=== PATIENT | male | born 1945 | race Caucasian/White ===

== ENCOUNTER → 2016-09-23 | Outpatient (CLI) | payer MEDICARE, OTHER ==
--- NOTE | 2016-09-23 14:29 | CT ---
EXAMINATION TYPE: CT brain w con DATE OF EXAM: 09/23/2016 COMPARISON: NONE HISTORY: continuous NAVARRO CT DLP: 1115 mGycm Automated exposure control for dose reduction was used. CONTRAST: CT scan of the head is performed with IV Contrast, patient injected with 100 mL of Omnipaque 300. FINDINGS: There is no abnormal enhancing mass or midline shift identified. The ventricles and sulci are within normal limits in size. The globes are intact and the visualized sinuses are clear. IMPRESSION: Negative contrast enhanced head CT exam.
== END | disposition home or self-care (01) ==
LOC: RADCTMAIN 13:46
PROVIDERS: ATTEND Family Medicine
DX: R51 Headache (principal)
CPT/HCPCS: 70460; Q9967

== ENCOUNTER → 2017-06-04 | Outpatient (CLI) | payer MEDICARE, OTHER ==
--- NOTE | 2017-06-04 14:20 | CT ---
EXAMINATION TYPE: CT cervical spine wo con DATE OF EXAM: 06/04/2017 COMPARISON: NONE HISTORY: Patient complains of chronic posterior neck pain. CT DLP: 552.5 mGycm Automated exposure control for dose reduction was used. TECHNIQUE: CT scan of the cervical spine is obtained without contrast, axial images are obtained, sa gittal and coronal reformatted images are also reviewed. FINDINGS: Assessment spinal canal and in particular spinal cord limited by noncontrast technique, res olution and artifact . There is loss of the normal cervical lordosis. Slight kyphosis noted with severe degenerative disc di sease at levels C3-T1 and facet arthropathy to millimeter anterolisthesis of C3 on C4 likely degenera tive. C2-C3 there is facet arthropathy greater on the left and uncovertebral joint projecting. Moderate cassy ateral foraminal encroachment seen. No obvious disc herniation. At C3-C4 there is severe degenerative disc disease with marked facet arthropathy and vertebral joint projecting. Severe bilateral foraminal encroachment. No obvious disc herniation. At C4-C5 there is moderate degenerative disc disease. There is facet arthropathy and uncovertebral sami int hypertrophy. Posterior cervical spondylosis noted with mild effacement of thecal sac. No definite disc herniation. Mild left foraminal encroachment. At C5-C6 there is severe degenerative disc disease with posterior cervical spondylosis. Facet arthrop athy and uncovertebral joint hypertrophy contribute to severe foraminal encroachment. Suspect canal s tenosis more adequately assessed with MRI. At C6-C7 severe degenerative disc disease with posterior spondylosis, uncovertebral joint hypertrophy and facet arthropathy. Moderate bilateral foraminal encroachment. Suspect canal stenosis. Due to red uced resolution artifact MRI recommended. C7-T1 there is no obvious disc herniation or canal stenosis. Neural foramina appear patent. There is degenerative disc disease. Visualized prevertebral soft tissues within normal limits. There is an area of right-sided lymphadeno shelley within the right carotid space measuring 1.4 cm in short axis compatible with pathologic adenop athy Skull base is clear. Nasopharynx and oropharynx symmetric. Parotid glands have a normal appearance. L iveth apices clear. IMPRESSION: 1. Severe multilevel degenerative disc disease and facet arthropathy. Canal stenosis at C5-6 and C6-C 7 is noted. 2. Multilevel significant neural foraminal encroachment. 3. There is pathologic adenopathy within the soft tissues of the right neck measuring 1.4 cm in short axis. Recommend CT soft tissue neck for further evaluation.
== END | disposition home or self-care (01) ==
LOC: RADCTMAIN 13:05
PROVIDERS: ATTEND Family Medicine
DX: M48.02 Spinal stenosis, cervical region (principal); M50.31 Other cervical disc degeneration, high cervical region; M46.92 Unspecified inflammatory spondylopathy, cervical region; R59.0 Localized enlarged lymph nodes; Z88.2 Allergy status to sulfonamides
CPT/HCPCS: 72125

== ENCOUNTER 2017-07-02 11:43 | Day surgery (SDC) | payer MEDICARE, OTHER ==
[2017-07-02 12:37] VITALS: RESP 16; TEMP 97.7
--- NOTE | 2017-07-02 15:01 | US ---
EXAMINATION TYPE: US biopsy lymph node DATE OF EXAM: 07/02/2017 HISTORY: Submandibular mass. FINDINGS: Maximal barrier technique was utilized. The skin overlying a suitable path to the patient' s mass was localized with ultrasound and the overlying skin prepped and draped. Ultrasound was utili zed with sterile technique. Lidocaine was used for local anesthesia. A single pass with a 25-gauge n eedle was made under ultrasound guidance into the lesion and aspirated specimen submitted to cytology . A skin flavia was made with a scalpel. An 18-gauge needle was advanced under direct ultrasound guid ance and core specimen obtained of the mass. Specimen submitted in formalin to Pathology. Following the procedure, hemostasis achieved and the patient is discharged in stable condition without complic ation. IMPRESSION:STATUS POST ULTRASOUND GUIDED CORE BIOPSY OF submandibular MASS and fine-needle aspiration , PATHOLOGY IS PENDING. THIS PROCEDURE IS PERFORMED BY THE UNDERSIGNED.
[2017-07-02 15:59] VITALS: BP 136/83; PULSE 57
== END 2017-07-02 13:50 | disposition home or self-care (01) ==
LOC: RADPROMAIN 11:43
PROVIDERS: ATTEND Surgery
DX: C77.0 Secondary and unspecified malignant neoplasm of lymph nodes of head, face and neck (principal); Z88.0 Allergy status to penicillin
CPT/HCPCS: 38505; 76942; 88173; 88305; 88341; 88342

== ENCOUNTER → 2017-07-18 | Outpatient (CLI) | payer MEDICARE, OTHER ==
--- NOTE | 2017-07-20 13:26 | PE ---
Nuclear medicine PET/CT HISTORY: Head and neck cancer, initial Patient received 13.8 mCi F-18 FDG intravenously in delayed scanning was performed from the skull bas e to the mid thighs. There were small [id number] images obtained of the head and neck. Localizatio n and attenuation correction CT scan was also performed. Correlation to CT cervical spine 06/04/2017 FINDINGS: Head and neck: The right-sided adenopathy in the submandibular location is again noted, there is asso ciated hypermetabolic uptake, SUV is 5-6. No additional associated adenopathy or hypermetabolic upta ke. CHEST: There is no mediastinal adenopathy. No evident lung mass. There is wedge-shaped increased atte nuation at the left lung base most typical of subsegmental atelectasis, no significant hypermetabolic uptake. There is no pleural or pericardial effusion. Ascending aorta is aneurysmal measuring approxi mately 4.8 cm in greatest dimension, descending aorta also ectatic and 3.4 cm. Small amount of jackson ry artery calcification. There is hiatal hernia with partial intrathoracic stomach present. Abdomen pelvis: The kidneys are largely replaced by cysts on the right greater than left. No evident adrenal mass or liver mass. No retroperitoneal adenopathy. No suspicious hypermetabolic uptake. Surgi wilma clips noted in the left inguinal region, small left inguinal hernia may be present. Prostate is e nlarged. Osseous structures show no suspicious hypermetabolic uptake. Degenerative disc change present at the lumbosacral junction. IMPRESSION: Suspicious hypermetabolic uptake is localized to the submandibular node on the right. Aor tic aneurysm. Additional findings above.
== END | disposition home or self-care (01) ==
LOC: RADPETMAIN 08:36
PROVIDERS: ATTEND Radiology Diagnostic Radiology
DX: C09.9 Malignant neoplasm of tonsil, unspecified (principal); R59.0 Localized enlarged lymph nodes; J98.11 Atelectasis; I71.2 Thoracic aortic aneurysm, without rupture; I25.10 Atherosclerotic heart disease of native coronary artery without angina pectoris; N28.1 Cyst of kidney, acquired; N40.0 Benign prostatic hyperplasia without lower urinary tract symptoms; Z98.890 Other specified postprocedural states
CPT/HCPCS: 78815; A9552

== ENCOUNTER → 2017-07-31 | Outpatient (CLI) | payer MEDICARE, OTHER ==
[2017-07-31 11:22] LABS: Basophils % (A) 1 %; Eosinophils # (A) 0.2 k/uL (0-0.7); Eosinophils % (A) 3 %; HGB 17.1 gm/dL (13.0-17.5); Lymphocytes # (A) 1.8 k/uL (1.0-4.8); Lymphocytes % (A) 28 %; MCH 29.8 pg (25.0-35.0); MCHC 33.5 g/dL (31.0-37.0); MCV 88.8 fL (80.0-100.0); Mean Platelet Volume 6.9; Monocytes # (A) 0.4 k/uL (0-1.0); Monocytes % (A) 7 %; Neutrophils # (A) 3.7 k/uL (1.3-7.7); Neutrophils % (A) 59 %; Platelet Count 214 k/uL (150-450); RBC 5.75 m/uL (4.30-5.90); RDW 14.1 % (11.5-15.5); WBC 6.3 k/uL (3.8-10.6)
[2017-07-31 11:51] LABS: Albumin 4.5 g/dL (3.5-5.0); Calcium 10.1 mg/dL (8.4-10.2); Potassium 4.6 mmol/L (3.5-5.1); Total Bilirubin 0.9 mg/dL (0.2-1.3); Total Protein 7.4 g/dL (6.3-8.2)
== END | disposition home or self-care (01) ==
LOC: LABPAT 10:47
PROVIDERS: ATTEND Anesthesiology
DX: Z01.812 Encounter for preprocedural laboratory examination (principal); C09.9 Malignant neoplasm of tonsil, unspecified; Z79.899 Other long term (current) drug therapy
CPT/HCPCS: 80053; 85025

== ENCOUNTER 2017-08-06 09:08 | Day surgery (SDC) | payer MEDICARE, OTHER ==
[2017-07-30 16:06] VITALS: BMI 36.6
[~2017-08-06 09:08] MED LIST: DEXAMETHASONE SOD PHOSPHATE 10 MG/ML 1 ML VIAL IV ONE; DEXAMETHASONE SOD PHOSPHATE 4 MG/ML 1 ML VIAL IV ONE; FAMOTIDINE 20 MG/2 ML VIAL IV ONE; LACTATED RINGERS 1,000 ML IV SCH; LIDOCAINE 1% 20 ML VIAL (10MG/ML) FOR IV START INTRADERMA PRN; MIDAZOLAM 2 MG/2 ML VIAL IV PRN; ONDANSETRON 4 MG/2 ML VIAL IVP ONE; SCOPOLAMINE 1.5MG/72HR PATCH TRANSDERM ONE; fentaNYL (PF) 50 MCG/ML 2 ML AMP IV PRN
[2017-08-06] MEDS ORDERED: SUCCINYLCHOLINE CHLORIDE VIAL 200 MG/10 ML VIAL IV ONE (10:49)
[2017-08-06] MEDS ORDERED: MIDAZOLAM 2 MG/2 ML VIAL ONE (10:49)
[2017-08-06] MEDS ORDERED: fentaNYL (PF) 50 MCG/ML 2 ML AMP ONE (10:49)
[2017-08-06] MEDS ORDERED: LIDOCAINE 1% INJ 10MG/ML (20 ML MDV) ONE (10:49)
[2017-08-06] MEDS ORDERED: ROCURONIUM BROMIDE 10 MG/ML 10 ML VIAL IV ONE (10:49)
[2017-08-06] MEDS ORDERED: DEXAMETHASONE SOD PHOS (MDV) 100 MG/10 ML VIAL ONE (10:49)
[2017-08-06] MEDS ORDERED: GLYCOPYRROLATE 0.2 MG/ML 2 ML VIAL ONE (10:49)
[2017-08-06] MEDS ORDERED: PROPOFOL 10 MG/ML 20 ML VIAL IV ONE (10:49)
[2017-08-06] MEDS ORDERED: NEOSTIGMINE 1 MG/ML 10 ML VIAL ONE (10:49)
[2017-08-06] MEDS ORDERED: LIDOCAINE 1%-EPI 1:100,000 20 ML VIAL SQ ONE (11:08)
[2017-08-06] MEDS ORDERED: BUPIVACAINE (PF) 0.5% 30 ML VIAL SQ ONE (11:09)
[2017-08-06 11:50] VITALS: TEMP 96.9
--- NOTE | 2017-08-06 12:08 | P.OP ---
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 The primary was unable to be identified and a triple endoscopy and survey biopsies including nasopharyngeal biopsies were a tonsillectomy etc. were recommended. All risks, benefits, and alternative therapies were discussed. Consent was obtained and all questions were answered. Operative Findings: Patient had an enlarged tonsil on the right with irregularity to the nasopharynx and right base of tongue which were biopsied. No other pathology was noted. Description of Procedure: This patient was taken to the operative room and placed in the supine position. A general inhalation anesthetic was administered to the patient by mask and subsequently intubated with a cuffed endotracheal tube utilizing a #5 CRITICAL CARE PARAMEDIC tube. A Jako laryngoscope was placed into the patient's mouth with care to avoid any trauma to the lips teeth gums and tongue. The entire oropharynx, hypopharynx was evaluated with use of an endoscope and microscopic Zeiss microscope evaluation utilizing a Jako laryngoscope. There was an area on the right base of tongue that was biopsied the rest of the oropharynx and hypopharynx was unremarkable. The Jako laryngoscope that we utilized for this examination was removed. An esophagoscope was inserted utilizing a rigid esophagoscope and the entire length of the esophagus was evaluated. There is no signs of any esophageal abnormalities. We went from the upper to the lower esophageal sphincter and followed the entire length of the esophagus and there is no evidence of reflux Mitchell's esophagus or any other abnormality. A bronchoscope was inserted and all 12 segments of the lungs were evaluated to the extent of visualization. There is no signs of any mucosal abnormality no signs of any other pulmonary issues. A 0 endoscope was inserted into the nose and the nasopharynx was visualized and was biopsied and a survey fashion. Patient tolerated this well. The patient was taken to postanesthesia recovery in excellent condition and follow-up will be in the office next week. Patient is scheduled for chemotherapy and a dental evaluation.
--- NOTE | 2017-08-06 12:20 | P.OP ---
Date of Procedure: 08/06/17 Preoperative Diagnosis: Right neck cancer Postoperative Diagnosis: Same Procedure(s) Performed: Right-sided tonsillectomy Anesthesia: DEONTE Surgeon: Glenn Spencer Estimated Blood Loss (ml): 5 Pathology: other (right tonsil) Condition: stable Disposition: PACU Indications for Procedure: Patient has right neck cancer tonsil as an etiology needs to be ruled out Operative Findings: Slightly enlarged right tonsil Description of Procedure: Patient was taken to the operative room placed in the supine position. A general inhalation anesthetic was administered to the mouth was opened with McIvor mouth gag. The tonsil was grasped with an Allis forceps and brought medially on the right was removed with use of Coblation and hemostasis was spontaneous. The area was injected with Marcaine and no bleeding was encountered. Complete tonsillectomy on the right side was accomplished.
[2017-08-06] MEDS ORDERED: HYDROcodone/APAP 5-325MG 1 EACH TAB PO ONE (13:22)
[2017-08-06 13:25] VITALS: BP 129/90; PULSE 77; RESP 18
== END 2017-08-06 14:02 | disposition home or self-care (01) ==
LOC: OR 09:08
PROVIDERS: ATTEND Otolaryngology
DX: J35.1 Hypertrophy of tonsils (principal); C77.0 Secondary and unspecified malignant neoplasm of lymph nodes of head, face and neck; R05 Cough; R47.02 Dysphasia; M19.90 Unspecified osteoarthritis, unspecified site; I10 Essential (primary) hypertension; K21.9 Gastro-esophageal reflux disease without esophagitis; Z86.718 Personal history of other venous thrombosis and embolism; Z87.891 Personal history of nicotine dependence; Z88.0 Allergy status to penicillin; Z79.1 Long term (current) use of non-steroidal anti-inflammatories (NSAID); Z79.82 Long term (current) use of aspirin; Z79.51 Long term (current) use of inhaled steroids; Z79.899 Other long term (current) drug therapy
CPT/HCPCS: 42826; 31536; 43191; 31622; 42999; 88304; 88305; J2250; J0330; J1100 ×2; J2710; J2001; J3010; J2704

== ENCOUNTER 2017-09-15 11:12 | Day surgery (SDC) | payer MEDICARE, OTHER ==
[2017-09-10 15:52] VITALS: BMI 35.2
[~2017-09-15 11:12] MED LIST changes: -DEXAMETHASONE SOD PHOSPHATE 10 MG/ML 1 ML VIAL IV ONE; -DEXAMETHASONE SOD PHOSPHATE 4 MG/ML 1 ML VIAL IV ONE; -FAMOTIDINE 20 MG/2 ML VIAL IV ONE; -ONDANSETRON 4 MG/2 ML VIAL IVP ONE; -SCOPOLAMINE 1.5MG/72HR PATCH TRANSDERM ONE; -fentaNYL (PF) 50 MCG/ML 2 ML AMP IV PRN
[2017-09-15 11:31] VITALS: RESP 16; TEMP 97
[2017-09-15] MEDS ORDERED: LIDOCAINE 1% INJ 10MG/ML (20 ML MDV) ONE (12:26)
[2017-09-15] MEDS ORDERED: PROPOFOL 10 MG/ML 20 ML VIAL IV ONE (12:26)
--- NOTE | 2017-09-15 12:54 | P.PCN ---
Date of Procedure: 09/15/17 Procedure(s) Performed: Procedure: Total colonoscopy. Preoperative diagnosis: Screening for neoplasia. Postoperative diagnosis: Diverticulosis with no evidence of acute diverticulitis , strictures, polyps or cancer. Preparation: HalfLytely prep. Sedation: Was provided by anesthesia. Brief clinical history: The patient is a 72-year-old male who is scheduled for this evaluation for screening for neoplasia because of history of polyps. His last exam was more than 5 years ago. The patient has no abdominal complaints, bleeding or anemia. He is having some issues with constipation related to treatment he is receiving for lymph node cancer. Procedure: With the patient on his left lateral decubitus position and after informed consent and adequate sedation, the perianal area was inspected and it did not show any fissures or fistulas. There were no masses felt on digital rectal examination. The Olympus CFQ 160L video colonoscope was then inserted in the rectum in the usual fashion and advanced to the cecum. There were multiple diverticular orifices seen scattered mostly on the left side with occasional diverticular orifices seen around the hepatic flexure and on the right side with no evidence of acute diverticulitis or strictures. No polyps or tumors were seen. I retroflexed the endoscope in the rectum before the endoscope was withdrawn. The patient tolerated the procedure well. Plan: The patient was reassured. Discussed dietary measures. He will follow up with you as planned and I recommended repeat colonoscopy in 5 years.
[2017-09-15 13:11] VITALS: BP 106/66; PULSE 63
== END 2017-09-15 13:37 | disposition home or self-care (01) ==
LOC: ORWHC2ENDO 11:12
DX: Z12.11 Encounter for screening for malignant neoplasm of colon (principal); K57.30 Diverticulosis of large intestine without perforation or abscess without bleeding; Z86.010 Personal history of colon polyps; I25.10 Atherosclerotic heart disease of native coronary artery without angina pectoris; K21.9 Gastro-esophageal reflux disease without esophagitis; M19.90 Unspecified osteoarthritis, unspecified site; Z86.718 Personal history of other venous thrombosis and embolism; Z88.0 Allergy status to penicillin
CPT/HCPCS: J2001; J2704; G0105; 45378

== ENCOUNTER → 2017-09-24 | Outpatient (CLI) | payer MEDICARE, OTHER ==
[2017-09-24 15:09] LABS: Albumin 4.4 g/dL (3.5-5.0); Magnesium 1.9 mg/dL (1.6-2.3); Total Bilirubin 1.4 mg/dL (0.2-1.3); Total Protein 7.8 g/dL (6.3-8.2)
[2017-09-24 15:26] LABS: Potassium 4.6 mmol/L (3.5-5.1)
--- NOTE | 2017-09-24 18:03 | NM ---
EXAMINATION TYPE: NM pul vent and perfuse DATE OF EXAM: 09/24/2017 COMPARISON: NONE HISTORY: Dyspnea TECHNIQUE: Utilizing inhalation of 39.5 mCi Tc 99m DTPA aerosol and intravenous injection of 5 mCi o f Tc 99m MAA, ventilation and perfusion images are acquired post injection in multiple projections. FINDINGS: The radiotracer distribution, on both the perfusion and ventilation scintigraphic images, i s moderately heterogeneous in both the right and left lung. These are predominantly matched bilateral scintigraphic defects, with the lung ventilation defects be ing slightly greater than the lung perfusion defects. IMPRESSION: Moderately heterogeneous distribution of the radiopharmaceutical activity. Overall impression is low probability for the diagnosis of pulmonary embolism.
== END ==
LOC: RADCTMAIN 14:17
PROVIDERS: ATTEND Internal Medicine Hematology & Oncology
DX: R06.02 Shortness of breath (principal); Z88.0 Allergy status to penicillin
CPT/HCPCS: 80053; 83735; 78582; A9540; A9567

== ENCOUNTER → 2017-12-05 | Outpatient (CLI) | payer MEDICARE, OTHER | LOC: RADPETMAIN 11:39 | PROVIDERS: ATTEND Internal Medicine Hematology & Oncology | DX: Z53.9 Procedure and treatment not carried out, unspecified reason (principal) ==

== ENCOUNTER → 2017-12-12 | Outpatient (CLI) | payer MEDICARE, OTHER ==
--- NOTE | 2017-12-12 20:24 | PE ---
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 TECHNIQUE: Following the intravenous administration of 10.12 mCi of F-18 FDG, whole body images are performed from the skull base to the midthigh. Images are reviewed on the computer in the coronal, a xial, and sagittal planes. Reconstructed rotating images are created on independent workstation and reviewed on the computer. A noncontrast CT is performed in conjunction with the PET scan. SCAN: Subsequent Scan FINDINGS: SKULL BASE AND NECK: Previously enlarged right submandibular lymph node is diminished in size on cur rent study with more central hypodensity or necrosis, and measures 1.4 x 1.1 cm axial image 48 and is currently ametabolic. No new areas of abnormal hypermetabolic uptake are seen. CHEST, MEDIASTINUM, AND HILAR REGION: Background chronic emphysematous changes redemonstrated. There is persistent wedge-shaped area of consolidation left lung base above diaphragm without abnormal hype rmetabolic uptake suggesting atelectasis and/or scarring. ABDOMEN AND PELVIS: No new areas of abnormal hypermetabolic uptake are identified. OSSEOUS STRUCTURES: No new areas of abnormal hypermetabolic uptake are seen. OTHER CT: Cardiomegaly is redemonstrated. Ascending aorta measures up to 4.8 cm in diameter on axial image 96 not significantly changed from prior. Coronary artery calcification is again seen which is n oted marker for coronary artery disease. Moderate to large size hiatal hernia is redemonstrated. There are innumerable cysts bilaterally throughout both kidneys, underlying polycystic kidney disease is suspected. Correlate clinically. No significant change from prior. Diverticula scattered throughout the colon most prominent in the sigmoid colon is redemonstrated. Prostate gland is stable and suspected mildly enlarged. Surgical clips left groin region are redemonstrated. There is persistent moderate sized fat-containin g left inguinal hernia felt stable. There is mild to moderate vascular calcification of aorta extending into branch vessels. IMPRESSION: Positive treatment response in right-sided neck adenopathy. No new or metastatic disease is identified.
== END | disposition home or self-care (01) ==
LOC: RADPETMAIN 14:46
PROVIDERS: ATTEND Internal Medicine Hematology & Oncology
DX: C09.0 Malignant neoplasm of tonsillar fossa (principal); R59.0 Localized enlarged lymph nodes
CPT/HCPCS: 78815; A9552

== ENCOUNTER 2017-12-22 09:08 | Day surgery (SDC) | payer MEDICARE, OTHER ==
[2017-12-22 10:12] VITALS: RESP 16; TEMP 97.1
[2017-12-22 10:39] VITALS: BP 135/82; PULSE 60
--- NOTE | 2017-12-22 13:13 | US ---
EXAMINATION TYPE: US fine needle aspiration DATE OF EXAM: 12/22/2017 COMPARISON: PET/CT 07/18/2017 HISTORY: Right neck mass. Maximal barrier technique was utilized. After informed consent, skin overlying the lesion in the rig ht neck was localized with ultrasound and the overlying skin prepped and draped. Ultrasound was utili zed using sterile technique. Lidocaine was used for local anesthesia. Four passes with a 25-gauge ne edle were made into the nodule and aspirated specimen was submitted to cytology. Following the proce dure hemostasis achieved. No immediate complication. The patient discharged in stable condition. IMPRESSION: STATUS POST ULTRASOUND GUIDED FINE NEEDLE ASPIRATION OF RIGHT NECK MASS, PATHOLOGY IS ELISA GAN. THIS PROCEDURE WAS PERFORMED BY THE UNDERSIGNED.
== END 2017-12-22 10:30 | disposition home or self-care (01) ==
LOC: RADPROMAIN 09:08
PROVIDERS: ATTEND Otolaryngology
DX: R59.0 Localized enlarged lymph nodes (principal); M19.90 Unspecified osteoarthritis, unspecified site; K11.7 Disturbances of salivary secretion; T66.XXXA Radiation sickness, unspecified, initial encounter; I10 Essential (primary) hypertension; Z85.810 Personal history of malignant neoplasm of tongue; Z79.01 Long term (current) use of anticoagulants; Z79.82 Long term (current) use of aspirin; Z79.899 Other long term (current) drug therapy; Z79.51 Long term (current) use of inhaled steroids; Z87.891 Personal history of nicotine dependence; Z79.1 Long term (current) use of non-steroidal anti-inflammatories (NSAID); Z79.2 Long term (current) use of antibiotics; Z92.3 Personal history of irradiation; Z92.21 Personal history of antineoplastic chemotherapy
CPT/HCPCS: 10022; 76942; 88173; 88305

== ENCOUNTER → 2018-01-11 | Outpatient (CLI) | payer MEDICARE, OTHER ==
--- NOTE | 2018-01-11 13:56 | US ---
EXAMINATION TYPE: US thyroid st tissue head/neck DATE OF EXAM: 01/11/2018 COMPARISON: Previous exam dated 12/22/2017 CLINICAL HISTORY: R22.1 SWELLING MASS. 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 IMPRESSION: The abnormal node in the right neck shows a similar appearance to prior exam.
== END | disposition home or self-care (01) ==
LOC: RADUSWWP 13:08
PROVIDERS: ATTEND Otolaryngology
DX: R22.1 Localized swelling, mass and lump, neck (principal)
CPT/HCPCS: 76536

== ENCOUNTER 2018-01-19 09:18 | Day surgery (SDC) | payer MEDICARE, OTHER ==
[2018-01-19 09:39] VITALS: RESP 14; TEMP 98.2
[2018-01-19 10:28] VITALS: BP 130/83; PULSE 71
--- NOTE | 2018-01-19 14:45 | US ---
EXAMINATION TYPE: US fine needle aspiration DATE OF EXAM: 01/19/2018 COMPARISON: Previous exam 12/22/2017 HISTORY: Right neck mass Maximal barrier technique was utilized. After informed consent, skin overlying the lesion in the rig ht neck was localized with ultrasound and the overlying skin prepped and draped. Ultrasound was utili zed using sterile technique. Lidocaine was used for local anesthesia. Four passes with a 25-gauge ne edle were made into the nodule and aspirated specimen was submitted to cytology. Following the proce dure hemostasis achieved. No immediate complication. The patient discharged in stable condition. IMPRESSION: STATUS POST ULTRASOUND GUIDED FINE NEEDLE ASPIRATION OF RIGHT NECK NODULE, PATHOLOGY IS P ENDING. THIS PROCEDURE WAS PERFORMED BY THE UNDERSIGNED.
== END 2018-01-19 10:40 | disposition home or self-care (01) ==
LOC: RADPROMAIN 09:18
PROVIDERS: ATTEND Otolaryngology
DX: R22.1 Localized swelling, mass and lump, neck (principal)
CPT/HCPCS: 10022; 76942; 88173; 88305

== ENCOUNTER 2018-01-19 16:25 | Emergency (ER) | payer MEDICARE, OTHER ==
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
[2018-01-19 18:05] LABS: Basophils % (A) 0 %; Eosinophils # (A) 0.2 k/uL (0-0.7); Eosinophils % (A) 4 %; HCT 42.6 % (39.0-53.0); HGB 14.4 gm/dL (13.0-17.5); Lymphocytes # (A) 0.9 k/uL (1.0-4.8); Lymphocytes % (A) 19 %; MCH 31.8 pg (25.0-35.0); MCHC 33.7 g/dL (31.0-37.0); Mean Platelet Volume 8.2; Monocytes # (A) 0.4 k/uL (0-1.0); Monocytes % (A) 8 %; Neutrophils % (A) 67 %; Platelet Count 165 k/uL (150-450); RBC 4.51 m/uL (4.30-5.90); RDW 12.7 % (11.5-15.5); WBC 4.5 k/uL (3.8-10.6)
[2018-01-19 18:10] LABS: MCV 94.5 fL (80.0-100.0)
[2018-01-19 18:12] LABS: D-Dimer 0.26 mg/L FEU (<0.60); INR 1.1 (<1.2); Partial Thromboplastin Time 24.2 sec (22.0-30.0); Prothrombin Time 10.4 sec (9.0-12.0)
[2018-01-19 18:13] LABS: Albumin 4.3 g/dL (3.5-5.0); Calcium 9.9 mg/dL (8.4-10.2); Magnesium 1.7 mg/dL (1.6-2.3); Total Bilirubin 0.6 mg/dL (0.2-1.3); Total Protein 7.4 g/dL (6.3-8.2)
[2018-01-19 18:20] LABS: Creatine Kinase 54 U/L (55-170)
[2018-01-19 18:33] LABS: Creatine Kinase MB 0.9 ng/mL (0.0-2.4); Troponin I <0.012 ng/mL (0.000-0.034)
[2018-01-19 19:21] LABS: Appearance,Urine Clear (Clear); Bilirubin,Urine Negative (Negative); Blood,Urine Negative (Negative); Color,Urine Yellow; Glucose,Urine (UA) Negative (Negative); Ketones,Urine Negative (Negative); Leukocyte Esterase,Urine Negative (Negative); Nitrite,Urine Negative (Negative); Protein,Urine Trace (Negative); Specific Gravity,Urine 1.019 (1.001-1.035); Urobilinogen,Urine <2.0 mg/dL (<2.0)
--- NOTE | 2018-01-19 19:21 | XR ---
EXAMINATION: XR chest 2V DATE AND TIME: 01/19/2018 6:11 PM CLINICAL INDICATION: difficulty breathing TECHNIQUE: PA and lateral COMPARISON: 03/14/2009 FINDINGS: There is silhouetting of the entire left hemidiaphragm consistent with left lower lobe airl essness, associated with moderate elevation of the hemidiaphragm. No definite pleural effusion. The f indings are consistent with a clinical diagnosis of left lower lobe bronchopneumonia. Remainder of the lungs are clear bilaterally. Remainder of the pleural space examination is negative. Mildly enlarged cardiac silhouette, unchanged. Aortic ectasia also similar when compared to the prior study. IMPRESSION: LEFT LOWER LOBE AIRLESSNESS. Six-week follow-up PA and lateral chest radiographs recommended to prove resolution of the findings.
[2018-01-19 19:56] VITALS: BP 127/90; RESP 16
[2018-01-19 19:57] VITALS: PULSE 68; TEMP 97.8
== END 2018-01-19 20:13 | disposition home or self-care (01) ==
LOC: EC 16:25
DX: J18.1 Lobar pneumonia, unspecified organism (principal); N28.9 Disorder of kidney and ureter, unspecified; C96.9 Malignant neoplasm of lymphoid, hematopoietic and related tissue, unspecified; Z79.82 Long term (current) use of aspirin; Z79.1 Long term (current) use of non-steroidal anti-inflammatories (NSAID); Z79.51 Long term (current) use of inhaled steroids; Z79.01 Long term (current) use of anticoagulants; Z79.899 Other long term (current) drug therapy; Z88.0 Allergy status to penicillin; Z87.891 Personal history of nicotine dependence; Z86.718 Personal history of other venous thrombosis and embolism
CPT/HCPCS: 96365 ×2; 99285 ×2; 36415; 93005; 85379; 88305; 88173; 83880; 80053; 82550; 82553; 83690; 83735; 84484; 85025; 85610; 85730; 81003; 71046; 76942; 10022; J0696

== ENCOUNTER → 2018-03-08 | Outpatient (CLI) | payer MEDICARE, OTHER ==
--- NOTE | 2018-03-08 10:41 | CT ---
EXAMINATION TYPE: CT neck chest w con DATE OF EXAM: 03/08/2018 10:09 AM COMPARISON: HISTORY: Carcinoma of tonsillar fossa CT DLP: 1930 mGycm Automated exposure control for dose reduction was used. CONTRAST: CT scan of the neck is performed following with IV Contrast, patient injected with 80 mL of Isovue 30 0. Axial images are obtained, coronal and sagittal reformatted images are reviewed. FINDINGS: Airway: There is soft tissue density within the supraglottic airway near the aryepiglottic folds with obscuration of the piriform sinuses and narrowing of the supraglottic airway. The false focal cords are opposed limiting evaluation. True vocal cords are grossly unremarkable. There appears to be secre tions within the dependent upper trachea. Parotid/submandibular glands: Submandibular glands bilaterally appear atrophic as do the parotid gla nds. This may be an age-related finding or posttreatment change. Carotid/Vascular Structures: The amount of contrast given due to the patient's suboptimal laboratory values somewhat limits evaluation of the carotids however no gross evidence of occlusion is seen. Osseous Structures: Moderate multilevel degenerative change of the cervical spine is seen. Postsurgic al changes are noted of the maxillary sinuses. Scant mucosal thickening is present within the ethmoid sinus. Remaining paranasal sinuses and mastoid air cells are well aerated. Other: There is diminished size of the abnormal appearing right submandibular lymph node in compariso n to the prior CT neck L4 518 where this measured 1.5 cm in short axis and currently measures 0.8 cm in short axis, within normal limits of size. However this is abnormal in appearance with a slightly n ecrotic central component. Findings favor treated disease. There is prominence of the bilateral parapharyngeal tonsils without discrete mass. There is generalized haziness of the neck anteriorly such as on image 58 within the subcutaneous fat, possibly posttreatment change. CHEST: Scattered subsegmental atelectasis is seen within the lungs. No discrete pulmonary nodule or m ass is identified. There is left hemidiaphragm elevation and a moderate hiatal hernia the folds upon itself without distention of the upper esophagus. There is slight rightward mediastinal shift seconda ry to the left diaphragmatic elevation. There are mild coronary artery calcifications. Ascending thoracic aorta is upper limits of normal siz e measuring 4.0 cm. Heart is mildly enlarged. No mediastinal adenopathy is seen. There are numerous bilateral large renal cysts that are seen on the prior PET/CT of 12/12/2017, limit ing evaluation for hydronephrosis. Kidneys measure up to 9.6 cm on the right and 8.7 cm on the left. Percutaneous enteric gastric tube is present. Mild multilevel degenerative changes of the thoracic sp ine are seen. IMPRESSION: 1. Continued decrease in size of the known pathologic right submandibular solitary lymph node favorin g response to treatment. 2. There remains enlargement of the bilateral pharyngeal tonsils without discrete mass. There is narr owing of the oropharynx by possible supraglottic secretions although laryngoscopy could further asses s this finding. 3. Chronic left hemidiaphragm elevation, moderate hiatal hernia. Upon itself, numerous bilateral samy l cysts suggesting polycystic kidney disease, and left basilar atelectasis. No new findings in the ch est to suggest metastasis.
== END | disposition home or self-care (01) ==
LOC: RADCTMAIN 08:53
PROVIDERS: ATTEND Internal Medicine Hematology & Oncology
DX: C09.0 Malignant neoplasm of tonsillar fossa (principal); J98.6 Disorders of diaphragm; Z88.0 Allergy status to penicillin
CPT/HCPCS: 82565; 84520; 70491; 71260; 36415; Q9967

== ENCOUNTER → 2018-06-16 | Outpatient (CLI) | payer MEDICARE, OTHER ==
--- NOTE | 2018-06-16 11:59 | CT ---
EXAMINATION TYPE: CT neck chest w con DATE OF EXAM: 06/16/2018 COMPARISON: CT neck and chest March 08, 2018 and PET/CT December 12, 2017 HISTORY: rt tonsillar fossa cancer CT DLP: 1272.0 mGycm. Automated Exposure Control for Dose Reduction was Utilized. TECHNIQUE: CT scan of the neck and thorax are performed following with IV Contrast, patient injected with 80 mL of Isovue 300. FINDINGS: NECK: Airway appears grossly patent. The epiglottis and vallecula appears within normal limits. There is slight asymmetry level piriform s inus without obvious mass not significantly changed from most recent CT. Some increasing generalized atrophy of the submandibular glands is noted. Parotid glands are felt sta ble from prior. No significant plaque or stenosis at carotid arteries bilaterally. There is moderate to severe disc space narrowing C3-C4, C5-C6, C6-C7 levels redemonstrated in [facility] cervical spine. No definitive new or greater than 1 cm neck lymph nodes are identified bilaterally. Right submandibul ar lymph node anterior to internal jugular vein measures 9 x 7 mm current study image 66 not signific antly changed from most recent CT. CHEST: LUNGS: There is persistent left lower lobe linear scarring and/or atelectasis. Some consolidation jus t above diaphragm anteriorly is improved. Elevated left hemidiaphragm is redemonstrated. MEDIASTINUM: There are no greater than 1 cm hilar or mediastinal lymph nodes. Small pericardial effus ion is increased measuring up to 14 mm in thickness anteriorly axial image 45. There is persistent mo derate large size fixed hiatal hernia. No cardiomegaly. Coronary artery dilatation redemonstrated. As cending aorta measures up to 4.2 cm diameter on axial image 27. OTHER: There is partial visualization of enlarged kidneys with innumerable thin-walled cysts of varyi ng size and shape consistent with adult type polycystic kidney disease. PEG tube is redemonstrated. IMPRESSION: Stable right submandibular lymph node. No obvious new mass or adenopathy.
== END | disposition home or self-care (01) ==
LOC: RADCTMAIN 09:56
PROVIDERS: ATTEND Internal Medicine Hematology & Oncology
DX: C09.0 Malignant neoplasm of tonsillar fossa (principal)
CPT/HCPCS: 82565; 84520; 70491; 71260; 36415; Q9967

== ENCOUNTER 2018-07-27 10:31 | Day surgery (SDC) | payer MEDICARE, OTHER ==
[2018-07-22 13:58] VITALS: BMI 26.8
[~2018-07-27 10:31] MED LIST changes: -LIDOCAINE 1% 20 ML VIAL (10MG/ML) FOR IV START INTRADERMA PRN; -MIDAZOLAM 2 MG/2 ML VIAL IV PRN
[2018-07-27 11:12] VITALS: RESP 16; TEMP 97.4
[2018-07-27] MEDS ORDERED: LIDOCAINE 1% 20 ML VIAL (10MG/ML) FOR IV START INTRADERMA ONE (11:21)
[2018-07-27] MEDS ORDERED: LIDOCAINE 1% INJ 10MG/ML (20 ML MDV) ONE (12:21)
[2018-07-27] MEDS ORDERED: PROPOFOL 10 MG/ML 20 ML VIAL IV ONE (12:21)
--- NOTE | 2018-07-27 12:51 | P.PCN ---
Date of Procedure: 07/27/18 Procedure(s) Performed: Procedure: Esophagogastroduodenoscopy and biopsy. Preoperative diagnosis: Dysphagia. Postoperative diagnosis: Mild gastritis but no obvious esophagitis or complicated reflux disease. Preparation and sedation: Was provided by anesthesia. Brief clinical history: The patient is a 73-year-old male who was evaluated in the office earlier this month regarding difficulty swallowing. The patient was diagnosed with cancer in the summer of 2017 and has received radiation to his neck. Since that time, he has been having issues with swallowing and dry mouth. There is significant weight loss. The patient receives tube feeding. This evaluation is to assess for esophagitis, complicated reflux disease or other pathology. Procedure: With the patient on his left lateral decubitus position and after informed consent and adequate sedation, I passed a Olympus-GIF H190 video upper endoscope through the cricopharyngeus down the esophagus. GE junction was around 36 cm from the incisors. There was no obvious esophagitis or complicated reflux disease or any obvious hiatal hernia. The endoscope was then passed into the stomach which was insufflated with air and inspected in detail including the retroflex view in the cardia. The gastrostomy feeding tube was noted to be in place. There was some mottling and erythema in the antrum but no ulcers or erosions. Pyloric channel, duodenal bulb, post bulbar area and descending duodenum appeared within normal limits. I obtained biopsies from the antrum and esophagus then the endoscope was withdrawn. The patient tolerated the procedure well. Plan: The patient was reassured. In light of his weight loss, he will benefit from ongoing enteral nutritional support until such time he can meet his nutritional needs consistently orally. He will follow up with you as planned and I will be happy to see in the office based on his course.
[2018-07-27 12:59] VITALS: BP 109/71; PULSE 63
== END 2018-07-27 15:38 | disposition home or self-care (01) ==
LOC: ORWHC2ENDO 10:31
DX: R13.10 Dysphagia, unspecified (principal); K29.50 Unspecified chronic gastritis without bleeding; R63.4 Abnormal weight loss; G47.33 Obstructive sleep apnea (adult) (pediatric); K21.9 Gastro-esophageal reflux disease without esophagitis; Z92.3 Personal history of irradiation; Z85.89 Personal history of malignant neoplasm of other organs and systems; Z98.42 Cataract extraction status, left eye; Z98.41 Cataract extraction status, right eye; Z86.718 Personal history of other venous thrombosis and embolism; Z88.0 Allergy status to penicillin; Z86.711 Personal history of pulmonary embolism; Z87.891 Personal history of nicotine dependence; Z79.82 Long term (current) use of aspirin; Z79.899 Other long term (current) drug therapy; Z79.02 Long term (current) use of antithrombotics/antiplatelets
CPT/HCPCS: 88305; 43239; J2001; J2704

== ENCOUNTER → 2018-08-18 | Outpatient (CLI) | payer MEDICARE, OTHER ==
[2018-08-18 16:18] LABS: HCT 41.2 % (39.0-53.0); HGB 13.1 gm/dL (13.0-17.5); MCH 28.4 pg (25.0-35.0); MCHC 31.7 g/dL (31.0-37.0); MCV 89.5 fL (80.0-100.0); Platelet Count 237 k/uL (150-450); RBC 4.61 m/uL (4.30-5.90); RDW 15.1 % (11.5-15.5); WBC 5.5 k/uL (3.8-10.6)
[2018-08-18 16:27] LABS: Albumin 3.9 g/dL (3.5-5.0); Calcium 9.2 mg/dL (8.4-10.2); Total Bilirubin 0.5 mg/dL (0.2-1.3)
[2018-08-18 16:46] LABS: INR 0.9 (<1.2); Partial Thromboplastin Time 28.1 sec (22.0-30.0); Prothrombin Time 9.8 sec (9.0-12.0)
[2018-08-18 17:21] LABS: Amorphous Sediment,Urine Rare /hpf; Appearance,Urine Clear (Clear); Bilirubin,Urine Negative (Negative); Blood,Urine Negative (Negative); Color,Urine Yellow; Glucose,Urine (UA) Negative (Negative); Hyaline Casts,Urine 1 /lpf (0-2); Ketones,Urine Negative (Negative); Leukocyte Esterase,Urine Negative (Negative); Mucus,Urine Rare /hpf; Nitrite,Urine Negative (Negative); PH, Urine 5.5 (5.0-8.0); Protein,Urine 1+ (Negative); RBC,Urine 1 /hpf (0-5); Specific Gravity,Urine 1.021 (1.001-1.035); WBC,Urine 1 /hpf (0-5)
== END | disposition home or self-care (01) ==
LOC: LABPAT 14:54
PROVIDERS: ATTEND Orthopaedic Surgery
DX: Z01.812 Encounter for preprocedural laboratory examination (principal); Z01.818 Encounter for other preprocedural examination; Z79.01 Long term (current) use of anticoagulants
CPT/HCPCS: 36415; 80053; 81001; 85027; 85610; 85730; 87070

== ENCOUNTER 2018-08-24 15:01 | Inpatient (IN) | payer MEDICARE, OTHER ==
[~2018-08-24 15:01] MED LIST changes: +BISACODYL 10 MG SUPP RECTAL PRN; +DEXAMETHASONE SOD PHOSPHATE 10 MG/ML 1 ML VIAL IV ONE; +DIAZEPAM 5 MG TAB PO PRN; +HYDROcodone/APAP 5-325MG 1 EACH TAB PO PRN; +HYDROmorphone 0.5 MG/0.5 ML SYRINGE IVP PRN; -LACTATED RINGERS 1,000 ML IV SCH; +LIDOCAINE 1% 20 ML VIAL (10MG/ML) FOR IV START INTRADERMA PRN; +MAGNESIUM HYDROXIDE 2,400 MG/10 ML CUP PO PRN; +MIDAZOLAM 2 MG/2 ML VIAL IV PRN; +NA PHOS,M-B/NA PHOS,DI-BA 133 ML ENEMA RECTAL PRN; +NALOXONE 0.4 MG/ML 1 ML VIAL IV PRN; +ONDANSETRON 4 MG/2 ML VIAL IVP ONE; +ONDANSETRON 4 MG/2 ML VIAL IVP PRN; +SCOPOLAMINE 1.5MG/72HR PATCH TRANSDERM ONE; +ceFAZolin IN SWFI 2 GM/20 ML SYRINGE IVP ONE
[2018-08-24] MEDS: LACTATED RINGERS 1,000 ML IV SCH (15:36)
[2018-08-24] MEDS ORDERED: MELOXICAM 7.5 MG TAB PO ONE (15:42)
[2018-08-24] MEDS ORDERED: fentaNYL (PF) 50 MCG/ML 2 ML AMP IV ONE (15:56)
[2018-08-24] MEDS ORDERED: MIDAZOLAM 2 MG/2 ML VIAL ONE (16:14)
[2018-08-24] MEDS ORDERED: PHENYLEPHRINE-0.9% NACL SYG 1 MG/10 ML SYRINGE ONE (16:14)
[2018-08-24] MEDS ORDERED: ceFAZolin 3,000 MG in SODIUM CHLORIDE 0.9% IRRIGATIO 3,000 ML IRRIGATION ONE (16:16)
[2018-08-24] MEDS ORDERED: ROPIVACAINE 1,100 MG, SODIUM CHLORIDE 0.9% 500 ML 330 ML MISCELLANE PRN ×2 (16:34)
--- NOTE | 2018-08-24 16:34 | P.ANPRN ---
Procedure Note - Anesthesia - Nerve Block Performed Left Adductor Canal Infusion Time Out Performed: Yes Date of Procedure: 08/24/18 Procedure Start Time: 15:55 Procedure Stop Time: 16:10 Location of Patient Procedure: PreOp Indication: Requested by physician Specifically requested for management of pain by DrMohinder: Naman Barahona Sedation Type: Sedate with meaningful contact maintained Preparation: Sterile Prep, Sterile Dressing Position: Supine Catheter: Indwelling Needle Types: Other (see comment) (PUJUNK) Needle Gauge: 20 Technique: Ultrasound Injectate: 0.5% Ropivacaine (see comment for volume) (20 ml) Blood Aspirated: No Pain Paresthesia on Injection Noted: No Resistance on Injection: Normal Events: Uneventful and Well Tolerated
[2018-08-24] MEDS ORDERED: LACTATED RINGERS 1,000 ML IV ONE (17:31)
--- NOTE | 2018-08-24 17:39 | P.OP ---
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 Postoperative Diagnosis: Infected left total knee arthroplasty Procedure(s) Performed: Stage I revision left total knee arthroplasty with placement of antibiotic spacer Implants: Remedy tibial component size large Remedy femoral component size large Sidman Simplex P antibiotic bone cement with tobramycin Anesthesia: spinal Surgeon: Naman Barahona Retread Operator #1: Nilda Carroll Estimated Blood Loss (ml): 200 Pathology: other (Cultures 2) Condition: stable Disposition: PACU Indications for Procedure: This is a 73-year-old gentleman that has had a left total knee arthroplasty placed by my associate Dr. Gatica in the past. A number of months ago he developed an acute infection which was treated with an urgent incision and drainage. He also received 2 venous antibiotics for proximal 6-8 weeks. After the treatment he was doing well, but then the infection returned. After discussing the surgical nonsurgical treatment options with her at length, I recommended a stage I revision right total knee with placement of antibiotic spacer. Informed consent was obtained. Operative Findings: The operative findings are consistent with an infection of the left total knee arthroplasty. Description of Procedure: Patient was seen in the preoperative area consent was reviewed and operative site was marked with a skin marker. An adductor canal pain catheter was placed by anesthesia in the preoperative area. Patient was then brought to the operating room and given preoperative antibiotics intravenously. A spinal anesthetic was administered by the anesthesia department. A tourniquet was placed on the upper thigh and the lower extremity was prepped and draped in usual sterile fashion. A universal timeout was then performed which confirmed the patient's name, surgical site, ALLERGIES, and consent. The tourniquet was inflated to 250 mmHg. A standard and anterior midline approach to the knee was performed. The skin and subcutaneous tissue was dissected down to the patellar tendon. The scar was excised. A medial parapatellar arthrotomy was then performed. A large amount of purulent material was expressed from the knee. This was cultured 2. The knee was then extended, the patellar was everted. Using a saw and osteotome the patellar component was then easily removed. Care was taken to ensure that any remaining cement was removed from the patellar component. Attention was then directed to the femoral component. The femoral component was grossly loose and easily removed with an osteotome and a mallet. The bone underneath the femoral component was intact but was freshened with a saw blade. Any suspicious tissue was debrided about the femoral area. Attention was then directed to the tibia. The tibial component was also grossly loose and easily removed with a Barak. Any remaining cement from the tibia was removed as well. The proximal tibia was then freshened with a saw blade. The cut surfaces of bone were then irrigated with pulsatile lavage. Trials were then used to determine the size of the antibiotic spacer. It was determined it was a large on both the femoral tibial sides. Components were then opened and the cement was mixed. Irricept solution was then used to irrigate the knee as well. The antibiotic spacer was then lightly cemented in place and the tourniquet was released. Hemostasis was obtained. The fascia was then closed with #2 strata fix suture. The subcutaneous tissue was closed with 3-0 Vicryl and 3-0 strata fix. Dermabond glue was used for the skin and placed with the knee in flexion. The patient was placed in a sterile silver dressing. Patient was then transferred to recovery room in stable condition. The assistant director LESA Christy was required due the complexity surgery and the need for a skilled surgical instrument mechanic. She assisted in positioning, draping, retraction, and closure of the wound.
--- NOTE | 2018-08-24 18:58 | XR ---
PROCEDURE: XR knee limited LT -2 views DATE AND TIME: 08/24/2018 6:34 PM CLINICAL INDICATION: Evaluation for Postop abnormality and alignment TECHNIQUE: Department protocol COMPARISON: 07/29/2013 FINDINGS: Portable AP and crosstable lateral views were obtained showing the knee prosthesis anatomic positioning and alignment. Postoperative change noted, no unexpected findings. IMPRESSION: POSTOPERATIVE 2 VIEWS.
[2018-08-24] MEDS: SODIUM CHLORIDE 0.9% 1,000 ML IV SCH (19:36)
[2018-08-24] MEDS: ALBUTEROL NEBULIZED 2.5 MG/3 ML INHALATION SCH (20:19)
[2018-08-24] MEDS: SENNOSIDES-DOCUSATE SODIUM 1 EACH TAB PO SCH (21:56)
[2018-08-24] MEDS: GABAPENTIN 100 MG CAP PO SCH (21:56)
[2018-08-25] MEDS ORDERED: ceFAZolin IN SWFI 2 GM/20 ML SYRINGE IVP ONE (00:33)
[2018-08-25] MEDS ORDERED: HYDROcodone/APAP 5-325MG 1 EACH TAB ONE (00:33)
--- NOTE | 2018-08-25 03:46 | CONS ---
CONSULTATION REASON FOR CONSULTATION: Advice regarding DVT and other multiple medical issues, requested by Dr. Barahona. HISTORY OF PRESENT ILLNESS: This 73-year-old gentleman with a past medical history of DVT, GERD, hypertension, history of pulmonary embolus, sleep apnea, being followed by Dr. Israel in the outpatient setting, underwent stage I revision of left total knee arthroplasty with placement of antibiotic spacer for infected left total knee arthroplasty by Dr. Barahona. There is no history of any chest pain, no history of palpitation, no history of headache, loss of consciousness, nausea, vomiting, diarrhea, fever, rigor or chills. Patient had cancer, also PEG tube placement. The patient receive feeding tubes at 12-hour continuous infusion. PAST MEDICAL HISTORY: 1. History of DVT. 2. GERD. 3. Hypertension. 4. Pulmonary embolism. 5. History of hypothyroidism. HOME MEDICATIONS: 1. Prilosec 20 mg p.o. b.i.d. 2. Toprol-XL 25 mg p.o. daily. 3. Skelaxin 800 mg p.o. t.i.d. 4. Mobic 15 mg p.o. daily. 5. Loratadine 10 mg p.o. daily. 6. Synthroid 25 mcg p.o. daily. 7. [place] 7.5 p.o. q.4 to 6 p.r.n. 8. Neurontin 100 mg p.o. b.i.d. 9. Flonase 2 sprays daily. 10.Iron sulfate 325 mg p.o. daily. 11.Lovenox 120 mg at bedtime. 12.Aspirin 81 mg p.o. daily. 13.Zyloprim 100 mg p.o. daily. 14.Ventolin 2.5 p.o. b.i.d. ALLERGIES: PENICILLIN. FAMILY HISTORY: History of breast cancer in the family. SOCIAL HISTORY: Previous history of smoking. No current smoking or alcohol intake. REVIEW OF SYSTEMS: ENT: Diminished hearing. Diminished vision. CARDIOVASCULAR SYSTEM: No angina, palpitations. RESPIRATORY SYSTEM: As mentioned earlier. GI: As mentioned earlier. : No dysuria or retention. NERVOUS SYSTEM: No numbness, weakness. ALLERGY/IMMUNOLOGY: No asthma, hayfever. MUSCULOSKELETAL: As mentioned earlier. HEMATOLOGY/ONCOLOGY: No history of anemia. ENDOCRINE: Hypothyroidism. CONSTITUTIONAL: As mentioned earlier. DERMATOLOGY: Negative. RHEUMATOLOGY: Negative. PSYCHIATRY: As mentioned earlier. PHYSICAL EXAMINATION: Patient alert and oriented x3. Pulse is 68, blood pressure 95/62, respiration 18, temperature 97.4, pulse ox 94% on room air. HEENT: Conjunctivae normal. Oral mucosa moist. NECK: No jugular venous distention. No carotid bruit. No lymph node enlargement. CARDIOVASCULAR SYSTEM: S1, S2 muffled. No S3. No S4. RESPIRATORY SYSTEM: Breath sounds diminished at the bases. A few scattered rhonchi. ABDOMEN: Soft. PEG tube in situ. No mass palpable. LEGS: Status post surgery. NERVOUS SYSTEM: Higher functions as mentioned earlier. Moves all 4 limbs. No focal motor or sensory deficit. LYMPHATICS: No lymph node palpable in neck, axillae or groin. SKIN: No ulcer, rash, bleeding. JOINTS: No active deforming arthropathy. LABS: The preoperative labs from 08/18 showed CBC within normal limits. Coags within normal limits. Chemistry shows sodium 136, creatinine 1.54 and glucose 110. LFTs are basically normal. The urine at that time was unremarkable. ASSESSMENT: 1. 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 2. History of deep vein thrombosis. 3. Gastroesophageal reflux disease. 4. Hypertension. 5. History of pulmonary embolism. 6. History of sleep apnea. 7. History of anemia. 8. History of throat cancer, status post chemo radiation. 9. Status post PEG tube feeds. 10.History of degenerative joint disease. 11.Remote history of nicotine dependence. RECOMMENDATIONS AND DISCUSSION: In this 73-year-old gentleman who presented with multiple complex medical issues, at this time I recommend to continue current management, continue symptomatic treatment. Otherwise I recommend resuming the home medications. DVT prophylaxis. Incentive spirometry. Proton pump inhibitors. We will follow the patient closely with you. The patient may be asked to follow up with Dr. Larson closely after discharge. Thank you, Dr. Barahona, for letting us participate in the care of this patient. MMODL / IJN: [id number] / MTDD
[2018-08-25] MEDS: ceFAZolin IN SWFI 2 GM/20 ML SYRINGE IVP SCH ×2 (05:05→09:36)
[2018-08-25] MEDS: LACTATED RINGERS 1,000 ML IV SCH (07:53)
[2018-08-25] MEDS: METOPROLOL SUCCINATE (ER) 25 MG TAB.ER.24H PO SCH (08:03)
[2018-08-25] MEDS: PANTOPRAZOLE 40 MG TABLET PO SCH (08:03)
[2018-08-25] MEDS: GABAPENTIN 100 MG CAP PO SCH ×2 (08:03→22:36)
[2018-08-25] MEDS: SODIUM CHLORIDE 0.9% 1,000 ML IV SCH ×2 (08:04→22:36)
[2018-08-25] MEDS: LORATADINE 10 MG TAB PO SCH (08:04)
[2018-08-25] MEDS: ALLOPURINOL 100 MG TAB PO SCH (08:04)
[2018-08-25] MEDS: LEVOTHYROXINE 25 MCG TAB PO SCH (08:04)
[2018-08-25] MEDS: HYDROcodone/APAP 5-325MG 1 EACH TAB PO PRN ×3 (08:06→22:35)
[2018-08-25] MEDS: hydrOXYzine PAMOATE 25 MG CAP PO PRN ×2 (08:09→13:12)
[2018-08-25] MEDS: ALBUTEROL NEBULIZED 2.5 MG/3 ML INHALATION SCH ×2 (09:22→19:05)
[2018-08-25 09:32] LABS: Calcium 9.6 mg/dL (8.4-10.2); Potassium 5.6 mmol/L (3.5-5.1)
[2018-08-25 09:34] LABS: Basophils % (A) 0 %; Eosinophils % (A) 0 %; HCT 40.1 % (39.0-53.0); HGB 12.7 gm/dL (13.0-17.5); Hypochromasia Slight; Lymphocytes # (A) 0.6 k/uL (1.0-4.8); Lymphocytes % (A) 8 %; MCH 28.1 pg (25.0-35.0); MCHC 31.6 g/dL (31.0-37.0); MCV 88.8 fL (80.0-100.0); Mean Platelet Volume 7.9; Monocytes # (A) 0.3 k/uL (0-1.0); Monocytes % (A) 4 %; Neutrophils # (A) 7.2 k/uL (1.3-7.7); Neutrophils % (A) 87 %; Platelet Count 437 k/uL (150-450); RBC 4.51 m/uL (4.30-5.90); RDW 14.2 % (11.5-15.5); WBC 8.3 k/uL (3.8-10.6)
[2018-08-25] MEDS: FLUTICASONE 50MCG/SPRAY NASAL 16GM EA NOSTRIL SCH (09:36)
--- NOTE | 2018-08-25 10:08 | P.PN ---
Subjective Progress Note Date: 08/25/18 This is a 73-year-old male who is status post stage I revision left total knee arthroplasty with placement of an antibiotic spacer. This is postoperative day #1 and patient is seen and evaluated at bedside with Dr. Naman Barahona. Patient states that his pain is well controlled and the pain is slightly less than before surgery. Patient denies any fever/chills, numbness, weakness, ting ling, abdominal pain, shortness of breath or chest pain. Objective - Vital Signs Vital signs: Vital Signs Temp 97.7 F 08/25/18 07:00 Pulse 60 08/25/18 09:35 Resp 16 08/25/18 07:00 BP 122/85 08/25/18 07:00 Pulse Ox 100 08/25/18 07:00 Intake & Output 08/24/18 08/25/18 08/25/18 18:59 06:59 18:59 Intake Total 1501 Output Total 200 575 300 Balance 1301 -575 -300 Intake: IV 1501 Output: Urine 575 300 Estimated Blood Loss 200 - Exam Vital signs are stable. Patient is in no acute distress and is alert and oriented 3. Calf is soft and nontender to palpation. Dressing is clean, dry, and intact. Patient has full foot and ankle motion without pain or difficulty. Neurovascular status and circulatory status are intact. - Labs CBC & Chem 7: 08/25/18 08:31 08/25/18 08:31 Labs: Abnormal Lab Results - Last 24 Hours (Table) 08/25/18 08/25/18 Range/Units 08:31 08:31 Hgb 12.7 L (13.0-17.5) gm/dL Lymphocytes # 0.6 L (1.0-4.8) k/uL Sodium 136 L (137-145) mmol/L Potassium 5.6 H (3.5-5.1) mmol/L BUN 50 H (9-20) mg/dL Creatinine 1.75 H (0.66-1.25) mg/dL Glucose 130 H (74-99) mg/dL Microbiology - Last 24 Hours (Table) 08/24/18 17:23 Gram Stain - Preliminary Knee - Left Wound Culture - Preliminary 08/24/18 17:23 Gram Stain - Preliminary Knee - Left Wound Culture - Preliminary 08/24/18 17:23 Anaerobic Culture - Preliminary Knee - Left 08/24/18 17:23 Anaerobic Culture - Preliminary Knee - Left Assessment and Plan Assessment: Status post stage I revision left total knee arthroplasty with placement of antibiotic spacer. (1) History of total knee arthroplasty Current Visit: No Status: Acute Code(s): Z96.659 - PRESENCE OF UNSPECIFIED ARTIFICIAL KNEE JOINT SNOMED Code(s): 8502093217460 (2) Infection of total left knee replacement Current Visit: Yes Status: Acute Code(s): T84.54XA - INFECT/INFLM REACTION DUE TO INTERNAL LEFT KNEE PROSTH, INIT SNOMED Code(s): 364891470 Plan: #1 Continue with routine postoperative care and pain control, leave dressing in place for ten days. #2 Anticoagulation with Lovenox. Dosing per internal medicine. #3 Physical therapy today. #4 Appreciate input from internal medicine and infectious disease. #5 Cultures are pending. Previous cultures are positive for group B strep. #6 Continue antibiotics. #7 Anticipate discharge within the next 48-72 hours.
--- NOTE | 2018-08-25 12:15 | P.PN ---
Progress Note - Text Progress Note Date: 08/25/18 Postoperative day # 1 status post a wound revision of left knee arthroplasty, under spinal anesthesia, and adductor canal catheter placed for postoperative analgesia, currently at ropivacaine 0.2% 8 mL per hour and continuous infusion, patient using oral pain medication for breakthrough pain. Assessment and plan= Acute postoperative pain, adductor canal catheter for pain control, pain is well controlled we'll continue the same management.
[2018-08-25 16:08] VITALS: BMI 26.7
--- NOTE | 2018-08-25 17:56 | PN ---
PROGRESS NOTE DATE OF SERVICE: 08/25/2018 This 73-year-old gentleman with a past medical history of multiple medical problems who had left total knee arthroplasty is being closely monitored. Patient had antibiotic spacer placement and revision, stage I revision. The patient also had was on tube feeds. Patient also was on Lovenox at home. No chest pain. No palpitations. No fever. The patient also had mild hyponatremia and hypokalemia. EXAM: Alert and oriented x3. The pulse is 59, blood pressure 99/61, respiration 14, temperature 97.7, pulse ox 98% on room air. HEENT: Conjunctivae normal. NECK: No jugular venous distention. CARDIOVASCULAR: S1, S2 muffled. RESPIRATION: Breath sounds diminished in the bases. No rhonchi. No crackles. Abdomen is soft, nontender. No mass palpable. LEGS: Status post left knee arthroplasty. NERVOUS SYSTEM: No focal deficits. LABS: WBC 8.2, hemoglobin 12.7, sodium 130, potassium 5.6, creatinine is 1.75. PAST MEDICAL HISTORY: Reviewed. REVIEW OF SYSTEMS: CARDIOVASCULAR: No angina. No palpitations. RESPIRATIONS: No cough. GI as mentioned earlier. : No dysuria. CENTRAL NERVOUS SYSTEM: No numbness, weakness. CURRENT MEDICATIONS ARE: 1. [place] 5 mg q.6h p.r.n. 2. Ventolin. 3. Zyloprim 100 mg daily. 4. Dulcolax. 5. Valium 2.5 q8h p.r.n. 6. Lovenox 120 mg subcu q.h.s. 7. Flonase. 8. Neurontin 100 mg p.o. b.i.d. 9. Dilaudid p.r.n. 10.Restoril. 11.Lactated Ringer's. 12.Synthroid. 13.Claritin. 14.Milk of magnesia. 15.Toprol-XL. 16.Zofran. 17.Protonix. 18.Fleets. ASSESSMENT: 1. Status post left total knee arthroplasty stage I revision with placement antibiotic spacer for infected left total knee arthroplasty. 2. History of deep vein thrombosis. 3. Increased creatinine with possibly chronic kidney stage III. 4. Hyponatremia. 5. Mild hyperkalemia. 6. Increased random blood sugar. 7. History of deep vein thrombosis. 8. Gastroesophageal reflux disease. 9. On Lovenox. 10.Hypertension. 11.History of pulmonary embolism. 12.History of sleep apnea. 13.History of anemia. 14.History of throat cancer, status post chemoradiation. 15.Status post PEG tube feeds. 16.History of degenerative joint disease. 17.Remote history of nicotine dependence. RECOMMENDATIONS AND DISCUSSION: Recommend to continue current medications, management and symptomatic treatment. Otherwise, at this time, I recommend, monitor the creatinine closely. Otherwise, low- potassium diet. Repeat labs tomorrow morning and I would also recommend to continue the Lovenox. Watch for any bleeding and IV fluids to be continued at least tomorrow morning. Further recommendations to follow. We will follow the patient closely with you. Thank you Dr. Barhaona. OLIVE / MEREDITH: [id number] /
[2018-08-25] MEDS: SENNOSIDES-DOCUSATE SODIUM 1 EACH TAB PO SCH (22:36)
[2018-08-25] MEDS: ENOXAPARIN 120 MG/0.8 ML SYRINGE SQ SCH (22:36)
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
[2018-08-26] MEDS: LACTATED RINGERS 1,000 ML IV SCH (05:40)
[2018-08-26] MEDS: LEVOTHYROXINE 25 MCG TAB PO SCH (06:05)
[2018-08-26] MEDS: PANTOPRAZOLE 40 MG TABLET PO SCH (07:06)
[2018-08-26] MEDS: HYDROcodone/APAP 5-325MG 1 EACH TAB PO PRN ×3 (07:06→20:15)
[2018-08-26] MEDS: ALBUTEROL NEBULIZED 2.5 MG/3 ML INHALATION SCH ×2 (07:09→19:57)
[2018-08-26 08:21] LABS: Basophils % (A) 1 %; Eosinophils # (A) 0.2 k/uL (0-0.7); Eosinophils % (A) 4 %; HCT 37.9 % (39.0-53.0); Lymphocytes # (A) 1.4 k/uL (1.0-4.8); Lymphocytes % (A) 22 %; MCH 28.2 pg (25.0-35.0); MCHC 31.8 g/dL (31.0-37.0); MCV 88.7 fL (80.0-100.0); Mean Platelet Volume 7.4; Monocytes # (A) 0.3 k/uL (0-1.0); Monocytes % (A) 6 %; Neutrophils # (A) 4.1 k/uL (1.3-7.7); Neutrophils % (A) 67 %; Platelet Count 512 k/uL (150-450); RBC 4.28 m/uL (4.30-5.90); RDW 14.4 % (11.5-15.5); WBC 6.1 k/uL (3.8-10.6)
--- NOTE | 2018-08-26 08:47 | P.PN ---
Subjective Progress Note Date: 08/26/18 This is a 73-year-old male who is status post stage I revision left total knee arthroplasty with placement of an antibiotic spacer. This is postoperative day #2 and patient is seen and evaluated at bedside. Patient does report soreness in the left knee today, but states that he has been up and walking with physical therapy. Patient denies any fever/chills, numbness, weakness, tingling, abdominal pain, shortness of breath or chest pain. Objective - Vital Signs Vital signs: Vital Signs Temp 98.0 F 08/26/18 07:00 Pulse 76 08/26/18 07:23 Resp 14 08/26/18 07:00 BP 99/62 08/26/18 07:00 Pulse Ox 97 08/26/18 07:00 Intake & Output 08/25/18 08/26/18 08/26/18 18:59 06:59 18:59 Intake Total 1300 855 Output Total 850 1425 Balance 450 -570 Weight 89.358 kg Intake: Oral 1300 Tube Feeding 855 Output: Urine 850 1425 Other: Voiding Method Urinal # Voids 2 - Exam Vital signs are stable. Patient is in no acute distress and is alert and oriented 3. Calf is soft and nontender to palpation. Dressing is clean, dry, and intact. Patient has full foot and ankle motion without pain or difficulty. Neurovascular status and circulatory status are intact. - Labs CBC & Chem 7: 08/26/18 07:28 08/26/18 07:28 Labs: Abnormal Lab Results - Last 24 Hours (Table) 08/25/18 08/25/18 08/26/18 Range/Units 08:31 08:31 07:28 RBC 4.28 L (4.30-5.90) m/uL Hgb 12.7 L 12.0 L (13.0-17.5) gm/dL Hct 37.9 L (39.0-53.0) % Plt Count 512 H (150-450) k/uL Lymphocytes # 0.6 L (1.0-4.8) k/uL Sodium 136 L (137-145) mmol/L Potassium 5.6 H (3.5-5.1) mmol/L BUN 50 H (9-20) mg/dL Creatinine 1.75 H (0.66-1.25) mg/dL Glucose 130 H (74-99) mg/dL 08/26/18 Range/Units 07:28 RBC (4.30-5.90) m/uL Hgb (13.0-17.5) gm/dL Hct (39.0-53.0) % Plt Count (150-450) k/uL Lymphocytes # (1.0-4.8) k/uL Sodium (137-145) mmol/L Potassium (3.5-5.1) mmol/L BUN 45 H (9-20) mg/dL Creatinine 1.54 H (0.66-1.25) mg/dL Glucose 110 H (74-99) mg/dL Microbiology - Last 24 Hours (Table) 08/24/18 17:23 Gram Stain - Preliminary Knee - Left Wound Culture - Preliminary Strep agalactiae - (group b) 08/24/18 17:23 Gram Stain - Preliminary Knee - Left Wound Culture - Preliminary Strep agalactiae - (group b) Assessment and Plan Assessment: Status post stage I revision left total knee arthroplasty with placement of antibiotic spacer. (1) History of total knee arthroplasty Current Visit: No Status: Acute Code(s): Z96.659 - PRESENCE OF UNSPECIFIED ARTIFICIAL KNEE JOINT SNOMED Code(s): 6159112532465 (2) Infection of total left knee replacement Current Visit: Yes Status: Acute Code(s): T84.54XA - INFECT/INFLM REACTION DUE TO INTERNAL LEFT KNEE PROSTH, INIT SNOMED Code(s): 558647415 Plan: #1 Continue with routine postoperative care and pain control, leave dressing in place for ten days. #2 Anticoagulation with Lovenox. Dosing per internal medicine. #3 Physical therapy today. #4 Appreciate input from internal medicine and infectious disease. #5 Preliminary cultures are positive for group B strep. #6 Continue antibiotics per infectious disease. Patient is awaiting PICC line placement. #7 Anticipate discharge within the next 48-72 hours.
[2018-08-26] MEDS: FLUTICASONE 50MCG/SPRAY NASAL 16GM EA NOSTRIL SCH (08:51)
[2018-08-26] MEDS: LORATADINE 10 MG TAB PO SCH (08:51)
[2018-08-26] MEDS: ALLOPURINOL 100 MG TAB PO SCH (08:52)
[2018-08-26] MEDS: GABAPENTIN 100 MG CAP PO SCH ×2 (08:52→20:15)
--- NOTE | 2018-08-26 10:53 | P.PN ---
Progress Note - Text Progress Note Date: 08/26/18 Pt w/ mild to moderate pain. Pain improved with breakthrough medications. Catheter site clean and dry. Adductor canal catheter @ 8 ml/hr POD# 2 s/p Left adductor canal catheter for TKA. - doing well
[2018-08-26] MEDS: METOPROLOL SUCCINATE (ER) 25 MG TAB.ER.24H PO SCH (13:41)
[2018-08-26] MEDS: SODIUM CHLORIDE 0.9% 1,000 ML IV SCH (14:00)
[2018-08-26] MEDS: ENOXAPARIN 120 MG/0.8 ML SYRINGE SQ SCH (15:47)
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
[2018-08-26 18:43] LABS: Appearance,Urine Clear (Clear); Bilirubin,Urine Negative (Negative); Blood,Urine Negative (Negative); Color,Urine Light Yellow; Glucose,Urine (UA) Negative (Negative); Ketones,Urine Negative (Negative); Leukocyte Esterase,Urine Negative (Negative); Nitrite,Urine Negative (Negative); Protein,Urine Negative (Negative); Specific Gravity,Urine 1.007 (1.001-1.035); Urobilinogen,Urine <2.0 mg/dL (<2.0)
--- NOTE | 2018-08-26 19:20 | PN ---
PROGRESS NOTE DATE OF SERVICE: 08/26/2018 This 73-year-old gentleman who was admitted after left total knee arthroplasty underwent staged joint revision with antibiotic spacer. Infectious Disease is planning outpatient antibiotics and PICC line also. No chest pain. No palpitations. No fever. On exam, alert and oriented x3. Pulse is 70, blood pressure 128/80, respirations 16, temperature 98.6, pulse ox 97% on room air. HEENT: Conjunctivae normal. NECK: No jugular venous distention. CARDIOVASCULAR SYSTEM: S1, S2 muffled. RESPIRATORY SYSTEM: Breath sounds diminished at the bases. No rhonchi. No crackles. ABDOMEN: Soft, non-tender. LEGS: Status post surgery. NERVOUS SYSTEM: No focal deficit. LABS: WBC 6.1, hemoglobin 12. Creatinine is 1.54. ASSESSMENT: 1. Status post left total knee joint arthroplasty, stage I revision, with placement of antibiotic spacer for infected left total knee arthroplasty. 2. History of deep vein thrombosis. 3. Increased creatinine with possibly chronic kidney disease, stage III. 4. Hyponatremia. 5. Mild hyperkalemia. 6. Increased random blood sugar. 7. History of deep vein thrombosis. 8. Gastroesophageal reflux disease. 9. On Lovenox at home. 10.Hypertension. 11.History of pulmonary embolus. 12.History of sleep apnea. 13.History of anemia. 14.History of throat cancer, status post chemoradiation. 15.Status post PEG tube feeds. 16.History of degenerative joint disease. 17.Remote history of nicotine dependence. RECOMMENDATIONS AND DISCUSSION: I recommend to continue current medications, continue with the monitoring, symptomatic treatment. Continue with antibiotics per Infectious Disease. The creatinine is stable at 1.54 at this time. I would recommend continued monitoring in the outpatient setting. Otherwise, PEG feeds as before. Aspiration precautions. The rest of the medications and recommendations per Orthopedic Surgery. Further recommendations to follow. MMODL / IJN: [id number] /
[2018-08-26] MEDS: SENNOSIDES-DOCUSATE SODIUM 1 EACH TAB PO SCH (20:15)
--- NOTE | 2018-08-26 20:32 | US ---
EXAMINATION TYPE: US kidneys/renal and bladder DATE OF EXAM: 08/26/2018 COMPARISON: NONE CLINICAL HISTORY: scar. EXAM MEASUREMENTS: Right Kidney: 13.9 x 8.0 x 7.4 cm Left Kidney: 16.0 x 7.3 x 5.5 cm Right Kidney: Multiple cysts seen largest measures 11.4 x 10.4 x 10.6cm. Very little renal cortex vis ualized. Left Kidney: Multiple cysts seen largest 11.6 x 8.3 x 9.0cm. Bladder: Anechoic Bilateral Jets seen: Yes IMPRESSION: There is numerous bilateral renal cortical cysts consistent with adult polycystic kidney disease. No evidence of solid renal mass. Bilateral ureteral jets are seen in the urinary bladder and consistent with no obstruction.
--- NOTE | 2018-08-26 23:51 | P.PN ---
Subjective Progress Note Date: 08/26/18 72 -year-old male presents to Hospital for evaluation of the sudden onset of pain to his left knee. This pleasant gentleman relates that he underwent a total knee arthroplasty approximately [address] Gatica. 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 The patient was treated with a course of radiation therapy and chemotherapy at an outside institution. Apparently patient developed significant side effects of radiation in that he could not swallow and constantly PEG tube was placed for him to receive his nutrition. The PEG tube remains in place and he continues to use tube feeds at this time, and does relate that he does also eat. He denies any difficulty with pain and swelling at this point in time. The patient relates surely before the knee became painful he was doing some work in the yard. He does not recall kneeling and had no acute injury to the knee. He's had no difficulty with sores or ulcerations to the left foot or leg. He complains of no discomforts to the leg except at the knee where there was a sudden onset of pain before his presentation. He does relate when the pain started he was seen by his orthopedic surgeons and aspiration was performed. Group B strep was isolated and the patient has been treated with a protracted course of intravenous antibiotic therapy. There was significant improvement of the patient's pain in the inflammatory parameters. He was consequently sent back to orthopedics for further evaluation. Aspiration of the joint occurred in there was evidence of recurrence of the group B strep a nd constantly he's been broadened to Hospital and the joint has been removed and antibiotic spacer was placed is a step 1 exchange. Repeat surgical cultures are in process but a recent outpatient culture did have a group B strep. Patient has some postoperative pain but is not as severe as last time. 08/26/2018 the patient is feeling slowly better today. Pain is better controlled. He has tolerated the stage I revision well for the infection of the left total knee arthroplasty. Group B strep was isolated.he is tolerating his tube feeds well. Objective - Vital Signs Vital signs: Vital Signs Temp 98.0 F 08/26/18 19:25 Pulse 74 08/26/18 20:06 Resp 16 08/26/18 19:25 BP 120/78 08/26/18 19:25 Pulse Ox 96 08/26/18 19:57 Intake & Output 08/26/18 08/26/18 08/27/18 06:59 18:59 06:59 Intake Total 855 1390 120 Output Total 1425 400 900 Balance -570 990 -780 Weight 89.358 kg Intake: Oral 940 120 Tube Feeding 855 450 Output: Urine 1425 400 900 Other: Voiding Method Urinal - Exam Pleasant 73-year-old male, has some complaints of pain to the left knee area HEENT: Anicteric conjunctiva are pink and moist nasal mucosa grossly intact without significant lesions, there is no thrush. no visualized mass in the oral cavity no thrush Neck: The neck is supple without significant lymphadenopathy or thyromegaly. no palpable mass Lungs: medical bilateral air entry with few expiratory wheezes without yuriy bronchial sounds with dullness or egophony Heart: Regular rate and rhythm with an audible S1-S2, no S3 no S4. There is no significant murmur click or rub, PMI was nondisplaced. Abdomen: Positive bowel sounds soft and nontender without palpable masses or organomegaly. There was no guarding or rebound.PEG tube site is intact Extremities: The upper extremities have excellent pulses they are symmetric, no significant petechiae or telangiectasia. No splinter hemorrhages were noted. the right lower extremities without acute abnormalities. Silver foam dressing is in place over the incision is intact. The foot is evaluated is evidence of adequate warmth, adequate capillary refill, no open ulcerations or lesions. The foot is not cool and no necrotic ulcers are seen Neuro: Awake alert oriented to person place and time. There are no acute new gross focal sensory motor deficits. - Labs CBC & Chem 7: 08/26/18 07:28 08/26/18 07:28 Labs: Abnormal Lab Results - Last 24 Hours (Table) 08/26/18 08/26/18 Range/Units 07:28 07:28 RBC 4.28 L (4.30-5.90) m/uL Hgb 12.0 L (13.0-17.5) gm/dL Hct 37.9 L (39.0-53.0) % Plt Count 512 H (150-450) k/uL BUN 45 H (9-20) mg/dL Creatinine 1.54 H (0.66-1.25) mg/dL Glucose 110 H (74-99) mg/dL Microbiology - Last 24 Hours (Table) 08/24/18 17:23 Gram Stain - Final Knee - Left Wound Culture - Final Strep agalactiae - (group b) 08/24/18 17:23 Gram Stain - Final Knee - Left Wound Culture - Final Strep agalactiae - (group b) Laboratory Results WBC 6.1 k/uL (3.8-10.6) 08/26/18 07:28 RBC 4.28 m/uL (4.30-5.90) L 08/26/18 07:28 Hgb 12.0 gm/dL (13.0-17.5) L 08/26/18 07:28 Hct 37.9 % (39.0-53.0) L 08/26/18 07:28 MCV 88.7 fL (80.0-100.0) 08/26/18 07:28 MCH 28.2 pg (25.0-35.0) 08/26/18 07:28 MCHC 31.8 g/dL (31.0-37.0) 08/26/18 07:28 RDW 14.4 % (11.5-15.5) 08/26/18 07:28 Plt Count 512 k/uL (150-450) H 08/26/18 07:28 Neutrophils % 67 % 08/26/18 07:28 Lymphocytes % 22 % 08/26/18 07:28 Monocytes % 6 % 08/26/18 07:28 Eosinophils % 4 % 08/26/18 07:28 Basophils % 1 % 08/26/18 07:28 Neutrophils # 4.1 k/uL (1.3-7.7) 08/26/18 07:28 Lymphocytes # 1.4 k/uL (1.0-4.8) 08/26/18 07:28 Monocytes # 0.3 k/uL (0-1.0) 08/26/18 07:28 Eosinophils # 0.2 k/uL (0-0.7) 08/26/18 07:28 Basophils # 0.0 k/uL (0-0.2) 08/26/18 07:28 Hypochromasia Slight 08/25/18 08:31 Sodium 138 mmol/L (137-145) 08/26/18 07:28 Potassium 5.0 mmol/L (3.5-5.1) 08/26/18 07:28 Chloride 104 mmol/L (98-107) 08/26/18 07:28 Carbon Dioxide 25 mmol/L (22-30) 08/26/18 07:28 Anion Gap 9 mmol/L 08/26/18 07:28 BUN 45 mg/dL (9-20) H 08/26/18 07:28 Creatinine 1.54 mg/dL (0.66-1.25) H 08/26/18 07:28 Est GFR (CKD-EPI)AfAm 51 (>60 ml/min/1.73 sqM) 08/26/18 07:28 Est GFR (CKD-EPI)NonAf 44 (>60 ml/min/1.73 sqM) 08/26/18 07:28 Glucose 110 mg/dL (74-99) H 08/26/18 07:28 Calcium 9.0 mg/dL (8.4-10.2) 08/26/18 07:28 Urine Color Light Yellow 08/26/18 18:32 Urine Appearance Clear (Clear) 08/26/18 18:32 Urine pH 6.0 (5.0-8.0) 08/26/18 18:32 Ur Specific [place] 1.007 (1.001-1.035) 08/26/18 18:32 Urine Protein Negative (Negative) 08/26/18 18:32 Urine Glucose (UA) Negative (Negative) 08/26/18 18:32 Urine Ketones Negative (Negative) 08/26/18 18:32 Urine Blood Negative (Negative) 08/26/18 18:32 Urine Nitrite Negative (Negative) 08/26/18 18:32 Urine Bilirubin Negative (Negative) 08/26/18 18:32 Urine Urobilinogen <2.0 mg/dL (<2.0) 08/26/18 18:32 Ur Leukocyte Esterase Negative (Negative) 08/26/18 18:32 Microbiology 08/24/18 17:23 Knee - Left Gram Stain - Final 08/24/18 17:23 Knee - Left Wound Culture - Final Strep agalactiae - (group b) 08/24/18 17:23 Knee - Left Gram Stain - Final 08/24/18 17:23 Knee - Left Wound Culture - Final Strep agalactiae - (group b) 08/24/18 17:23 Knee - Left Anaerobic Culture - Preliminary 08/24/18 17:23 Knee - Left Anaerobic Culture - Preliminary Assessment and Plan (1) Infection of total left knee replacement Narrative/Plan: 73-year-old male who has a history of tonsillar cancer in does receive the majority of his calories via tube feed has had difficulties with his left total knee arthroplasty. He underwent debridement earlier this year and a protracted course of antibiotic therapy. Despite this he has had ongoing difficulties with knee and has now been taken the operating room for further debridement. The patient has had removal of the implantation and antibiotic spacer has been placed. Outpatient culture with group B streptococcus. Rocephin 2 g a day is being initiated. Will require outpatient injuries antibiotic therapy which I believe will be done in the home setting. Hopefully with removal of the pr osthesis debridement and antibiotic spacer placement will have resolution of this resistant infection. He'll also need to ensure adequate protein intake via his tube feeds. 08/26/2018 patient started to recover from his surgery and that this pain is improved. He is tolerating his tube feeds without difficulty. IV access is requested with the PICC line but requires nephrology evaluation. Planning at least for 2 days of Rocephin in the outpatient setting for the group B streptococcal infection of the total knee arthroplasty. Current Visit: Yes Status: Acute Code(s): T84.54XA - INFECT/INFLM REACTION DUE TO INTERNAL LEFT KNEE PROSTH, INIT SNOMED Code(s): 240269696 (2) Group B streptococcal infection Current Visit: Yes Status: Acute Code(s): A49.1 - STREPTOCOCCAL INFECTION, UNSPECIFIED SITE SNOMED Code(s): 090745055
[2018-08-27] MEDS: SODIUM CHLORIDE 0.9% 1,000 ML IV SCH (03:49)
[2018-08-27 04:03] VITALS: RESP 16
[2018-08-27] MEDS: LACTATED RINGERS 1,000 ML IV SCH (04:37)
[2018-08-27] MEDS: HYDROcodone/APAP 5-325MG 1 EACH TAB PO PRN ×2 (05:19→11:17)
[2018-08-27] MEDS: LEVOTHYROXINE 25 MCG TAB PO SCH (05:24)
[2018-08-27 08:20] LABS: Basophils % (A) 0 %; Eosinophils # (A) 0.4 k/uL (0-0.7); Eosinophils % (A) 6 %; HCT 36.2 % (39.0-53.0); HGB 11.5 gm/dL (13.0-17.5); Hypochromasia Slight; Lymphocytes # (A) 0.4 k/uL (1.0-4.8); Lymphocytes % (A) 6 %; MCH 28.1 pg (25.0-35.0); MCHC 31.7 g/dL (31.0-37.0); MCV 88.6 fL (80.0-100.0); Mean Platelet Volume 7.6; Monocytes # (A) 0.4 k/uL (0-1.0); Monocytes % (A) 6 %; Neutrophils # (A) 5.3 k/uL (1.3-7.7); Neutrophils % (A) 80 %; Platelet Count 545 k/uL (150-450); RBC 4.09 m/uL (4.30-5.90); RDW 14.7 % (11.5-15.5); WBC 6.6 k/uL (3.8-10.6)
[2018-08-27 08:30] LABS: Calcium 8.8 mg/dL (8.4-10.2); Magnesium 1.9 mg/dL (1.6-2.3); Potassium 5.4 mmol/L (3.5-5.1)
[2018-08-27] MEDS: ALBUTEROL NEBULIZED 2.5 MG/3 ML INHALATION SCH (08:33)
--- NOTE | 2018-08-27 08:33 | P.PN ---
Subjective Patient is seen in follow-up for acute kidney injury on chronic kidney disease. Patient is chronic kidney disease stage III with baseline creatinine in the range of 1.3-1.5. Creatinine was down to 1.54 as of yesterday. Patient underwent revision of left total knee arthroplasty with antibiotic spacer placement on August 24. Patient receives tube feeding at night. He is also maintained on normal saline at 65 mL an hour. Denies chest pain or shortness of breath. No vomiting or diarrhea. Urine output is good. Vital signs are stable. General: The patient appeared well nourished and normally developed. HEENT: Head exam is unremarkable. Neck is without jugular venous distension. LUNGS: Lungs are clear to auscultation and percussion. Breath sounds decreased. HEART: Rate and Rhythm are regular. First and second heart sounds normal. No mu rmurs, rubs or gallops. ABDOMEN: Abdominal exam reveals normal bowel sounds. Non-tender and non-dis tended. No evidence of peritonitis. EXTREMITITES: No clubbing, cyanosis, or edema. Objective - Vital Signs Vital signs: Vital Signs Temp 97.9 F 08/27/18 07:00 Pulse 77 08/27/18 07:00 Resp 16 08/27/18 07:00 BP 117/77 08/27/18 07:00 Pulse Ox 96 08/27/18 07:00 Intake & Output 08/26/18 08/27/18 08/27/18 18:59 06:59 18:59 Intake Total 1390 1270 Output Total 400 3650 Balance 990 -2380 Weight 89.358 kg 87.5 kg Intake: Intake, IV Titration 390 Amount Sodium Chloride 0.9% 1, 390 000 ml @ 65 mls/hr IV . [id number] [facility] Rx#:[id number] Oral 940 140 Tube Feeding 450 740 Output: Urine 400 3650 - Labs CBC & Chem 7: 08/27/18 07:25 08/27/18 07:25 Labs: Abnormal Lab Results - Last 24 Hours (Table) 08/26/18 08/27/18 08/27/18 Range/Units 07: 07:25 07:25 RBC 4.09 L (4.30-5.90) m/uL Hgb 11.5 L (13.0-17.5) gm/dL Hct 36.2 L (39.0-53.0) % Plt Count 545 H (150-450) k/uL Lymphocytes # 0.4 L (1.0-4.8) k/uL Potassium 5.4 H (3.5-5.1) mmol/L BUN 45 H 35 H (9-20) mg/dL Creatinine 1.54 H 1.38 H (0.66-1.25) mg/dL Glucose 110 H (74-99) mg/dL Microbiology - Last 24 Hours (Table) 08/24/18 17:23 Anaerobic Culture - Preliminary Knee - Left 08/24/18 17:23 Anaerobic Culture - Preliminary Knee - Left 08/24/18 17:23 Gram Stain - Final Knee - Left Wound Culture - Final Strep agalactiae - (group b) 08/24/18 17:23 Gram Stain - Final Knee - Left Wound Culture - Final Strep agalactiae - (group b) Assessment and Plan Plan: Assessment: 1. Acute kidney injury mostly prerenal improved with IV hydration. Creatinine was 1.75 on admission and down to 1.54 as of yesterday. 2. Chronic kidney disease stage III secondary to nephrosclerosis as well as polycystic kidney disease with baseline creatinine in the range of 1.3-1.5. Renal ultrasound revealed bilateral large sized kidneys with numerous cysts. UA is benign. 3. History of throat cancer status post chemotherapy and radiation. 4. Status post PEG tube placement. Patient receives PEG tube feedings every night. 5. Hyperkalemia secondary to acute kidney injury. Better. No evidence of hyperglycemia or metabolic acidosis. 6. Status post revision of left total knee arthroplasty with antibiotic spacer placement on August 24. Plan: Hep-Lock IV fluids. Continue with PEG tube feedings. Avoid nephrotoxins. Continue to monitor renal function and urine output. Avoid Fleet enemas due to his for acute phosphate nephropathy. Stable to be discharged home from nephrology standpoint. Follow up outpatient in the next 2 weeks.
[2018-08-27] MEDS: GABAPENTIN 100 MG CAP PO SCH (08:50)
[2018-08-27] MEDS: METOPROLOL SUCCINATE (ER) 25 MG TAB.ER.24H PO SCH (08:50)
[2018-08-27] MEDS: LORATADINE 10 MG TAB PO SCH (08:50)
[2018-08-27] MEDS: PANTOPRAZOLE 40 MG TABLET PO SCH (08:51)
[2018-08-27] MEDS: ALLOPURINOL 100 MG TAB PO SCH (08:51)
--- NOTE | 2018-08-27 08:55 | P.DS ---
Providers Date of admission: 08/24/18 15:01 Expected date of discharge: 08/27/18 Attending physician: Naman Barahona Consults: 08/24/18 14:16 Consult Physician Routine Consulting Provider: Priti Marx Consult Reason/Comments: medical management and anticoagulation Do you want consulting provider notified?: Yes 08/25/18 08:38 Consult Physician Routine Consulting Provider: Royce Ramey Consult Reason/Comments: Infected left total knee. Do you want consulting provider notified?: Yes 08/26/18 11:39 Consult Physician Routine Consulting Provider: Ceasar Sifuentes Consult Reason/Comments: reccommendations for picc line placement r/t GFR Do you want consulting provider notified?: Yes Primary care physician: Stated None - Discharge Diagnosis(es) (1) Group B streptococcal infection Current Visit: Yes Status: Acute (2) Infection of total left knee replacement Current Visit: Yes Status: Acute (3) History of total knee arthroplasty Current Visit: No Status: Acute (4) Squamous cell carcinoma of tonsil Current Visit: No Status: Acute Hospital Course: This is a pleasant 73-year-old male last seen in our office with complaints and ongoing infection to his left knee. He is status post left total knee arthroplasty by Dr. Gatica 5 years ago. After discussion and consideration, the patient elected to proceed with a stage I revision left total knee arthroplasty with placement of antibiotic spacer. Patient was seen preoperatively, and medically cleared for surgery by his primary care physician. Patient was admitted to [facility] underwent a stage I revision left total knee arthroplasty with placement of antibiotic spacer on 08/24/[address] Naman Barahona. The procedure was performed without complications or sequelae. The patient is seen and evaluated at bedside today. Pain is well- controlled. Patient has no new complaints today and denies any fevers, chills, nausea, vomiting, or shortness of breath. Vital signs are stable. Dressing is clean dry and intact. Incision looks fine with no erythema or active drainage. Calf is soft and nontender. Patient has full foot and ankle motion without difficulty. Patient's left lower extremity is neurovascularly intact. The patient will have a PICC line placed today and will be followed closely with infectious disease for antibiotic management. The patient is orthopedically stable for discharge today. Pertinent Studies: Laboratory Tests 08/27/18 08/27/18 07:25 07:25 WBC 6.6 RBC 4.09 L Hgb 11.5 L Hct 36.2 L Plt Count 545 H Potassium 5.4 H BUN 35 H Creatinine 1.38 H Patient Condition at Discharge: Stable Plan - Discharge Summary Discharge Rx Participant: No New Discharge Prescriptions: New HYDROcodone/APAP 5-325MG [[place] 5-325] 1 - 2 tab PO Q6HR PRN #56 tab PRN Reason: Pain Sennosides [Senokot] 1 tab PO BID #60 tablet cefTRIAXone [Rocephin] 2,000 mg IVPB Q24HR #42 vial No Action Omeprazole [PriLOSEC] 20 mg PO BID Allopurinol [Zyloprim] 100 mg PO DAILY Metaxalone [Skelaxin] 800 mg PO TID Aspirin [Adult Low Dose Aspirin EC] 81 mg PO HS Fluticasone Nasal [place] [Flonase Nasal [place]] 2 spr EA NOSTRIL DAILY Gabapentin [Neurontin] 100 mg PO BID Enoxaparin [Lovenox] 120 mg SQ HS Albuterol Nebulized [Ventolin Nebulized] 2.5 mg INHALATION BID Meloxicam [Mobic] 15 mg PO DAILY Ferrous Sulfate [Feosol] 325 mg PO DAILY Hydrocodone/Acetaminophen [[place] 7.5-325] 1 tab PO Q4-6H PRN PRN Reason: Pain Levothyroxine Sodium [Synthroid] 25 mcg PO DAILY Loratadine 10 mg PO DAILY Metoprolol Succinate (ER) [Toprol Xl] 25 mg PO DAILY Discharge Medication List Allopurinol [Zyloprim] 100 mg PO DAILY 07/27/13 [History] Metaxalone [Skelaxin] 800 mg PO TID 07/27/13 [History] Omeprazole [PriLOSEC] 20 mg PO BID 07/27/13 [History] Aspirin [Adult Low Dose Aspirin EC] 81 mg PO HS 06/26/17 [History] Fluticasone Nasal [place] [Flonase Nasal [place]] 2 spr EA NOSTRIL DAILY 07/30/17 [History] Gabapentin [Neurontin] 100 mg PO BID 12/17/17 [History] Enoxaparin [Lovenox] 120 mg SQ HS 01/19/18 [History] Albuterol Nebulized [Ventolin Nebulized] 2.5 mg INHALATION BID 05/24/18 [History] Meloxicam [Mobic] 15 mg PO DAILY 05/24/18 [History] Ferrous Sulfate [Feosol] 325 mg PO DAILY 08/19/18 [History] Hydrocodone/Acetaminophen [[place] 7.5-325] 1 tab PO Q4-6H PRN 08/19/18 [History] Levothyroxine Sodium [Synthroid] 25 mcg PO DAILY 08/19/18 [History] Loratadine 10 mg PO DAILY 08/19/18 [History] Metoprolol Succinate (ER) [Toprol Xl] 25 mg PO DAILY 08/19/18 [History] HYDROcodone/APAP 5-325MG [[place] 5-325] 1 - 2 tab PO Q6HR PRN #56 tab 08/25/18 [Rx] Sennosides [Senokot] 1 tab PO BID #60 tablet 08/25/18 [Rx] cefTRIAXone [Rocephin] 2,000 mg IVPB Q24HR #42 vial 08/26/18 [Rx] Follow up Appointment(s)/Referral(s): [facility], [NON-STAFF] - As Needed [facility], [REFERRING] - As Needed Naman Barahona DO [Doctor of Osteopathic Medicine] - 2 Weeks Ambulatory/Diagnostic Orders: Basic Metabolic Panel [LAB.AMB] Location: None Selected Complete Blood Count w/diff [LAB.AMB] Location: None Selected Miscellaneous Lab Order [LAB.AMB] Location: None Selected Activity/Diet/Wound Care/Special Instructions: Weightbearing as tolerated with a walker. Leave dressing intact. May be removed by home care nurse or by patient in 10 days. May shower with dressing on. Please follow up with [facility] and call with any questions or concerns, . Discharge Disposition: HOME WITH HOME HEALTH SERVICES
[2018-08-27] MEDS ORDERED: LIDOCAINE 1% INJ 10MG/ML (20 ML MDV) ONE (10:04)
[2018-08-27] MEDS: FLUTICASONE 50MCG/SPRAY NASAL 16GM EA NOSTRIL SCH (10:20)
[2018-08-27 15:14] VITALS: BP 116/77; PULSE 72; TEMP 98.1
--- NOTE | 2018-08-27 16:15 | IR ---
EXAMINATION TYPE: IR cvc insert >=5 years DATE OF EXAM: 08/27/2018 COMPARISON: NONE CLINICAL HISTORY: Infection Needs long-term intravenous access for antibiotics. PROCEDURE: After informed consent, the skin overlying the right basilic vein was localized with ultrasound and n oted to be compressible and patent. An ultrasound image was obtained and submitted on the patient's chart. The overlying skin was prepped and draped and Lidocaine was used for local anesthesia. A ski n flavia was made with a scalpel. Access was gained to the vein under ultrasound guidance with a 21 ga uge needle and a 0.018 inch wire was advanced. Access site was dilated with Peel-Away sheath and cat heter tailored to the appropriate length and advanced such that the distal tip is at the cavoatrial j unction. Spot image was obtained verifying placement. Catheter was fixed to the skin and a sterile dressing was placed following hemostasis. Catheter was aspirated and flushed with saline. Patient w as discharged in stable condition without complication. Maximal barrier technique is utilized. Ultra sound image is documented on the chart. Ultrasound used with sterile technique. Fluoro time and fluoroscopic images submitted to document procedure: 0.5 minutes fluoroscopy, 133 int raoperative images document the procedure IMPRESSION: STATUS POST ULTRASOUND AND FLUOROSCOPIC GUIDED PICC LINE PLACEMENT, READY FOR USE. THIS PROCEDURE WAS PERFORMED BY THE UNDERSIGNED.
== END 2018-08-27 17:09 | disposition home health service (06) | DRG 467 ==
LOC: 2ORMAIN 15:01 → 4SSUR 18:10
PROVIDERS: ADMIT Orthopaedic Surgery; ATTEND Orthopaedic Surgery
PROC: 0SRD0J9 Replacement of Left Knee Joint with Synthetic Substitute, Cemented, Open Approach (ICD-10-PCS; 2018-08-24)
PROC: 0SPD0JZ Removal of Synthetic Substitute from Left Knee Joint, Open Approach (ICD-10-PCS; principal; 2018-08-24 16:15)
PROC: 02HV33Z Insertion of Infusion Device into Superior Vena Cava, Percutaneous Approach (ICD-10-PCS; 2018-08-27)
DX: T84.54XA Infection and inflammatory reaction due to internal left knee prosthesis, initial encounter (principal); N17.9 Acute kidney failure, unspecified; Q61.3 Polycystic kidney, unspecified; E87.1 Hypo-osmolality and hyponatremia; E87.5 Hyperkalemia; N18.3 Chronic kidney disease, stage 3 (moderate); J43.9 Emphysema, unspecified; K21.9 Gastro-esophageal reflux disease without esophagitis; I12.9 Hypertensive chronic kidney disease with stage 1 through stage 4 chronic kidney disease, or unspecified chronic kidney disease; E03.9 Hypothyroidism, unspecified; E87.6 Hypokalemia; G47.30 Sleep apnea, unspecified; G89.18 Other acute postprocedural pain; M10.9 Gout, unspecified; K44.9 Diaphragmatic hernia without obstruction or gangrene; B95.1 Streptococcus, group B, as the cause of diseases classified elsewhere; K40.90 Unilateral inguinal hernia, without obstruction or gangrene, not specified as recurrent; H91.90 Unspecified hearing loss, unspecified ear; H54.7 Unspecified visual loss; Z93.1 Gastrostomy status; Z92.3 Personal history of irradiation; Z92.21 Personal history of antineoplastic chemotherapy; Z79.890 Hormone replacement therapy; Z79.01 Long term (current) use of anticoagulants; Z79.82 Long term (current) use of aspirin; Z87.891 Personal history of nicotine dependence; Z86.711 Personal history of pulmonary embolism; Z86.718 Personal history of other venous thrombosis and embolism; Z85.818 Personal history of malignant neoplasm of other sites of lip, oral cavity, and pharynx; Z79.899 Other long term (current) drug therapy; Z79.1 Long term (current) use of non-steroidal anti-inflammatories (NSAID); Z98.42 Cataract extraction status, left eye; Z98.41 Cataract extraction status, right eye; Z96.1 Presence of intraocular lens; Z88.0 Allergy status to penicillin; Y83.1 Surgical operation with implant of artificial internal device as the cause of abnormal reaction of the patient, or of later complication, without mention of misadventure at the time of the procedure
CPT/HCPCS: 36573; 76770; 80048; 81003; 83735; 85025; 87070; 87075; 87205; 94640

== ENCOUNTER → 2018-10-22 | Outpatient (CLI) | payer MEDICARE, OTHER | END | disposition home or self-care (01) | LOC: RADCTMAIN 14:10 | PROVIDERS: ATTEND Internal Medicine Hematology & Oncology | DX: R59.0 Localized enlarged lymph nodes (principal); C09.0 Malignant neoplasm of tonsillar fossa; Z88.0 Allergy status to penicillin | CPT/HCPCS: 82565; 84520 ==

== ENCOUNTER → 2018-10-25 | Outpatient (CLI) | payer MEDICARE, OTHER ==
--- NOTE | 2018-10-25 16:10 | CT ---
EXAMINATION TYPE: CT neck chest without con DATE OF EXAM: 10/25/2018 COMPARISON: 06/16/2018 HISTORY: Tonsil cancer; Observe for mets CT DLP: 887.90 mGycm, Automated exposure control for dose reduction was used. CONTRAST: Performed injected with 0 mL of Isovue 300. TECHNIQUE: Axial images were obtained at 5 mm thick sections. Reconstructed images are reviewed on Smart [employer] computer in the coronal plane. FINDINGS: Portion of the thyroid visualized is normal. No suspicious lung nodules or focal infiltrates are present. No enlarged mediastinal or hilar adenopathy is evident. The ascending aorta diameter at the level o f the main pulmonary artery is 4.4 cm. The main pulmonary artery diameter at the bifurcation is 3.1 cm. There is a small pericardial effusion with a maximum depth along the anterior margin of 1.4 cm. M oderate size hiatal hernia is present. Limited CT sections are obtained through the upper abdomen. There is calcification within the large c yst at superior pole right kidney. Large cyst at superior pole left kidney. IMPRESSIONS: 1. No acute changes CT chest. 2. Large superior pole renal cyst. The right superior pole renal cyst contained calcifications and wa rrants additional workup. This was present previously. 3. 1.4 cm deep pericardial effusion. This was present previously 4. Moderate size hiatal hernia. EXAMINATION TYPE: CT neck chest without con DATE OF EXAM: 10/25/2018 COMPARISON: 06/16/2018 HISTORY: Tonsil cancer; Observe for mets CT DLP: 887.90 mGycm CONTRAST: Patient injected with 0 mL of Isovue 300. TECHNIQUE: Axial images at 3 mm thick sections. Reconstructed images in the coronal plane and sagitt al plane are reviewed. FINDINGS: Limited CT sections are obtained the lung apices. The lung apices appear clear. CT neck: The torus tubarius and fossa of Rosenmuller are normal. Erp Analyst spaces are normal. Para nasal sinuses and mastoid air cells are clear. Parotid glands appear normal and symmetrical. Submandibular glands, are normal. Parapharyngeal spac es are normal. No suspicious adenopathy is evident. The hypopharynx appears within normal limits. Tonsillar pillars appear within normal limits. Vocal cord level appear symmetrical. There is some asymmetry within the piriform sinuses with fullnes s on the right. Consider direct visualization. Thyroid as visualized is normal. No suspicious enlarged lymphadenopathy. Some shotty lymphadenopathy is present. Osseous structures are normal. IMPRESSIONS: 1. Fullness within the right hypopharynx. Recommend direct visualization. 2. The tonsillar pillars are without obvious masses.
== END | disposition home or self-care (01) ==
LOC: RADCTMAIN 08:07
PROVIDERS: ATTEND Internal Medicine Hematology & Oncology
DX: C09.0 Malignant neoplasm of tonsillar fossa (principal); Z88.0 Allergy status to penicillin
CPT/HCPCS: 36415; 70490; 71250; 82565; 84520

== ENCOUNTER → 2018-11-10 | Outpatient (CLI) | payer MEDICARE, OTHER ==
[2018-11-10 19:14] LABS: Iron Saturation 18.48 (15.00-50.00)
[2018-11-10 19:22] LABS: Vitamin D 25 Hydroxy 29.6 ng/mL (30.0-100.0)
[2018-11-10 21:12] LABS: Magnesium 1.6 mg/dL (1.5-2.4); Phosphorus 3.4 mg/dL (2.4-5.1); Uric Acid 4.7 mg/dL (3.7-8.7)
== END | disposition home or self-care (01) ==
LOC: LABWHC1 14:27
PROVIDERS: ATTEND Internal Medicine
DX: M10.9 Gout, unspecified (principal); E55.9 Vitamin D deficiency, unspecified; N25.81 Secondary hyperparathyroidism of renal origin; N39.0 Urinary tract infection, site not specified; D63.1 Anemia in chronic kidney disease; N18.3 Chronic kidney disease, stage 3 (moderate)
CPT/HCPCS: 36415; 82306; 82728; 83540; 83550; 83735; 83970; 84100; 84550

== ENCOUNTER → 2018-11-10 | Outpatient (CLI) | payer MEDICARE, OTHER ==
[2018-11-10 14:57] LABS: HCT 41.7 % (39.0-53.0); HGB 13.7 gm/dL (13.0-17.5); MCH 29.2 pg (25.0-35.0); MCHC 32.9 g/dL (31.0-37.0); Mean Platelet Volume 7.3; Platelet Count 237 k/uL (150-450); RBC 4.69 m/uL (4.30-5.90); RDW 15.8 % (11.5-15.5); WBC 5.3 k/uL (3.8-10.6)
[2018-11-10 15:00] LABS: Appearance,Urine Clear (Clear); Bilirubin,Urine Negative (Negative); Blood,Urine Negative (Negative); Color,Urine Yellow; Glucose,Urine (UA) Negative (Negative); Ketones,Urine Negative (Negative); Leukocyte Esterase,Urine Negative (Negative); Nitrite,Urine Negative (Negative); Protein,Urine Negative (Negative); Specific Gravity,Urine 1.009 (1.001-1.035); Urobilinogen,Urine <2.0 mg/dL (<2.0)
[2018-11-10 15:10] LABS: Calcium 9.5 mg/dL (8.4-10.2); INR 0.9 (<1.2); Partial Thromboplastin Time 29.2 sec (22.0-30.0); Potassium 4.4 mmol/L (3.5-5.1); Prothrombin Time 10.1 sec (9.0-12.0); Total Bilirubin 0.3 mg/dL (0.2-1.3); Total Protein 7.2 g/dL (6.3-8.2)
== END | disposition home or self-care (01) ==
LOC: LABPAT 14:24
PROVIDERS: ATTEND Orthopaedic Surgery
DX: Z01.812 Encounter for preprocedural laboratory examination (principal); M17.12 Unilateral primary osteoarthritis, left knee; M00.9 Pyogenic arthritis, unspecified; Z79.01 Long term (current) use of anticoagulants
CPT/HCPCS: 80053; 81003; 85027; 85610; 85730; 87070

== ENCOUNTER 2018-11-16 11:06 | Inpatient (IN) | payer MEDICARE, OTHER ==
[2018-11-10 08:55] VITALS: BMI 25.2
[~2018-11-16 11:06] MED LIST changes: +ACETAMINOPHEN TAB 500 MG TAB PO ONE; -BISACODYL 10 MG SUPP RECTAL PRN; -DEXAMETHASONE SOD PHOSPHATE 10 MG/ML 1 ML VIAL IV ONE; -DIAZEPAM 5 MG TAB PO PRN; +GABAPENTIN 300 MG CAP PO ONE; -HYDROcodone/APAP 5-325MG 1 EACH TAB PO PRN; -MAGNESIUM HYDROXIDE 2,400 MG/10 ML CUP PO PRN; +MELOXICAM 7.5 MG TAB PO ONE; -MIDAZOLAM 2 MG/2 ML VIAL IV PRN; -NA PHOS,M-B/NA PHOS,DI-BA 133 ML ENEMA RECTAL PRN; -NALOXONE 0.4 MG/ML 1 ML VIAL IV PRN; +ROPIVACAINE 246.25 MG, EPINEPHrine 0.5 MG, KETOROLAC 30 MG, cloNIDine HCL/PF 80 MCG, WA... MISCELLANE ONE; -SCOPOLAMINE 1.5MG/72HR PATCH TRANSDERM ONE; +TRANEXAMIC ACID 1,000 MG in SODIUM CHLORIDE 0.9% 100 ML IVPB ONE; -ceFAZolin IN SWFI 2 GM/20 ML SYRINGE IVP ONE
[2018-11-16] MEDS: LACTATED RINGERS 1,000 ML IV SCH ×3 (14:26→20:46)
[2018-11-16] MEDS ORDERED: DEXAMETHASONE SOD PHOSPHATE 10 MG/ML 1 ML VIAL IV ONE (14:29)
[2018-11-16] MEDS ORDERED: MIDAZOLAM PF (FBP) 2 MG/2 ML VIAL IVP ONE (14:31)
[2018-11-16] MEDS ORDERED: fentaNYL (PF) 50 MCG/ML 2 ML AMP IVP ONE ×2 (14:31)
[2018-11-16] MEDS ORDERED: ROPIVACAINE 0.2%-NS ON-Q PUMP 1,090 MG, EMPTY PAIN BALL 1 EACH MISCELLANE PRN (15:06)
--- NOTE | 2018-11-16 15:06 | P.ANPRN ---
Procedure Note - Anesthesia - Nerve Block Performed Left Adductor Canal Infusion Date of Procedure: 11/16/18 Procedure Start Time: 14:30 Procedure Stop Time: 14:45 Location of Patient Procedure: PreOp Indication: Acute Post-Operative Pain, Analgesia, Requested by Surgeon Specifically requested for management of pain by : Naman Barahona Sedation Type: Sedate with meaningful contact maintained Preparation: Sterile Prep, Sterile Dressing Position: Supine Catheter: Indwelling Needle Types: Pajunk Needle Gauge: 21 Ultrasound used to visualize needle placement: Yes Ultrasound used to observe medication spread: Yes Injectate: 0.5% Ropivacaine (see comment for volume) Blood Aspirated: No Pain Paresthesia on Injection Noted: No Resistance on Injection: Normal Image Stored and Saved: Yes Events: Uneventful and Well Tolerated
[2018-11-16] MEDS ORDERED: PROPOFOL 10 MG/ML 20 ML VIAL IV ONE (15:39)
[2018-11-16] MEDS ORDERED: MIDAZOLAM 2 MG/2 ML VIAL ONE (15:39)
[2018-11-16] MEDS ORDERED: fentaNYL (PF) 50 MCG/ML 2 ML AMP ONE (15:39)
[2018-11-16] MEDS ORDERED: LACTATED RINGERS 1,000 ML IV ONE (16:40)
[2018-11-16] MEDS: ROPIVACAINE 246.25 MG, EPINEPHrine 0.5 MG, KETOROLAC 30 MG, cloNIDine HCL/PF 80 MCG, WA... MISCELLANE ONE ×10 (16:44→17:26)
[2018-11-16] MEDS ORDERED: DIAZEPAM 5 MG TAB PO PRN (17:18)
[2018-11-16] MEDS ORDERED: NALOXONE 0.4 MG/ML 1 ML VIAL IV PRN (17:18)
[2018-11-16] MEDS ORDERED: ONDANSETRON 4 MG/2 ML VIAL IVP PRN (17:18)
[2018-11-16] MEDS ORDERED: HYDROmorphone 0.5 MG/0.5 ML SYRINGE IVP PRN ×3 (17:18)
[2018-11-16] MEDS ORDERED: hydrOXYzine PAMOATE 25 MG CAP PO PRN (17:18)
[2018-11-16] MEDS ORDERED: BISACODYL 10 MG SUPP RECTAL PRN (17:18)
[2018-11-16] MEDS ORDERED: NA PHOS,M-B/NA PHOS,DI-BA 133 ML ENEMA RECTAL PRN (17:18)
[2018-11-16] MEDS ORDERED: MAGNESIUM HYDROXIDE 2,400 MG/10 ML CUP PO PRN (17:18)
[2018-11-16] MEDS ORDERED: HYDROcodone/APAP 7.5-325MG 1 EACH TAB PO PRN (17:21)
--- NOTE | 2018-11-16 18:17 | P.OP ---
Date of Procedure: 11/16/18 Preoperative Diagnosis: Infection left total knee status post stage I revision Postoperative Diagnosis: Infection left total knee status post stage I revision Procedure(s) Performed: Stage II revision left total knee arthroplasty Implants: Silvestre [employer] Nephew Legion Oxinium constrained femoral component size 6, Left Sil[employer]hew Legion press-fit stem, straight 15 mm x 160 mm Sil[employer]re [employer]hew Legion Offset marketing executive 6 mm Silvestre & Nephew legion revision tibial baseplate size 5, left Silvestre [employer]hew Legion press-fit stem, straight 14 mm x 160 mm Silvestre & Nephew Ruth Ann II constrained articular insert size 5-6,18 mm All components were cemented using Simplex P Antibiotic bone cement with Tobra The articulation is Oxinium on polyethylene. Anesthesia: spinal Surgeon: Naman Barahona Fish Worm Grower #1: Nilda Carroll Estimated Blood Loss (ml): 150 Pathology: other (Cultures 2 and frozen section.) Condition: stable Disposition: PACU Indications for Procedure: This is a 73-year-old gentleman that presented to me with an infection of the left total knee arthroplasty. He underwent a stage I revision with placement of antibiotic spacer. He has completed his course of antibiotics and is cleared for surgery from infectious disease. Patient is aware of the possibility of recurrent infection with repeat of the stage I revision and placement of antibiotic spacer if the infection persist. Informed consent was obtained. Operative Findings: The operative findings are consistent with status post stage I revision for infection of the right total knee arthroplasty. Frozen section during surgery revealed no acute inflammation. Description of Procedure: Patient was seen in the preoperative area consent was reviewed and operative site was marked with a skin marker. An adductor canal pain catheter was placed by anesthesia in the preoperative area. Patient was then brought to the operating room and given preoperative antibiotics intravenously. A spinal anes thetic was administered by the anesthesia department. A tourniquet was placed on the upper thigh and the lower extremity was prepped and draped in usual sterile fashion. A gram of transexamic acid was given. A universal timeout was then performed which confirmed the patient's name, surgical site, ALLERGIES, and consent. The lower extremity was then exsanguinated and tourniquet was inflated to 250 mmHg. A standard and anterior midline approach to the knee was performed with the prior scar being used. The skin and subcutaneous tissue was dissected down to the patellar tendon. The prior scar was excised. A medial parapatellar arthrotomy was then performed. The knee was then extended, the patellar was everted, and the knee was again flexed. The knee was then cultured 2. A frozen section was obtained which was found to be negative for acute inflammation. The antibiotic spacer was then removed without difficulty. Next, sequential reaming of the femoral canal was then performed by hand. The femur was then sized and the distal cutting block was then placed in the distal femur was then freshened with a cut. Next the 4-in-1 cutting block was then placed, and set for the appropriate rotation. Anterior posterior chamfer cuts were then performed as well as anterior posterior cuts. The trial femur was then placed with appropriate length stem. Next the box cutting guide was placed in the bone for the box was then reamed and removed. Femoral trial was then removed. Attention was then directed to the tibia. Sequential reaming of the tibial canal was then performed with appropriate size. The intramedullary tibial cutting guide was then placed the tibia was then freshened with a minimal resection. The tibia was then sized and the canal was prepared for the stem. T he tibial trial was then placed and found to have a good fit. The femoral trial was then placed as well. Next, the insert trials were then sequentially used until the appropriate-sized insert was reached. Knee was able to fully extend and flex to 120 and was stable to varus and valgus and anterior posterior stresses throughout all range of motion. The patella was then everted and measured and drilled for the appropriate size patella. Trials were then removed. The cut surfaces of bone were then irrigated with pulsatile lavage. The posterior structures were injected with the ropivacaine solution. The knee was also irrigated with Irrisept solution. The components were then opened, the cement was mixed, and the components were then cemented in place. The cement was allowed to harden with the knee in full extension. While the cement was hardening, the remaining soft tissues were then injected with a ropivacaine solution, which consisted of 246.25 mg of ropivacaine, 0.5 mg of epinephrine, 30 mg of Toradol, 80 g of clonidine, and 48.45 mL of sterile water, for a total of 100 mL of fluid injected. After the cemented hardened. The tourniquet was released, and hemostasis was obtained. A second gram of transexamic acid was given. The knee was again irrigated. The knee was again taken through range of motion and found to be stable throughout all range of motion of 0-130, and the patella tracked normally. The fascia was then closed with #2 strata fix suture. The subcutaneous tissue was closed with 3-0 Vicryl and 3-0 strata fix. Dermabond glue was used for the skin and placed with the knee in flexion. The patient was placed in a sterile silver dressing. Patient was then transferred to recovery room in stable condition. The surgical assistant certified LESA Christy was required due the complexity surgery and the need for a skilled medical or surgical instrument maker. She assisted in positioning, draping, retraction, and closure of the wound.
--- NOTE | 2018-11-16 18:33 | XR ---
EXAMINATION TYPE: XR knee limited LT DATE OF EXAM: 11/16/2018 COMPARISON: 08/24/2018 HISTORY: Knee surgery TECHNIQUE: 2 views FINDINGS: There is left knee prosthesis revision. Components are in anatomic position. IMPRESSION: No complicating process. Components are in anatomic position.
[2018-11-16] MEDS: ALBUTEROL NEBULIZED 2.5 MG/3 ML INHALATION SCH (20:01)
[2018-11-16] MEDS: METOPROLOL SUCCINATE (ER) 25 MG TAB.ER.24H PO SCH (20:57)
[2018-11-16] MEDS: SENNOSIDES-DOCUSATE SODIUM 1 EACH TAB PO SCH (20:57)
[2018-11-16] MEDS: SODIUM CHLORIDE 0.9% 1,000 ML IV SCH (20:57)
[2018-11-16] MEDS: ASPIRIN 81 MG PO SCH (20:57)
[2018-11-16] MEDS: HYDROcodone/APAP 7.5-325MG 1 EACH TAB PO PRN (23:44)
--- NOTE | 2018-11-17 00:33 | CONS ---
CONSULTATION REASON FOR CONSULTATION: Advice regarding PEG tube feedings and other medical issues requested by Dr. Barahona. HISTORY OF PRESENT ILLNESS: This 73-year-old gentleman with a past medical history of multiple medical problems including history of DVT, history of GERD, hypertension, DJD, history of pulmonary embolism, sleep apnea history, history of a throat cancer in 2018 just finished chemoradiation, had PEG tube placement with the patient getting JVD feedings at night for nutrition. The patient does swallow. The patient underwent stage III revision of the left total knee arthroplasty for infection of left total knee arthroplasty by Dr. Barahona. There is no history of fever rigors or chills. No history of headache, loss of consciousness or seizures. PAST MEDICAL HISTORY: Of DVT, PEG, embolism, history of GERD, hypertension, DJD, pulmonary embolism, sleep apnea, history of PEG tube, history of esophageal throat cancer and chemoradiation. MEDICATIONS: Prior to admission include home medications are home medications: 1. Prilosec 20 mg p.o. b.i.d. 2. Toprol-XL 25 mg q.h.s. 3. Celexa 800 mg p.o. b.i.d. 4. Mobic 50 mg daily p.r.n. 5. Loratadine taper 10 mg p.o. daily. 6. Synthroid 25 mcg p.o. daily. 7. Pala 7.5 q.4 p.r.n. 8. Neurontin 100 mg p.o. b.i.d. 9. Flonase 2 sprays daily. 10.Lovenox 120 mg p.o. q.h.s. number, Clarinex 5 mg p.o. daily. 11.Aspirin 81 mg q.h.s. Zyloprim 100 mg p.o. daily. 12.Ventolin 2.5 b.i.d. ALLERGIES: PENICILLIN. FAMILY HISTORY: History of breast cancer in the family. SOCIAL HISTORY: Previous history of smoking. No history of current smoking or alcohol intake. REVIEW OF SYSTEMS: HEENT: As mentioned earlier. CARDIOVASCULAR: S1, S2. GASTROINTESTINAL: As mentioned earlier. : No dysuria. No hematuria. CENTRAL NERVOUS SYSTEM: No numbness or weakness. ALLERGY/IMMUNOLOGY: No asthma. MUSCULOSKELETAL: As mentioned earlier. HEMATOLOGY/ONCOLOGY: No history of anemia. ENDOCRINE: As mentioned earlier. DERMATOLOGY: Negative. RHEUMATOID: Negative. PSYCHIATRIC: As mentioned earlier. PHYSICAL EXAMINATION: GENERAL: Alert and oriented times three. Pulse 63, blood pressure 130/82. Respiratory rate 16. Temperature 97.7. Pulse ox 97% on room air. HEENT: Conjunctivae normal. Oral mucosa moist. NECK: No lymph enlargement. No rhonchi. No crackles. CARDIOVASCULAR: No angina or palpitations. RESPIRATION: Breath sounds diminished in the bases. ABDOMEN: Soft. Peg tube in situ. LEGS: Status post revision. Knee joint revision. CENTRAL NERVOUS SYSTEM: Higher functions as mentioned earlier. Moves all four extremities. No focal deficits. SKIN: No ulcer, rash or bleeding. No active deforming arthropathy. The patient sees Dr. Israel in the outpatient setting. LABS: The preop labs including hematology normal otherwise. Coags are normal. Chemistry also reviewed. Otherwise labs are noted. ASSESSMENT: 1. Status post stage II revision of the left total knee arthroplasty for infection of the left total knee. 2. History of recent laryngeal cancer status post chemo radiation and PEG tube placement and Jevity feeds at night for nutrition. 3. History of deep vein thrombosis. 4. Gastroesophageal reflux disease. 5. Hypertension. 6. History of degenerative joint disease. 7. History of pulmonary embolism. 8. Obstructive sleep apnea. 9. History of hypothyroidism. 10.History of tonsillectomy. 11.Remote history of nicotine dependence. 12.FULL CODE. RECOMMENDATIONS AND DISCUSSION: In this 73-year-old gentleman who presented with multiple complex medical issues, at this time, I recommend to continue current medications, management and symptomatic treatment. I recommend resume the home medications. I would also recommend DVT prophylaxis. Continue to monitor. Proton pump inhibitors. Continue the G-tube feeds at night. Aspiration precautions. Further recommendations to follow. We will follow the patient closely with you. The patient may be asked to follow up with Dr. Israel closely after discharge. Thank you Dr. Israel for letting us participate in the care of this patient. MMODL / IJN: [id number] /
[2018-11-17] MEDS: LACTATED RINGERS 1,000 ML IV SCH ×2 (04:14→15:41)
[2018-11-17] MEDS: HYDROcodone/APAP 7.5-325MG 1 EACH TAB PO PRN ×3 (06:14→20:05)
[2018-11-17] MEDS: LEVOTHYROXINE 25 MCG TAB PO SCH (06:14)
[2018-11-17 07:44] LABS: Anisocytosis Slight; Basophils # (A) 0.1 k/uL (0-0.2); Basophils % (A) 1 %; Eosinophils % (A) 0 %; HCT 38.3 % (39.0-53.0); HGB 12.5 gm/dL (13.0-17.5); Lymphocytes # (A) 0.6 k/uL (1.0-4.8); Lymphocytes % (A) 6 %; MCH 29.4 pg (25.0-35.0); MCHC 32.7 g/dL (31.0-37.0); MCV 89.9 fL (80.0-100.0); Mean Platelet Volume 7.8; Monocytes # (A) 0.4 k/uL (0-1.0); Monocytes % (A) 4 %; Neutrophils # (A) 8.7 k/uL (1.3-7.7); Neutrophils % (A) 89 %; Platelet Count 217 k/uL (150-450); RBC 4.26 m/uL (4.30-5.90); RDW 16.9 % (11.5-15.5); WBC 9.9 k/uL (3.8-10.6)
[2018-11-17] MEDS: ALBUTEROL NEBULIZED 2.5 MG/3 ML INHALATION SCH ×2 (09:02→21:21)
[2018-11-17] MEDS: SODIUM CHLORIDE 0.9% 1,000 ML IV SCH (09:13)
[2018-11-17] MEDS: ALLOPURINOL 100 MG TAB PO SCH (09:14)
[2018-11-17] MEDS: ENOXAPARIN 120 MG/0.8 ML SYRINGE SQ SCH (09:14)
[2018-11-17] MEDS: FLUTICASONE 50MCG/SPRAY NASAL 16GM EA NOSTRIL SCH (09:14)
[2018-11-17] MEDS: PANTOPRAZOLE 40 MG TABLET PO SCH (09:14)
[2018-11-17] MEDS: LORATADINE 10 MG TAB PO SCH (09:14)
[2018-11-17] MEDS: GABAPENTIN 100 MG CAP PO SCH ×2 (09:14→20:05)
--- NOTE | 2018-11-17 09:43 | P.PN ---
Subjective Progress Note Date: 11/17/18 This is a 73-year-old male who is status post stage II revision left total knee arthroplasty. This is postoperative day #1 and patient is seen and evaluated at bedside with Dr. Naman Barahona. Patient states that his pain is well controlled today, but he has not been up and walking with physical therapy yet. Patient is on Lovenox for postoperative DVT prophylaxis per internal medicine for history of pulmonary embolism. Patient denies any fever/chills, numbness, weakness, tingling, abdominal pain, shortness of breath or chest pain. Objective - Vital Signs Vital signs: Vital Signs Temp 97.9 F 11/17/18 07:05 Pulse 72 11/17/18 09:14 Resp 20 11/17/18 07:05 BP 100/61 11/17/18 07:05 Pulse Ox 97 11/17/18 07:05 Intake & Output 11/16/18 11/17/18 11/17/18 18:59 06:59 18:59 Intake Total 1950 1180 400 Output Total 150 350 Balance 1800 830 400 Intake: IV 1950 Intake, IV Titration 830 Amount Sodium Chloride 0.9% 1, 780 000 ml @ 65 mls/hr IV . [id number] RA Rx#:[id number] ceFAZolin 2 gm In Sodium 50 Chloride 0.9% 50 ml @ 100 mls/hr IVPB Q8HR RA Rx# :[id number] Oral 150 400 Tube Feeding 200 Output: Urine 350 Estimated Blood Loss 150 Other: Voiding Method Urinal Urinal # Voids 2 - Exam Vital signs are stable. Patient is in no acute distress and is alert and oriented 3. Calf is soft and nontender to palpation. Dressing is clean, dry, and intact. Patient has full foot and ankle motion without pain or difficulty. Neurovascular status and circulatory status are intact. - Labs CBC & Chem 7: 11/17/18 06:41 Labs: Abnormal Lab Results - Last 24 Hours (Table) 11/17/18 Range/Units 06:41 RBC 4.26 L (4.30-5.90) m/uL Hgb 12.5 L (13.0-17.5) gm/dL Hct 38.3 L (39.0-53.0) % RDW 16.9 H (11.5-15.5) % Neutrophils # 8.7 H (1.3-7.7) k/uL Lymphocytes # 0.6 L (1.0-4.8) k/uL Microbiology - Last 24 Hours (Table) 11/16/18 17:00 Gram Stain - Preliminary Knee - Left Wound Culture - Preliminary 11/16/18 17:00 Gram Stain - Preliminary Knee - Left Wound Culture - Preliminary 11/16/18 17:00 Anaerobic Culture - Preliminary Knee - Left 11/16/18 17:00 Anaerobic Culture - Preliminary Knee - Left Assessment and Plan (1) Status post revision of total replacement of left knee Current Visit: Yes Status: Acute Code(s): Z96.652 - PRESENCE OF LEFT ARTIFICIAL KNEE JOINT SNOMED Code(s): 796285646372956 Plan: #1 Continue with routine postoperative care and pain control, leave dressing in place for ten days. #2 Anticoagulation with Lovenox per internal medicine. #3 Physical therapy and CPM today. #4 Appreciate input from medicine. #5 Cultures are pending. There was no evidence of continued infection during surgery. #6 Anticipate discharge home with home care likely tomorrow.
--- NOTE | 2018-11-17 14:30 | P.PN ---
Progress Note - Text Progress Note Date: 11/17/18 Postoperative day # 1 status post total knee arthroplasty, under spinal anes thesia, and adductor canal catheter placed for postoperative analgesia. Currently on ropivacaine 0.2% 8 mL per hour and continuous infusion, catheter site local. There is no erythema, and there is no tenderness at site of catheter insertion VAS: 7/10 Breakthrough Meds: Complications: None . Assessment and Plan: Acute postoperative pain, adductor canal catheter for pain control, pain is well controlled will continue the same management. Promote early ambulation
--- NOTE | 2018-11-17 18:43 | PN ---
PROGRESS NOTE DATE OF SERVICE: 11/17/2018. This 73-year-old gentleman who was admitted after stage II revision of left total knee arthroplasty is improving significantly. Patient also had PEG tube placement and nighttime feeds. No chest pain. No palpitations. No fever. PHYSICAL EXAMINATION: Alert and oriented x3. Pulse 71, blood pressure 173/85, respirations 16, temperature 98.1, pulse ox 97% on room air. HEENT: Conjunctivae normal. NECK: No jugular venous distention. CARDIOVASCULAR SYSTEM: S1, S2 muffled. RESPIRATORY SYSTEM: Breath sounds diminished at the bases. A few scattered rhonchi and crackles. ABDOMEN: Soft, non-tender. LEGS: No edema. No swelling. NERVOUS SYSTEM: No focal deficit. LABS: WBC 9.3, hemoglobin 12.5. ASSESSMENT: 1. 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 2. History of recent laryngeal cancer, status post chemoradiation and PEG tube placement with Jevity feeds at nighttime for nutrition. 3. History of deep vein thrombosis. 4. Gastroesophageal reflux disease. 5. Hypertension. 6. History of degenerative joint disease. 7. History of pulmonary embolus. 8. Obstructive sleep apnea. 9. History of hypothyroidism. 10.History of tonsillectomy. 11.Remote history of nicotine dependence. 12.FULL CODE. RECOMMENDATIONS AND DISCUSSION: I recommend to continue current medications, continue with the monitoring, symptomatic treatment. DVT prophylaxis. Tube feeds. Closely follow with Orthopedic Surgery. Patient may be asked to follow up with Dr. Israel after discharge closely. MMODL / IJN: [id number] /
[2018-11-17] MEDS: ASPIRIN 81 MG PO SCH (20:05)
[2018-11-17] MEDS: SENNOSIDES-DOCUSATE SODIUM 1 EACH TAB PO SCH (20:05)
[2018-11-17] MEDS: METOPROLOL SUCCINATE (ER) 25 MG TAB.ER.24H PO SCH (20:05)
[2018-11-18] MEDS: SODIUM CHLORIDE 0.9% 1,000 ML IV SCH ×2 (00:36→18:29)
[2018-11-18] MEDS: LACTATED RINGERS 1,000 ML IV SCH ×2 (04:56→18:29)
[2018-11-18] MEDS: LEVOTHYROXINE 25 MCG TAB PO SCH (05:53)
[2018-11-18] MEDS: HYDROcodone/APAP 7.5-325MG 1 EACH TAB PO PRN ×3 (05:53→20:55)
[2018-11-18] MEDS: PANTOPRAZOLE 40 MG TABLET PO SCH (08:23)
[2018-11-18] MEDS: ENOXAPARIN 120 MG/0.8 ML SYRINGE SQ SCH (08:23)
[2018-11-18] MEDS: ALLOPURINOL 100 MG TAB PO SCH (08:23)
[2018-11-18] MEDS: LORATADINE 10 MG TAB PO SCH (08:23)
[2018-11-18] MEDS: GABAPENTIN 100 MG CAP PO SCH ×2 (08:23→20:54)
[2018-11-18] MEDS: ALBUTEROL NEBULIZED 2.5 MG/3 ML INHALATION SCH ×2 (08:24→19:54)
[2018-11-18] MEDS: FLUTICASONE 50MCG/SPRAY NASAL 16GM EA NOSTRIL SCH (08:24)
--- NOTE | 2018-11-18 08:44 | P.DS ---
Providers Date of admission: 11/16/18 11:06 Expected date of discharge: 11/18/18 Attending physician: Naman Barahona Consults: 11/16/18 17:18 Consult Physician Routine Consulting Provider: Priti Marx Consult Reason/Comments: medical management and anticoagulation Do you want consulting provider notified?: Yes Primary care physician: Gil Israel - Discharge Diagnosis(es) (1) Status post revision of total replacement of left knee Current Visit: Yes Status: Acute (2) History of total knee arthroplasty Current Visit: No Status: Acute Hospital Course: This is a 73-year-old male last seen in our office with a previous infection of the left total knee arthroplasty with antibiotic spacer placement in the past. After discussion and consideration, the patient elected to proceed with a Stage II revision left total knee arthroplasty. Patient was seen preoperatively, and medically cleared for surgery by his primary care physician. Patient was admitted to [facility] underwent a Stage II revision left total knee arthroplasty on 11/16/[address] Naman Barahona. The procedure was performed without complications or sequelae. The patient is seen and evaluated at bedside today. Pain is well-controlled. Patient has no new complaints today and denies any fevers, chills, nausea, vomiting, or shortness of breath. Vital signs are stable. Dressing is clean dry and intact. Incision looks fine with no erythema or active drainage. Calf is soft and nontender. Patient has full foot and ankle motion without difficulty. Patient's left lower extremity is neurovascularly intact. The patient is orthopedically stable for discharge today. Pertinent Studies: Laboratory Tests 11/17/18 06:41 WBC 9.9 RBC 4.26 L Hgb 12.5 L Hct 38.3 L RDW 16.9 H Neutrophils # 8.7 H Lymphocytes # 0.6 L Patient Condition at Discharge: Stable Plan - Discharge Summary Discharge Rx Participant: Yes New Discharge Prescriptions: New HYDROcodone/APAP 7.5-325MG [[place] 7.5-325] 1 - 2 tab PO Q6H PRN #56 tab PRN Reason: Pain Sennosides [Senokot] 1 tab PO BID #60 tablet No Action Omeprazole [PriLOSEC] 20 mg PO BID Allopurinol [Zyloprim] 100 mg PO DAILY Metaxalone [Skelaxin] 800 mg PO BID Aspirin [Adult Low Dose Aspirin EC] 81 mg PO HS Fluticasone Nasal [place] [Flonase Nasal [place]] 2 spr EA NOSTRIL DAILY Gabapentin [Neurontin] 100 mg PO BID Enoxaparin [Lovenox] 120 mg SQ HS Albuterol Nebulized [Ventolin Nebulized] 2.5 mg INHALATION RT-BID Meloxicam [Mobic] 15 mg PO DAILY PRN PRN Reason: Pain Hydrocodone/Acetaminophen [[place] 7.5-325] 1 tab PO Q4-6H PRN PRN Reason: Pain Levothyroxine Sodium [Synthroid] 25 mcg PO DAILY Loratadine 10 mg PO DAILY Metoprolol Succinate (ER) [Toprol Xl] 25 mg PO HS Desloratadine [Clarinex] 5 mg PO DAILY Discharge Medication List Allopurinol [Zyloprim] 100 mg PO DAILY 07/27/13 [History] Metaxalone [Skelaxin] 800 mg PO BID 07/27/13 [History] Omeprazole [PriLOSEC] 20 mg PO BID 07/27/13 [History] Aspirin [Adult Low Dose Aspirin EC] 81 mg PO HS 06/26/17 [History] Fluticasone Nasal [place] [Flonase Nasal [place]] 2 spr EA NOSTRIL DAILY 07/30/17 [History] Gabapentin [Neurontin] 100 mg PO BID 12/17/17 [History] Enoxaparin [Lovenox] 120 mg SQ HS 01/19/18 [History] Albuterol Nebulized [Ventolin Nebulized] 2.5 mg INHALATION RT-BID 05/24/18 [History] Meloxicam [Mobic] 15 mg PO DAILY PRN 05/24/18 [History] Hydrocodone/Acetaminophen [[place] 7.5-325] 1 tab PO Q4-6H PRN 08/19/18 [History] Levothyroxine Sodium [Synthroid] 25 mcg PO DAILY 08/19/18 [History] Loratadine 10 mg PO DAILY 08/19/18 [History] Metoprolol Succinate (ER) [Toprol Xl] 25 mg PO HS 08/19/18 [History] Desloratadine [Clarinex] 5 mg PO DAILY 11/10/18 [History] HYDROcodone/APAP 7.5-325MG [[place] 7.5-325] 1 - 2 tab PO Q6H PRN #56 tab 11/17/18 [Rx] Sennosides [Senokot] 1 tab PO BID #60 tablet 11/17/18 [Rx] Follow up Appointment(s)/Referral(s): [facility], [NON-STAFF] - Gil Israel MD [Primary Care Provider] - 1 Week Naman Barahona DO [Doctor of Osteopathic Medicine] - 2 Weeks Ambulatory/Diagnostic Orders: Continuous Passive Motion (CPM) Machine [DME.AMB1] Time Frame: 3 Weeks, Location: None Selected Activity/Diet/Wound Care/Special Instructions: Weightbearing as tolerated with a walker. CPM 5-6h daily. Leave dressing intact. May be removed by home care nurse or by patient in 10 days. May shower with dressing on. Lovenox dosing per internal medicine. Recommend use of compression stockings daily for at least 2 weeks during the day to help prevent swelling and blood clots. May remove at night before sleeping. Please follow [facility] with [facility] and call with any questions or concerns, . Discharge Disposition: HOME WITH HOME HEALTH SERVICES
--- NOTE | 2018-11-18 16:14 | PN ---
PROGRESS NOTE DATE OF SERVICE: 11/18/2018. This 73-year-old gentleman who was admitted with stage II revision of left total knee arthroplasty is improving significantly. No chest pain. No palpitations. No fever. PHYSICAL EXAMINATION: Alert and oriented x3. Pulse 82, blood pressure 115/66, respirations 16, temperature 98.1, pulse ox 98% on 2 L. HEENT: Conjunctivae normal. NECK: No jugular venous distention. CARDIOVASCULAR SYSTEM: S1, S2 muffled. RESPIRATORY SYSTEM: Breath sounds diminished at the bases. No rhonchi. No crackles. ABDOMEN: Soft, non-tender. PEG tube in situ. LEGS: Status post knee revision. LABS: Labs are reviewed. ASSESSMENT: 1. 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 2. History of recent laryngeal cancer, status post chemoradiation and PEG tube placement and Jevity feeds at nighttime for nutrition. 3. History of deep vein thrombosis. 4. Gastroesophageal reflux disease. 5. Hypertension. 6. History of degenerative joint disease. 7. History of pulmonary embolism. 8. History of obstructive sleep apnea. 9. History of hypothyroidism. 10.History of tonsillectomy. 11.Remote history of nicotine dependence. 12.FULL CODE. RECOMMENDATIONS AND DISCUSSION: I recommend to continue current medications, continue with the monitoring, symptomatic treatment. Otherwise, resume the home medications. Closely follow with Dr. Israel in the outpatient setting. Further recommendations to follow. Rest of the recommendations per Orthopedic Surgery. MMODL / IJN: [id number] /
[2018-11-18] MEDS: METOPROLOL SUCCINATE (ER) 25 MG TAB.ER.24H PO SCH (20:54)
[2018-11-18] MEDS: ASPIRIN 81 MG PO SCH (20:54)
[2018-11-18] MEDS: SENNOSIDES-DOCUSATE SODIUM 1 EACH TAB PO SCH (20:54)
[2018-11-19] MEDS: LACTATED RINGERS 1,000 ML IV SCH (05:36)
[2018-11-19] MEDS: HYDROcodone/APAP 7.5-325MG 1 EACH TAB PO PRN ×2 (06:13→12:51)
[2018-11-19] MEDS: LEVOTHYROXINE 25 MCG TAB PO SCH (06:13)
[2018-11-19 07:29] LABS: Anisocytosis Slight; Basophils % (A) 0 %; Eosinophils # (A) 0.7 k/uL (0-0.7); Eosinophils % (A) 12 %; HCT 32.2 % (39.0-53.0); HGB 10.7 gm/dL (13.0-17.5); Lymphocytes # (A) 0.6 k/uL (1.0-4.8); Lymphocytes % (A) 11 %; MCHC 33.3 g/dL (31.0-37.0); Monocytes # (A) 0.4 k/uL (0-1.0); Monocytes % (A) 7 %; Neutrophils # (A) 3.9 k/uL (1.3-7.7); Neutrophils % (A) 68 %; Platelet Count 168 k/uL (150-450); RBC 3.58 m/uL (4.30-5.90); WBC 5.7 k/uL (3.8-10.6)
--- NOTE | 2018-11-19 08:17 | P.PN ---
Progress Note - Text Progress Note Date: 11/19/18 This is a 73-year-old male who is status post stage II revision of his left total knee arthroplasty. His discharge was held yesterday secondary to pain management issues. He is doing better today and will be discharged to home this afternoon. Vital signs and labs are stable. He has no new complaints or concerns today. Incision has no erythema. There is scant amount of drainage on the dressing. He has full foot and ankle motion without difficulty or pain. Neurovascular status to the lower extremity is intact. He may discharged to home today in good condition. Please see discharge summary.
[2018-11-19] MEDS: ALBUTEROL NEBULIZED 2.5 MG/3 ML INHALATION SCH (08:35)
[2018-11-19] MEDS: ALLOPURINOL 100 MG TAB PO SCH (08:49)
[2018-11-19] MEDS: GABAPENTIN 100 MG CAP PO SCH (08:49)
[2018-11-19] MEDS: PANTOPRAZOLE 40 MG TABLET PO SCH (08:49)
[2018-11-19] MEDS: LORATADINE 10 MG TAB PO SCH (08:49)
[2018-11-19] MEDS: ENOXAPARIN 120 MG/0.8 ML SYRINGE SQ SCH (08:50)
[2018-11-19] MEDS: FLUTICASONE 50MCG/SPRAY NASAL 16GM EA NOSTRIL SCH (08:50)
[2018-11-19] MEDS: SODIUM CHLORIDE 0.9% 1,000 ML IV SCH (08:58)
--- NOTE | 2018-11-19 13:29 | CDI ---
Documentation Clarification Form Date: 11/19/2018 1:15:16 PM From: Eryn DanielsCharlesKENN lopez, CCDS Admit Date: 11/16/2018 11:06:00 AM Patient Name: Rich Meza Visit Number: [id number] Discharge Date: ATTENTION: The Clinical Documentation Specialists (CDI) and [facility] Coding Staff appreciate your assistance in clarifying documentation. Please respond to the clarification below the line at the bottom and electronically sign. The CDI & [facility] Coding staff will review the response and follow-up if needed. Please note: Queries are made part of the Legal Health Record. If you have any questions, please contact the author of this message via ITS. Dr. Naman Barahona: Per the 11/19 orthopedic surgeon's progress note: "This is a 73-year-old male who is status post stage II revision of his left total knee arthroplasty. His discharge was held yesterday secondary to pain management issues. He is doing better today and will be discharged to home this afternoon." Per Anesthesiologist's progress note 11/17: "Acute postoperative pain, adductor canal catheter for pain control, pain is well controlled will continue the same management.: Patients Admitting Diagnosis: Infection of left total knee status post stage I revision. Post-Operative Diagnosis: Same. Procedure performed: Stage II revision of left total knee arthroplasty. History/Risk Factors: GERD, Throat CA w/PEG tube, DVT, Hypertension, PE, Sleep apnea, OA left knee. Clinical Indicators: Patient presented for elective revision of left total knee arthroplasty. Postoperatively was treated for hernandez management & discharge was held due to pain per documentation. Treatment: IV Dilaudid, IV Zofran, po Tylenol, IV Cefazolin, po [place], INH Albuterol, IV fluid rate 65. Nerve block performed per anesthesia. In order to accurately reflect this patients severity of illness, please clarify the significance of the patient's postoperative pain? Complication of the procedure: Yes Complication of the procedure: No Was the patient's postoperative pain an expected outcome of the patient's procedure? o Please specify reason or cause in known. Was the patient's postoperative pain an unexpected outcome of the patient's procedure? o Please specify reason or cause if known. Other, please specify Unable to determine (Last Revision: May 2017) MTDD
[2018-11-19 15:26] VITALS: BP 115/77; PULSE 78; RESP 14; TEMP 98
--- NOTE | 2018-11-23 07:45 | CDI ---
Documentation Clarification Form Date: 11/19/2018 1:15:00 PM From: Eryn CharlesKENN, CCDS Admit Date: 11/16/2018 11:06:00 AM Patient Name: Rich Meza Visit Number: [id number] Discharge Date: 11/19/2018 5:07:00 PM ATTENTION: The Clinical Documentation Specialists (CDI) and [facility] Coding Staff appreciate your assistance in clarifying documentation. Please respond to the clarification below the line at the bottom and electronically sign. The CDI & [facility] Coding staff will review the response and follow-up if needed. Please note: Queries are made part of the Legal Health Record. If you have any questions, please contact the author of this message via ITS. Dr. Naman Barahona: Per the 11/19 orthopedic surgeon's progress note: "This is a 73-year-old male who is status post stage II revision of his left total knee arthroplasty. His discharge was held yesterday secondary to pain management issues. He is doing better today and will be discharged to home this afternoon." Per Anesthesiologist's progress note 11/17: "Acute postoperative pain, adductor canal catheter for pain control, pain is well controlled will continue the same management.: Patients Admitting Diagnosis: Infection of left total knee status post stage I revision. Post-Operative Diagnosis: Same. Procedure performed: Stage II revision of left total knee arthroplasty. History/Risk Factors: GERD, Throat CA w/PEG tube, DVT, Hypertension, PE, Sleep apnea, OA left knee. Clinical Indicators: Patient presented for elective revision of left total knee arthroplasty. Postoperatively was treated for hernandez management & discharge was held due to pain per documentation. Treatment: IV Dilaudid, IV Zofran, po Tylenol, IV Cefazolin, po [place], INH Albuterol, IV fluid rate 65. Nerve block performed per anesthesia. In order to accurately reflect this patients severity of illness, please clarify the significance of the patient's postoperative pain? Complication of the procedure: Yes Complication of the procedure: No Was the patient's postoperative pain an expected outcome of the patient's procedure? Please specify reason or cause in known. Was the patient's postoperative pain an unexpected outcome of the patient's procedure? Please specify reason or cause if known. Other, please specify Unable to determine (Last Revision: May 2017) MTDD
--- NOTE | 2018-12-09 08:19 | CDI ---
Documentation Clarification Form Date: 11/19/2018 1:15:00 PM From: Eryn CharlesKENN, CCDS Admit Date: 11/16/2018 11:06:00 AM Patient Name: Rich Meza Visit Number: [id number] Discharge Date: 11/19/2018 5:07:00 PM ATTENTION: The Clinical Documentation Specialists (CDI) and [facility] Coding Staff appreciate your assistance in clarifying documentation. Please respond to the clarification below the line at the bottom and electronically sign. The CDI & [facility] Coding staff will review the response and follow-up if needed. Please note: Queries are made part of the Legal Health Record. If you have any questions, please contact the author of this message via ITS. Dr. Naman Barahona: Per the 11/19 orthopedic surgeon's progress note: "This is a 73-year-old male who is status post stage II revision of his left total knee arthroplasty. His discharge was held yesterday secondary to pain management issues. He is doing better today and will be discharged to home this afternoon." Per Anesthesiologist's progress note 11/17: "Acute postoperative pain, adductor canal catheter for pain control, pain is well controlled will continue the same management.: Patients Admitting Diagnosis: Infection of left total knee status post stage I revision. Post-Operative Diagnosis: Same. Procedure performed: Stage II revision of left total knee arthroplasty. History/Risk Factors: GERD, Throat CA w/PEG tube, DVT, Hypertension, PE, Sleep apnea, OA left knee. Clinical Indicators: Patient presented for elective revision of left total knee arthroplasty. Postoperatively was treated for hernandez management & discharge was held due to pain per documentation. Treatment: IV Dilaudid, IV Zofran, po Tylenol, IV Cefazolin, po [place], INH Albuterol, IV fluid rate 65. Nerve block performed per anesthesia. In order to accurately reflect this patients severity of illness, please clarify the significance of the patient's postoperative pain? Complication of the procedure: Yes Complication of the procedure: No Was the patient's postoperative pain an expected outcome of the patient's procedure? Please specify reason or cause in known. Was the patient's postoperative pain an unexpected outcome of the patient's procedure? Please specify reason or cause if known. Other, please specify Unable to determine (Last Revision: May 2017) MTDD
== END 2018-11-19 17:07 | disposition home health service (06) | DRG 468 ==
LOC: 2ORMAIN 11:06 → EDSTATUS 13:45 → 4SSUR 18:22
PROVIDERS: ADMIT Orthopaedic Surgery; ATTEND Orthopaedic Surgery
PROC: 0SPD0EZ Removal of Articulating Spacer from Left Knee Joint, Open Approach (ICD-10-PCS; principal; 2018-11-16 14:45)
PROC: 0SRD06A Replacement of Left Knee Joint with Oxidized Zirconium on Polyethylene Synthetic Substitute, Uncemented, Open Approach (ICD-10-PCS; principal; 2018-11-16 14:45)
DX: Z47.32 Aftercare following explantation of hip joint prosthesis (principal); E03.9 Hypothyroidism, unspecified; G47.33 Obstructive sleep apnea (adult) (pediatric); I10 Essential (primary) hypertension; K21.9 Gastro-esophageal reflux disease without esophagitis; Z85.21 Personal history of malignant neoplasm of larynx; Z85.819 Personal history of malignant neoplasm of unspecified site of lip, oral cavity, and pharynx; Z86.711 Personal history of pulmonary embolism; Z86.718 Personal history of other venous thrombosis and embolism; Z87.891 Personal history of nicotine dependence; Z92.21 Personal history of antineoplastic chemotherapy; Z92.3 Personal history of irradiation; Z93.1 Gastrostomy status; Z79.899 Other long term (current) drug therapy; Z88.0 Allergy status to penicillin; Z79.82 Long term (current) use of aspirin; Z79.890 Hormone replacement therapy
CPT/HCPCS: 64448; 85025; 86850; 86900; 86901; 87070; 87075; 87205; 88305; 88331; 94640; 94760

== ENCOUNTER → 2019-02-14 | Outpatient (CLI) | payer MEDICARE, OTHER ==
[2019-02-14 15:52] LABS: HCT 44.7 % (39.0-53.0); HGB 14.5 gm/dL (13.0-17.5); MCHC 32.5 g/dL (31.0-37.0); MCV 89.3 fL (80.0-100.0); Mean Platelet Volume 7.9; Platelet Count 308 k/uL (150-450); RDW 14.1 % (11.5-15.5); WBC 9.3 k/uL (3.8-10.6)
[2019-02-14 15:58] LABS: Appearance,Urine Clear (Clear); Bilirubin,Urine Negative (Negative); Blood,Urine Negative (Negative); Calcium Oxalate Crystals,Urine Rare /hpf; Color,Urine Yellow; Glucose,Urine (UA) Negative (Negative); Ketones,Urine Negative (Negative); Leukocyte Esterase,Urine Negative (Negative); Mucus,Urine Rare /hpf; Nitrite,Urine Negative (Negative); Protein,Urine 1+ (Negative); RBC,Urine 3 /hpf (0-5); Specific Gravity,Urine 1.022 (1.001-1.035); WBC,Urine <1 /hpf (0-5)
[2019-02-14 16:02] LABS: Partial Thromboplastin Time 33.1 sec (22.0-30.0); Prothrombin Time 10.7 sec (9.0-12.0)
[2019-02-14 16:03] LABS: Calcium 9.8 mg/dL (8.4-10.2); Potassium 4.5 mmol/L (3.5-5.1); Total Bilirubin 0.8 mg/dL (0.2-1.3); Total Protein 7.6 g/dL (6.3-8.2)
[2019-02-14 16:15] LABS: C Reactive Protein 264.2 mg/L (<10.0)
[2019-02-14 16:59] LABS: Appearance,BF Cloudy; Color,BF Red
[2019-02-14 17:00] LABS: Nucleated Cells, Body Fluid 94400 /uL; RBC, Body Fluid 26600 /uL
[2019-02-14 17:02] LABS: Mononuclear WBC,Body Fluid 4 %; Polynuclear WBC,Body Fluid 96 %
[2019-02-14 18:29] LABS: Erythrocyte Sedimentation Rate 40 mm/hr (0-15)
== END | disposition home or self-care (01) ==
LOC: LABPAT 14:42
PROVIDERS: ATTEND Orthopaedic Surgery Hand Surgery
DX: Z01.818 Encounter for other preprocedural examination (principal); Z01.812 Encounter for preprocedural laboratory examination; M17.12 Unilateral primary osteoarthritis, left knee; M25.562 Pain in left knee; T84.54XD Infection and inflammatory reaction due to internal left knee prosthesis, subsequent encounter; Z48.89 Encounter for other specified surgical aftercare; I10 Essential (primary) hypertension; Z96.652 Presence of left artificial knee joint
CPT/HCPCS: 80053; 81001; 85027; 85610; 85652; 85730; 86140; 87070; 87075; 87077; 87186; 87205; 89050; 89060; 93005

== ENCOUNTER 2019-02-16 15:06 | Inpatient (IN) | payer MEDICARE, OTHER ==
[~2019-02-16 15:06] MED LIST changes: -ACETAMINOPHEN TAB 500 MG TAB PO ONE; +BISACODYL 10 MG SUPP RECTAL PRN; -GABAPENTIN 300 MG CAP PO ONE; -LIDOCAINE 1% 20 ML VIAL (10MG/ML) FOR IV START INTRADERMA PRN; +MAGNESIUM HYDROXIDE 2,400 MG/10 ML CUP PO PRN; -MELOXICAM 7.5 MG TAB PO ONE; +NA PHOS,M-B/NA PHOS,DI-BA 133 ML ENEMA RECTAL PRN; +NALOXONE 0.4 MG/ML 1 ML VIAL IV PRN; -ONDANSETRON 4 MG/2 ML VIAL IVP ONE; -ROPIVACAINE 246.25 MG, EPINEPHrine 0.5 MG, KETOROLAC 30 MG, cloNIDine HCL/PF 80 MCG, WA... MISCELLANE ONE; -TRANEXAMIC ACID 1,000 MG in SODIUM CHLORIDE 0.9% 100 ML IVPB ONE
[2019-02-16] MEDS: SODIUM CHLORIDE 0.9% 1,000 ML IV SCH (15:33)
[2019-02-16] MEDS ORDERED: SENNOSIDES 8.6 MG TAB PO PRN (17:34)
[2019-02-16] MEDS ORDERED: PANTOPRAZOLE 40 MG TABLET PO ONE (17:45)
--- NOTE | 2019-02-16 18:23 | XR ---
EXAMINATION TYPE: XR chest 1V portable DATE OF EXAM: 02/16/2019 COMPARISON: 05/25/2018 HISTORY: Preop. Short of breath. TECHNIQUE: Single view FINDINGS: There is some minimal linear density at the left lung base. Right lung is clear. There is n o heart failure. Heart size is normal. IMPRESSION: Minimal atelectasis left lung base is improved compared to old exam. Normal heart.
[2019-02-16 18:46] LABS: Basophils # (A) 0.1 k/uL (0-0.2); Basophils % (A) 2 %; Eosinophils # (A) 0.1 k/uL (0-0.7); Eosinophils % (A) 1 %; HCT 40.8 % (39.0-53.0); Lymphocytes # (A) 0.4 k/uL (1.0-4.8); Lymphocytes % (A) 6 %; MCH 28.2 pg (25.0-35.0); MCHC 31.9 g/dL (31.0-37.0); MCV 88.5 fL (80.0-100.0); Monocytes # (A) 0.5 k/uL (0-1.0); Monocytes % (A) 8 %; Neutrophils # (A) 5.6 k/uL (1.3-7.7); Neutrophils % (A) 81 %; Platelet Count 255 k/uL (150-450); RBC 4.61 m/uL (4.30-5.90)
[2019-02-16 18:48] LABS: Albumin 3.3 g/dL (3.5-5.0); Calcium 8.8 mg/dL (8.4-10.2); Potassium 4.6 mmol/L (3.5-5.1); Total Bilirubin 0.7 mg/dL (0.2-1.3); Total Protein 6.6 g/dL (6.3-8.2)
[2019-02-16] MEDS: SENNOSIDES-DOCUSATE SODIUM 1 EACH TAB PO SCH ×2 (20:03→20:40)
[2019-02-16] MEDS: GABAPENTIN 100 MG CAP PO SCH (20:03)
[2019-02-16] MEDS: METOPROLOL SUCCINATE (ER) 25 MG TAB.ER.24H PO SCH (20:03)
[2019-02-16] MEDS: HYDROcodone/APAP 5-325MG 1 EACH TAB PO PRN (20:04)
--- NOTE | 2019-02-16 21:11 | XR ---
EXAMINATION TYPE: XR chest 1V portable DATE OF EXAM: 02/16/2019 COMPARISON: NONE HISTORY: Postop knee surgery. Short of breath. TECHNIQUE: Single view FINDINGS: There is elevated left diaphragm. There is a mild atelectasis left lung base. There is no h eart failure. Heart size is normal. Bony thorax is intact. IMPRESSION: Mild atelectasis left lung base unchanged compared to exam 3 hours ago. Normal heart. Hia kendell hernia unchanged.
[2019-02-16] MEDS: CYCLOBENZAPRINE 10 MG TAB PO SCH (22:49)
--- NOTE | 2019-02-16 23:30 | CONS ---
CONSULTATION DATE OF SERVICE: 02/16/2019 REASON FOR CONSULTATION: Advice regarding PEG tube feeds and history of PE and other multiple medical issues, requested by Dr. Barahona. HISTORY OF PRESENT ILLNESS: This 73-year-old gentleman with a past medical history of multiple medical problems including history of throat cancer, history of DVT, pulmonary embolism, GERD, hypertension, DJD, history of sleep apnea, renal disease, history of joint replacement, history of tonsillectomy, being followed by Dr. Israel in the outpatient setting had a throat cancer in 2018. Subsequently, patient had PEG tube feeds. Currently the patient is receiving PEG tube feeds at nighttime. The patient also had significant multiple infection of the left knee and aspiration was done recently and Dr. Barahona is planning revision tomorrow. The prior exercise tolerance appears to be adequate in this patient with limited mobility. There is no history of chest pain, palpitation, no history of headache, loss of consciousness, seizures, nausea, vomiting, diarrhea. No history of recent cardiac events either. The patient had receiving Lovenox 120 mg subcu at night for treatment of DVT, PE. PAST MEDICAL HISTORY: Past medical history of DVT, GERD, hypertension, sleep apnea, DVT, left knee joint replacement, history of multiple infections, revisions and nicotine dependence. MEDICATIONS: Prior to admission home medications are 1. Senna 1 tablets b.i.d. p.r.n. 2. Prilosec 20 mg p.o. b.i.d. 3. Toprol-XL 25 mg q.h.s. 5. Loratadine 10 mg p.o. daily. 6. Synthroid 25 mcg p.o. 7. [place] 7.5 q.4 p.r.n. 8. Neurontin 100 mg p.o. b.i.d. 9. Flonase 2 sprays daily. 10.Lovenox 120 mg subcutaneously at bedtime. 11.Aspirin 81 mg q.h.s. 12.Zyloprim 100 mg p.o. daily. ALLERGIES: PENICILLIN. FAMILY HISTORY: Breast cancer in the family. SOCIAL HISTORY: Previous history of smoking. No history of current smoking or alcohol intake. REVIEW OF SYSTEMS: ENT mentioned earlier. CARDIOVASCULAR: No angina. RESPIRATION: No cough. GI as mentioned earlier. no dysuria. NERVOUS SYSTEM: As mentioned earlier. ALLERGY/IMMUNOLOGY: No asthma or hayfever. MUSCULOSKELETAL as mentioned earlier. HEMATOLOGY/ONCOLOGY: As mentioned earlier. ENDOCRINE: Hypothyroidism. CONSTITUTIONAL: As mentioned earlier. DERMATOLOGY: Negative. RHEUMATOLOGY negative. PSYCHIATRY as mentioned earlier. PHYSICAL EXAM: Patient is alert, oriented x3. Pulse is 80. Blood pressure 120/93, respiration 20, temperature normal. HEENT: Conjunctivae normal. Oral mucosa moist. Neck is no jugular venous distention. No carotid bruit. No lymph node enlargement. Cardiovascular system: S1, S2 muffled. No S3, no S4. Respiratory: Breath sounds diminished in the bases. A few rhonchi. No crackles. ABDOMEN: Soft, nontender. PEG tube in situ. No mass palpable. LEGS: Significant pain and swelling and limited painful movement of the left knee joint present. NERVOUS SYSTEM: Higher functions as mentioned earlier. Moves all 4 limbs. Mild diffuse weakness. LYMPHATICS: No lymph nodes palpable in the neck, axillae or groin. SKIN: As mentioned earlier. JOINTS: No active deforming arthropathy. LABS: Labs pending at this time. ASSESSMENT: 1. Left knee infection, recurrent for revision. 2. History of recent laryngeal cancer, status post chemoradiation and PEG tube placement with Jevity feeds at nighttime for nutrition. 3. History of deep venous thrombosis on Lovenox 120 mg subcu at night. 4. Gastroesophageal reflux disease. 5. Hypertension. 6. History of deep vein thrombosis. 7. History of degenerative joint disease. 8. History of pulmonary embolism. 9. History of obstructive sleep apnea. 10.History of hypothyroidism. 11.History of tonsillectomy. 12.Remote history of nicotine dependence. 13.FULL CODE. RECOMMENDATIONS AND DISCUSSION: In this 73-year-old gentleman who presented with multiple medical issues, at this time I recommend resume the Jevity feeds, aspiration precautions. I would also recommend hold the Lovenox at this time and resume after surgery. The patient could be resumed in 24-48 hours if there is no significant bleeding. Otherwise continue the rest of medications. Proton pump inhibitors. I would also recommend resume the home medications. We will monitor the patient closely with you and antibiotics, cultures, IV fluids, monitor fluid and electrolytes balance closely. Baseline labs and chest x- ray has been ordered also. The patient is clinically stable and patient will be cleared for surgery . surgery at this time. Otherwise, we will continue to monitor and optimize the above-mentioned medical issues. Further recommendations to follow. The patient may be asked to follow up with Dr. Israel after surgery and we will follow the patient closely with you. Thank you Dr. Barahona for letting us participate in the care this patient. OLIVE / DULCE MARIAN: [id number] / [id number]
[2019-02-17] MEDS: SODIUM CHLORIDE 0.9% 1,000 ML IV SCH ×3 (00:39→16:52)
[2019-02-17] MEDS: LEVOTHYROXINE 25 MCG TAB PO SCH (05:07)
[2019-02-17] MEDS: GABAPENTIN 100 MG CAP PO SCH ×2 (07:48→21:13)
[2019-02-17] MEDS: LORATADINE 10 MG TAB PO SCH (07:48)
[2019-02-17] MEDS: CYCLOBENZAPRINE 10 MG TAB PO SCH ×3 (07:48→21:13)
[2019-02-17] MEDS: PANTOPRAZOLE 40 MG TABLET PO SCH (07:48)
[2019-02-17] MEDS: FLUTICASONE 50MCG/SPRAY NASAL 16GM EA NOSTRIL SCH (07:48)
[2019-02-17] MEDS: ALLOPURINOL 100 MG TAB PO SCH (07:48)
[2019-02-17] MEDS: HYDROcodone/APAP 5-325MG 1 EACH TAB PO PRN ×3 (10:29→23:38)
[2019-02-17] MEDS ORDERED: IV FLUID CONTINUATION 1,000 ML IV ONE (12:02)
[2019-02-17] MEDS ORDERED: NALOXONE 0.4 MG/ML 1 ML VIAL IV PRN (13:45)
[2019-02-17] MEDS ORDERED: DIAZEPAM 5 MG TAB PO PRN (13:45)
[2019-02-17] MEDS ORDERED: LIDOCAINE 1% INJ 10MG/ML (20 ML MDV) ONE (13:46)
[2019-02-17] MEDS ORDERED: PROPOFOL 10 MG/ML 20 ML VIAL IV ONE (13:46)
[2019-02-17] MEDS ORDERED: SUCCINYLCHOLINE CHLORIDE 100 MG/5 ML SYR IV ONE (13:46)
[2019-02-17] MEDS ORDERED: fentaNYL (PF) 50 MCG/ML 2 ML AMP ONE (13:46)
[2019-02-17] MEDS ORDERED: ROCURONIUM BROMIDE 10 MG/ML 10 ML VIAL IV ONE (13:46)
[2019-02-17] MEDS ORDERED: HYDROmorphone (PF) 1 MG/ML ONE (13:46)
[2019-02-17] MEDS ORDERED: NEOSTIGMINE 1 MG/ML 10 ML VIAL ONE (13:46)
[2019-02-17] MEDS ORDERED: GLYCOPYRROLATE 0.2 MG/ML 2 ML VIAL ONE (13:46)
[2019-02-17] MEDS ORDERED: MIDAZOLAM 2 MG/2 ML VIAL ONE (13:46)
--- NOTE | 2019-02-17 14:10 | P.PN ---
Subjective Patient is admitted for septic arthritis of the left knee patient has multiple procedures and then the knee on the left side for his sepsis post knee replacement. Patient is presently on Rocephin 9 all the cultures are so far negative patient will undergo surgical intervention for for her septic knee. And possible revision arthroplasty patient is on PEG tube feedings and does eat by mouth as well. Constitutional: Denied any fatigue denied any fever. Cardio vascular: denied any chest pain, palpitations Gastrointestinal denied any nausea vomiting Pulmonary: Denied any shortness of breath cough Neurologic denied any new focal deficits All inpatient medications were reviewed and appropriate changes in these medications as dictated in the interval history and assessment and plan. Objective - Vital Signs Vital signs: Vital Signs Temp 98.3 F 02/17/19 12:10 Pulse 79 02/17/19 12:10 Resp 17 02/17/19 12:10 BP 100/60 02/17/19 12:10 Pulse Ox 97 02/17/19 12:10 Intake & Output 02/16/19 02/17/19 02/17/19 18:59 06:59 18:59 Intake Total 600 350 Output Total 600 Balance 0 350 Weight 90.265 kg Intake: IV 350 Tube Feeding 600 Output: Urine 600 Other: Voiding Method Urinal Urinal - Exam PHYSICAL EXAMINATION: GENERAL: The patient is alert and oriented x3, not in any acute distress. Well developed, well nourished. HEENT: Pupils are round and equally reacting to light. EOMI. No scleral icterus. No conjunctival pallor. Normocephalic, atraumatic. No pharyngeal erythema. No thyromegaly. CARDIOVASCULAR: S1 and S2 present. No murmurs, rubs, or gallops. PULMONARY: Chest is clear to auscultation, no wheezing or crackles. ABDOMEN: Soft, nontender, nondistended, normoactive bowel sounds. No palpable organomegaly. MUSCULOSKELETAL: No joint swelling or deformity. Left knee swollen patient does have muscle atrophy in the left leg. EXTREMITIES: No cyanosis, clubbing, or pedal edema. NEUROLOGICAL: Gross neurological examination did not reveal any focal deficits. SKIN: No rashes. - Labs CBC & Chem 7: 02/16/19 18:17 02/16/19 18:17 Labs: Abnormal Lab Results - Last 24 Hours (Table) 02/16/19 02/16/19 Range/Units 18:17 18:17 Lymphocytes # 0.4 L (1.0-4.8) k/uL Sodium 134 L (137-145) mmol/L BUN 46 H (9-20) mg/dL Creatinine 1.57 H (0.66-1.25) mg/dL Glucose 105 H (74-99) mg/dL Albumin 3.3 L (3.5-5.0) g/dL Assessment and Plan Plan: -Septic arthritis of the left knee antibiotics as per infectious disease patient appears to depending on his previous cultures probably -History of laryngeal cancer patient has a PEG tube feeding does tolerate by mouth feedings as well today -History of DVT for which patient is on Lovenox -Hypertension -History of obstructive sleep apnea uses BiPAP at home which will be continued -Hypothyroidism
[2019-02-17] MEDS ORDERED: LACTATED RINGERS 1,000 ML IV ONE (14:39)
--- NOTE | 2019-02-17 15:26 | P.OP ---
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 With tobramycin. Anesthesia: spinal Surgeon: Naman Barahona Senior Information Security Engineer #1: Nilda Carroll Estimated Blood Loss (ml): 300 Pathology: other (2) Condition: stable Disposition: PACU Indications for Procedure: this is a 73-year-old gentleman who originally had a total knee arthroplasty performed by Dr. Gatica many years ago.he presented to me in the office with pain and swelling in his knee, and aspirate showed an infected total knee. He was treated with a staged revision with removal of components placement of antibiotic spacer and eventual reimplantation of a total knee after antibiotics. Patient had been doing well and was off his antibiotics when he suddenly experienced pain and swelling in his knee. Patient came in the office as knee was aspirated and aspirate was positive for group B strep. This was the same bacteria as his prior infection.after discussing the surgical and nonsurgical treatment options with her at length I have explained to him that he needs to have another stage I revision with removal of components and placement of antibiotic spacer. This will again be followed by IV antibiotics. He understands this as well as his family and informed consent was obtained. Operative Findings: the operative findings are consistent with an infected left total knee arthroplasty. Description of Procedure: Patient was seen in the preoperative area consent was reviewed and operative site was marked with a skin marker. Patient was then brought to the operating room and given preoperative antibiotics intravenously. A spinal anesthetic was administered by the anesthesia department. A tourniquet was placed on the upper thigh and the lower extremity was prepped and draped in usual sterile fashion A universal timeout was then performed which confirmed the patient's name, surgical site, ALLERGIES, and consent. The lower extremity was then elevated but not exsanguinated and tourniquet was inflated to 250 mmHg. A standard and anterior midline approach to the knee was performed. The skin and subcutaneous tissue was dissected down to the patellar tendon, with the prior scar being excised. A medial parapatellar arthrotomy was then performed. A large amount of purulent fluid was encountered, and this was cultured 2. The knee was then extended, the patellar was everted, and the knee was again flexed. The components were then inspected and grossly were found to be well fixed. The tibial poly-was then removed without incident. Attention was directed to the femur. Using a small oscillating saw, the implant cement i nterface was disrupted, and the femoral component was easily removed with an osteotome and a mallet. There was minimal bone loss encountered. Attention was then directed to the tibia. Again using a small oscillating saw, the implant bone interface was disrupted. The tibial component was an easily removed with an osteotome and a mallet. The undersurface of the tibial component showed very little bone loss. There was very little bone loss from the tibia. Next, the saw was then used to remove the patellar bone and as well. the knee was then copiously irrigated with pulsatile lavage. Trials for the antibiotic spacer were then utilized in order to find the correct size. The trials were then removed. The cut surfaces of bone were then irrigated with pulsatile lavage. The posterior structures were injected with the ropivacaine solution. The knee was also irrigated with Irrisept solution. The components were then opened, the cement was mixed, and the components were then cemented in place. After the cemented hardened. The tourniquet was released, and hemostasis was obtained. A second gram of transexamic acid was given. The knee was again irrigated. The knee was again taken through range of motion and found to be stable throughout all range of motion of 0-110. The fascia was then closed with #1 Vicryl followed by #2 strata fix suture. The subcutaneous tissue was closed with 3-0 Vicryl and aurelio for the skin. The patient was placed in a sterile silver dressing. Patient was then transferred to recovery room in stable condition. The periodicals library assistant LESA Christy was required due the complexity surgery and the need for a skilled surgical garment assembler. She assisted in positioning, draping, retraction, and closure of the wound.
--- NOTE | 2019-02-17 16:11 | XR ---
EXAMINATION TYPE: XR knee limited LT DATE OF EXAM: 02/17/2019 CLINICAL HISTORY: Left knee implant revision. TECHNIQUE: Portable AP and crosstable lateral views of the left knee are obtained immediately postop eratively. COMPARISON prior left knee x-ray November 16, 2018 FINDINGS: There is interval metallic hardware with new radiodense cement material. Slight genu varum positioning is present currently. [facility] osseous structures are demineralized. Moderate to severe dif fuse soft tissue swelling with overlying vertical skin aurelio is noted. IMPRESSION: As above.
[2019-02-17] MEDS: HYDROmorphone 1 MG/ML 1 ML SYRINGE IVP ONE ×2 (16:32→16:43)
[2019-02-17] MEDS: SENNOSIDES-DOCUSATE SODIUM 1 EACH TAB PO SCH (21:13)
[2019-02-17] MEDS: METOPROLOL SUCCINATE (ER) 25 MG TAB.ER.24H PO SCH (21:13)
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
[2019-02-18] MEDS: SODIUM CHLORIDE 0.9% 1,000 ML IV SCH ×2 (03:12→17:38)
[2019-02-18] MEDS: LEVOTHYROXINE 25 MCG TAB PO SCH (05:46)
[2019-02-18] MEDS: HYDROcodone/APAP 5-325MG 1 EACH TAB PO PRN ×3 (05:48→18:54)
--- NOTE | 2019-02-18 08:13 | P.PN ---
Subjective Progress Note Date: 02/18/19 This is a 73-year-old male who is status post stage I revision left total knee arthroplasty with removal of components and placement of antibiotic spacer. Patient states that his pain is controlled today and he denies any new complaints. Patient denies any fever/chills, numbness, weakness, tingling, abdominal pain, shortness of breath or chest pain. Objective - Vital Signs Vital signs: Vital Signs Temp 99.0 F 02/18/19 00:40 Pulse 106 H 02/18/19 00:40 Resp 16 02/18/19 00:40 BP 121/73 02/18/19 00:40 Pulse Ox 98 02/18/19 00:40 Intake & Output 02/17/19 02/18/19 02/18/19 18:59 06:59 18:59 Intake Total 1000 Output Total 600 500 Balance 400 -500 Weight 90.265 kg Intake: IV 1000 Output: Urine 300 500 Estimated Blood Loss 300 Other: Voiding Method Urinal Urinal - Exam Vital signs are stable. Patient is in no acute distress and is alert and oriented 3. Calf is soft and nontender to palpation. Dressing is clean, dry, and intact. Patient has full foot and ankle motion without pain or difficulty. Neurovascular status and circulatory status are intact. - Labs CBC & Chem 7: 02/16/19 18:17 02/16/19 18:17 Labs: Abnormal Lab Results - Last 24 Hours (Table) 02/17/19 02/17/19 Range/Units 22:48 22:48 ESR 62 H (0-15) mm/hr C-Reactive Protein 338.6 H (<10.0) mg/L Microbiology - Last 24 Hours (Table) 02/17/19 15:00 Gram Stain - Preliminary Knee - Left Wound Culture - Preliminary 02/17/19 15:00 Wound Culture - Preliminary Knee - Left 02/17/19 15:00 Anaerobic Culture - Preliminary Knee - Left 02/17/19 15:00 Fungal Culture - Preliminary Knee - Left 02/17/19 15:00 Fungal Culture - Preliminary Knee - Left 02/17/19 15:00 Anaerobic Culture - Preliminary Knee - Left Assessment and Plan Assessment: Status post stage I revision left total knee arthroplasty with removal of components and placement of antibiotic spacer. (1) Infection of total left knee replacement Current Visit: Yes Status: Acute Code(s): T84.54XA - INFECT/INFLM REACTION DUE TO INTERNAL LEFT KNEE PROSTH, INIT SNOMED Code(s): 313256668 Plan: #1 Continue with routine postoperative care and pain control, leave dressing in place for ten days. #2 Anticoagulation with Lovenox. #3 Physical therapy today. Weightbearing as tolerated. #4 Appreciate input from internal medicine and infectious disease. #5 Cultures are pending. Patient will need PICC line placement. #6 Anticipate discharge in the next 48-72 hours.
[2019-02-18 08:18] LABS: Calcium 8.3 mg/dL (8.4-10.2); Potassium 4.7 mmol/L (3.5-5.1)
[2019-02-18 08:22] LABS: Basophils # (A) 0.1 k/uL (0-0.2); Basophils % (A) 2 %; Eosinophils # (A) 0.1 k/uL (0-0.7); Eosinophils % (A) 1 %; HCT 33.6 % (39.0-53.0); HGB 10.7 gm/dL (13.0-17.5); Hypochromasia Slight; Lymphocytes # (A) 0.3 k/uL (1.0-4.8); Lymphocytes % (A) 4 %; MCH 28.9 pg (25.0-35.0); MCHC 31.9 g/dL (31.0-37.0); MCV 90.4 fL (80.0-100.0); Mean Platelet Volume 8.6; Monocytes # (A) 0.5 k/uL (0-1.0); Monocytes % (A) 7 %; Neutrophils # (A) 6.2 k/uL (1.3-7.7); Neutrophils % (A) 85 %; Platelet Count 234 k/uL (150-450); RBC 3.71 m/uL (4.30-5.90); RDW 13.6 % (11.5-15.5); WBC 7.3 k/uL (3.8-10.6)
[2019-02-18] MEDS: FLUTICASONE 50MCG/SPRAY NASAL 16GM EA NOSTRIL SCH (08:25)
[2019-02-18] MEDS: GABAPENTIN 100 MG CAP PO SCH ×2 (08:25→20:53)
[2019-02-18] MEDS: LORATADINE 10 MG TAB PO SCH (08:25)
[2019-02-18] MEDS: CYCLOBENZAPRINE 10 MG TAB PO SCH ×3 (08:25→20:53)
[2019-02-18] MEDS: PANTOPRAZOLE 40 MG TABLET PO SCH (08:25)
[2019-02-18] MEDS: ALLOPURINOL 100 MG TAB PO SCH (08:25)
--- NOTE | 2019-02-18 11:15 | ECHOF ---
Referral Reason:Endocarditis MEASUREMENTS -------- HEIGHT: 177.8 cm WEIGHT: 89.8 kg BP: 121/73 IVSd: 1.4 cm (0.6 - 1.1) LVIDd: 4.0 cm (3.9 - 5.3) LVPWd: 1.3 cm (0.6 - 1.1) IVSs: 1.7 cm LVIDs: 2.4 cm LVPWs: 1.8 cm LAESV Index (A-L): 16.16 ml/m Ao Diam: 4.0 cm (2.0 - 3.7) AV Cusp: 2.5 cm (1.5 - 2.6) LA Diam: 2.9 cm (2.7 - 3.8) MV EXCURSION: 21.171 mm (> 18.000) MV EF SLOPE: 53 mm/s (70 - 150) EPSS: 0.5 cm MV E Eleuterio: 0.69 m/s MV DecT: 237 ms MV A Eleuterio: 0.74 m/s MV E/A Ratio: 0.93 RAP: 5.00 mmHg RVSP: 35.68 mmHg FINDINGS -------- Sinus rhythm with extra systolic beats. This was a technically difficult study with suboptimal views. The left ventricular size is normal. There is moderate concentric left ventricular hypertrophy. O verall left ventricular systolic function is low-normal with, an EF between 50 - 55 %. The diastoli c filling pattern is normal for the age of the patient 9.08. The right ventricle is normal in size. Normal LA size by volume 22+/-6 ml/m2. The right atrial size is normal. Lumason used The aortic valve is trileaflet and appears structurally normal. There is trace mitral regurgitation. Possible Vegetation attached to Amvl The tricuspid valve appears structurally normal. Mild tricuspid regurgitation present. There is m ild pulmonary hypertension. The right ventricular systolic pressure, as measured by Doppler, is 35. 68mmHg. The pulmonic valve is normal. The aortic root and ascending aorta are dilated measuring up to 4.0 cm. IVC Not well visulized. There is a small, generalized pericardial effusion present. CONCLUSIONS -------- 1. Sinus rhythm with extra systolic beats. 2. This was a technically difficult study with suboptimal views. 3. The left ventricular size is normal. 4. There is moderate concentric left ventricular hypertrophy. 5. Overall left ventricular systolic function is low-normal with, an EF between 50 - 55 %. 6. The diastolic filling pattern is normal for the age of the patient 9.08 7. The right ventricle is normal in size. 8. Normal LA size by volume 22+/-6 ml/m2. 9. The right atrial size is normal. 10. Lumason used 11. The aortic valve is trileaflet and appears structurally normal. 12. There is trace mitral regurgitation. 13. Possible Vegetation attached to Amvl 14. The tricuspid valve appears structurally normal. 15. Mild tricuspid regurgitation present. 16. There is mild pulmonary hypertension. 17. The right ventricular systolic pressure, as measured by Doppler, is 35.68mmHg. 18. The pulmonic valve is normal. 19. The aortic root and ascending aorta are dilated measuring up to 4.0 cm. 20. IVC Not well visulized. 21. There is a small, generalized pericardial effusion present. INSULATION BOARD CALENDER OPERATOR: Rosalba Goldman RDCS
--- NOTE | 2019-02-18 14:13 | P.PN ---
Subjective Patient is admitted for septic arthritis of the left knee patient has multiple procedures and then the knee on the left side for his sepsis post knee replacement. Patient is presently on Rocephin 9 all the cultures are so far negative patient will undergo surgical intervention for for her septic knee. And possible revision arthroplasty patient is on PEG tube feedings and does eat by mouth as well. 02/18/2019 She underwent revision arthroplasty yesterday patient is presently on ceftezolin Constitutional: Denied any fatigue denied any fever. Cardio vascular: denied any chest pain, palpitations Gastrointestinal denied any nausea vomiting Pulmonary: Denied any shortness of breath cough Neurologic denied any new focal deficits All inpatient medications were reviewed and appropriate changes in these medications as dictated in the interval history and assessment and plan. Objective - Vital Signs Vital signs: Vital Signs Temp 99.0 F 02/18/19 00:40 Pulse 106 H 02/18/19 00:40 Resp 16 02/18/19 00:40 BP 121/73 02/18/19 00:40 Pulse Ox 98 02/18/19 00:40 Intake & Output 02/17/19 02/18/19 02/18/19 18:59 06:59 18:59 Intake Total 1000 240 Output Total 600 500 Balance 400 -500 240 Weight 90.265 kg Intake: IV 1000 Tube Feeding 240 Output: Urine 300 500 Estimated Blood Loss 300 Other: Voiding Method Urinal Urinal Urinal - Exam PHYSICAL EXAMINATION: GENERAL: The patient is alert and oriented x3, not in any acute distress. Well developed, well nourished. HEENT: Pupils are round and equally reacting to light. EOMI. No scleral icterus. No conjunctival pallor. Normocephalic, atraumatic. No pharyngeal erythema. No thyromegaly. CARDIOVASCULAR: S1 and S2 present. No murmurs, rubs, or gallops. PULMONARY: Chest is clear to auscultation, no wheezing or crackles. ABDOMEN: Soft, nontender, nondistended, normoactive bowel sounds. No palpable organomegaly. MUSCULOSKELETAL: No joint swelling or deformity. Left knee swollen postsurgically packed EXTREMITIES: No cyanosis, clubbing, or pedal edema. NEUROLOGICAL: Gross neurological examination did not reveal any focal deficits. SKIN: No rashes. - Labs CBC & Chem 7: 02/18/19 07:01 02/18/19 07:01 Labs: Abnormal Lab Results - Last 24 Hours (Table) 02/17/19 02/17/19 02/18/19 Range/Units 22:48 22:48 07:01 RBC 3.71 L (4.30-5.90) m/uL Hgb 10.7 L (13.0-17.5) gm/dL Hct 33.6 L (39.0-53.0) % Lymphocytes # 0.3 L (1.0-4.8) k/uL ESR 62 H (0-15) mm/hr BUN (9-20) mg/dL Creatinine (0.66-1.25) mg/dL Glucose (74-99) mg/dL Calcium (8.4-10.2) mg/dL C-Reactive Protein 338.6 H (<10.0) mg/L 02/18/19 Range/Units 07:01 RBC (4.30-5.90) m/uL Hgb (13.0-17.5) gm/dL Hct (39.0-53.0) % Lymphocytes # (1.0-4.8) k/uL ESR (0-15) mm/hr BUN 45 H (9-20) mg/dL Creatinine 1.57 H (0.66-1.25) mg/dL Glucose 176 H (74-99) mg/dL Calcium 8.3 L (8.4-10.2) mg/dL C-Reactive Protein (<10.0) mg/L Microbiology - Last 24 Hours (Table) 02/17/19 15:00 Gram Stain - Preliminary Knee - Left Wound Culture - Preliminary 02/17/19 15:00 Gram Stain - Preliminary Knee - Left Wound Culture - Preliminary 02/17/19 15:00 Anaerobic Culture - Preliminary Knee - Left 02/17/19 15:00 Fungal Culture - Preliminary Knee - Left 02/17/19 15:00 Fungal Culture - Preliminary Knee - Left 02/17/19 15:00 Anaerobic Culture - Preliminary Knee - Left Assessment and Plan Plan: -Septic arthritis of the left knee antibiotics as per infectious disease patient appears to depending on his previous cultures. -History of laryngeal cancer patient has a PEG tube feeding does tolerate by mouth feedings as well . -History of DVT for which patient is on Lovenox -Hypertension -History of obstructive sleep apnea uses BiPAP at home which will be continued -Hypothyroidism
[2019-02-18] MEDS: ENOXAPARIN 120 MG/0.8 ML SYRINGE SQ SCH (15:38)
[2019-02-18] MEDS ORDERED: ALBUTEROL NEBULIZED 2.5 MG/3 ML INHALATION PRN (19:00)
[2019-02-18] MEDS: METOPROLOL SUCCINATE (ER) 25 MG TAB.ER.24H PO SCH (20:53)
[2019-02-18] MEDS: SENNOSIDES-DOCUSATE SODIUM 1 EACH TAB PO SCH (20:53)
--- NOTE | 2019-02-18 23:26 | P.PN ---
Subjective Progress Note Date: 02/18/19 73-year-old male presents to Hospital for evaluation of the sudden onset of pain to his left knee. This pleasant gentleman relates that he underwent a total knee arthroplasty approximately [address] Gatica. 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 The patient was treated with a course of radiation therapy and chemotherapy at an outside institution. Apparently patient developed significant side effects of radiation in that he could not swallow and constantly PEG tube was placed for him to receive his nutrition. The PEG tube remains in place and he continues to use tube feeds at this time, and does relate that he does also eat. He denies a ny difficulty with pain and swelling at this point in time. The patient relates surely before the knee became painful he was doing some work in the yard. He does not recall kneeling and had no acute injury to the knee. He's had no difficulty with sores or ulcerations to the left foot or leg. He c omplains of no discomforts to the leg except at the knee where there was a sudden onset of pain before his presentation. He does relate when the pain started he was seen by his orthopedic surgeons and aspiration was performed. Group B strep was isolated and the patient has been treated with a protracted course of intravenous antibiotic therapy. There was significant improvement of the patient's pain in the inflammatory parameters. He was consequently sent back to orthopedics for further evaluation. Aspiration of the joint occurred in there was evidence of recurrence of the group B strep and constantly he's been broadened to Hospital and the joint has been removed and antibiotic spacer was placed is a step 1 exchange. outpatient culture did have a group B strep. the patient did have reimplantation of the left total knee arthroplasty after completion of a protracted course of antibiotic therapy for the group B strep infection. Before reimplantation he did have aspiration of the joint that showed no evidence of any infection. At the time of surgery pathology did not reveal evidence of any significant inflammation to the joint. The patient has done well over the last several months from the surgery due to the sudden onset of the painful swelling to his knee. He presented to his orthopedic office where there was evidence of an effusion aspiration showed evidence of a wisnton late milk consistent material with evidence of gram-positive cocci. He knows he was admitted to hospital for extraction of the total knee arthroplasty in antibiotic that has been performed. Other than pain to the procedure the patient is just discouraged if he ongoing difficulties getting his very protracted past medical troubles. 02/18/2019 patient is postoperative feeling somewhat better today. The pain at surgical site he is feeling better. He is tolerating tube feeds well. And has been able to with a walker ambulatory to the restroom. He has not of the outpatient culture shows evidence of the group B strep. Echocardiogram was performed and reveals evidence of potential vegetation on the mitral valve. Objective - Vital Signs Vital signs: Vital Signs Temp 98.3 F 02/18/19 19:09 Pulse 75 02/18/19 19:09 Resp 17 02/18/19 19:09 BP 101/64 02/18/19 19:09 Pulse Ox 97 02/18/19 19:09 Intake & Output 02/18/19 02/18/19 02/19/19 06:59 18:59 06:59 Intake Total 240 Output Total 500 Balance -500 240 Weight 90.265 kg Intake: Tube Feeding 240 Output: Urine 500 Other: Voiding Method Urinal Urinal - Exam Pleasant 73-year-old male, has some complaints of pain to the left knee area HEENT: Anicteric conjunctiva are pink and moist nasal mucosa grossly intact without significant lesions, there is no thrush. no visualized mass in the oral cavity no thrush Neck: The neck is supple without significant lymphadenopathy or thyromegaly. no palpable mass Lungs: medical bilateral air entry with few expiratory wheezes without yuriy bronchial sounds with dullness or egophony Heart: Regular rate and rhythm with an audible S1-S2, no S3 no S4. There is no significant murmur click or rub, PMI was nondisplaced. Abdomen: Positive bowel sounds soft and nontender without palpable masses or organomegaly. There was no guarding or rebound.PEG tube site is intact Extremities: The upper extremities have excellent pulses they are symmetric, no significant petechiae or telangiectasia. No splinter hemorrhages were noted. the right lower extremities without acute abnormalities. the left knee reveals evidence of the dressing which is not removed and there is no evidence of any drainage through the current dressing. The foot is evaluated is evidence of adequate warmth, adequate capillary refill, no open ulcerations or lesions. The foot is not cool and no necrotic ulcers are seen Neuro: Awake alert oriented to person place and time. There are no acute new gross focal sensory motor deficits. - Labs CBC & Chem 7: 02/18/19 07:01 02/18/19 07:01 Labs: Abnormal Lab Results - Last 24 Hours (Table) 02/17/19 02/17/19 02/18/19 Range/Units 22:48 22:48 07:01 RBC 3.71 L (4.30-5.90) m/uL Hgb 10.7 L (13.0-17.5) gm/dL Hct 33.6 L (39.0-53.0) % Lymphocytes # 0.3 L (1.0-4.8) k/uL ESR 62 H (0-15) mm/hr BUN (9-20) mg/dL Creatinine (0.66-1.25) mg/dL Glucose (74-99) mg/dL Calcium (8.4-10.2) mg/dL C-Reactive Protein 338.6 H (<10.0) mg/L 02/18/19 Range/Units 07:01 RBC (4.30-5.90) m/uL Hgb (13.0-17.5) gm/dL Hct (39.0-53.0) % Lymphocytes # (1.0-4.8) k/uL ESR (0-15) mm/hr BUN 45 H (9-20) mg/dL Creatinine 1.57 H (0.66-1.25) mg/dL Glucose 176 H (74-99) mg/dL Calcium 8.3 L (8.4-10.2) mg/dL C-Reactive Protein (<10.0) mg/L Microbiology - Last 24 Hours (Table) 02/17/19 15:00 Gram Stain - Preliminary Knee - Left Wound Culture - Preliminary Strep agalactiae - (group b) 02/17/19 15:00 Gram Stain - Preliminary Knee - Left Wound Culture - Preliminary Strep agalactiae - (group b) 02/17/19 15:00 Anaerobic Culture - Preliminary Knee - Left 02/17/19 15:00 Fungal Culture - Preliminary Knee - Left 02/17/19 15:00 Fungal Culture - Preliminary Knee - Left 02/17/19 15:00 Anaerobic Culture - Preliminary Knee - Left Laboratory Results WBC 7.3 k/uL (3.8-10.6) 02/18/19 07:01 RBC 3.71 m/uL (4.30-5.90) L 02/18/19 07:01 Hgb 10.7 gm/dL (13.0-17.5) L 02/18/19 07:01 Hct 33.6 % (39.0-53.0) L 02/18/19 07:01 MCV 90.4 fL (80.0-100.0) 02/18/19 07:01 MCH 28.9 pg (25.0-35.0) 02/18/19 07:01 MCHC 31.9 g/dL (31.0-37.0) 02/18/19 07:01 RDW 13.6 % (11.5-15.5) 02/18/19 07:01 Plt Count 234 k/uL (150-450) 02/18/19 07:01 Neutrophils % 85 % 02/18/19 07:01 Lymphocytes % 4 % 02/18/19 07:01 Monocytes % 7 % 02/18/19 07:01 Eosinophils % 1 % 02/18/19 07:01 Basophils % 2 % 02/18/19 07:01 Neutrophils # 6.2 k/uL (1.3-7.7) 02/18/19 07:01 Lymphocytes # 0.3 k/uL (1.0-4.8) L 02/18/19 07:01 Monocytes # 0.5 k/uL (0-1.0) 02/18/19 07:01 Eosinophils # 0.1 k/uL (0-0.7) 02/18/19 07:01 Basophils # 0.1 k/uL (0-0.2) 02/18/19 07:01 Hypochromasia Slight 02/18/19 07:01 ESR 62 mm/hr (0-15) H 02/17/19 22:48 Sodium 139 mmol/L (137-145) 02/18/19 07:01 Potassium 4.7 mmol/L (3.5-5.1) 02/18/19 07:01 Chloride 104 mmol/L (98-107) 02/18/19 07:01 Carbon Dioxide 28 mmol/L (22-30) 02/18/19 07:01 Anion Gap 7 mmol/L 02/18/19 07:01 BUN 45 mg/dL (9-20) H 02/18/19 07:01 Creatinine 1.57 mg/dL (0.66-1.25) H 02/18/19 07:01 Est GFR (CKD-EPI)AfAm 50 (>60 ml/min/1.73 sqM) 02/18/19 07:01 Est GFR (CKD-EPI)NonAf 44 (>60 ml/min/1.73 sqM) 02/18/19 07:01 Glucose 176 mg/dL (74-99) H 02/18/19 07:01 Calcium 8.3 mg/dL (8.4-10.2) L 02/18/19 07:01 Total Bilirubin 0.7 mg/dL (0.2-1.3) 02/16/19 18:17 AST 31 U/L (17-59) 02/16/19 18:17 ALT 39 U/L (4-49) 02/16/19 18:17 Alkaline Phosphatase 78 U/L (38-126) 02/16/19 18:17 Troponin I <0.012 ng/mL (0.000-0.034) 02/17/19 06:56 C-Reactive Protein 338.6 mg/L (<10.0) H 02/17/19 22:48 Total Protein 6.6 g/dL (6.3-8.2) 02/16/19 18:17 Albumin 3.3 g/dL (3.5-5.0) L 02/16/19 18:17 Blood Type A Positive 02/14/19 14:58 Blood Type Recheck A Pos 02/14/19 14:58 Bld Type Recheck Status No 02/14/19 14:58 Antibody Screen NEGATIVE 02/14/19 14:58 Spec Expiration Date 02/19/2019 - 3161 02/14/19 14:58 Microbiology 02/17/19 15:00 Knee - Left Gram Stain - Preliminary 02/17/19 15:00 Knee - Left Wound Culture - Preliminary Strep agalactiae - (group b) 02/17/19 15:00 Knee - Left Gram Stain - Preliminary 02/17/19 15:00 Knee - Left Wound Culture - Preliminary Strep agalactiae - (group b) 02/17/19 15:00 Knee - Left Anaerobic Culture - Preliminary 02/17/19 15:00 Knee - Left Fungal Culture - Preliminary 02/17/19 15:00 Knee - Left Fungal Culture - Preliminary 02/17/19 15:00 Knee - Left Anaerobic Culture - Preliminary Assessment and Plan (1) Group B streptococcal infection Current Visit: No Status: Acute Code(s): A49.1 - STREPTOCOCCAL INFECTION, UNSPECIFIED SITE SNOMED Code(s): 981160012 (2) Infection of total left knee replacement Narrative/Plan: 73-year-old male with a complex past medical history including as well as for carcinoma which has been treated with prior surgical intervention with chemoradiation. He continues to have his PEG tube in place for his nutritional support. His weight is been stable and he said modestly well over time. However developed significant pain and swelling to his left knee earlier in the year. A group B streptococcal infection was found. The knee was extracted, antibiotic spacer was placed and he received a protracted course of antibiotic therapy. Once he had improvement he then was evaluated and had aspiration of the joints with evidence of no abnormalities. At the time of reimplantation pathology showed no evidence of any acute inflammation in the total knee arthroplasty was reimplanted. Now 3 months later she has again group B streptococcal infection of that joint. The patient is a complex host and consequently evaluation for endocarditis is being requested by an echocardiogram. Blood cultures are requested. Antibiotic therapy with Rocephin 2 g a day is an ideal choice at this time. During his last treatment he had to come to [facility] daily for his infusions. We'll again ask case management to [facility] to determine if there is any option for this at his home. the patient is in only 1 fever during this stay, likely some immunocompromised from his history of cancer. Once blood cultures are negative IV access will be placed and his outpatient co urse will be solidified. 02/18/2019 the patient has had improvement of his status, is not having fevers and pain is stable postoperative. The transverse thoracic echocardiogram shows evidence of potential vegetation on the mitral valve and constantly will ask for cardiology to evaluate for a JENNIFER if they believe is indicated. Antibiotic therapy should be adequate with Rocephin given the culture from the outpatient setting as well as now inpatient with group B strep. Once we have negative blood cultures available to place an IV catheter such as a PICC line for his outpatient intravenous antibiotic therapy. Prescription dispensed [place] the [place]. Current Visit: Yes Status: Acute Code(s): T84.54XA - INFECT/INFLM REACTION DUE TO INTERNAL LEFT KNEE PROSTH, INIT SNOMED Code(s): 279352110 (3) Squamous cell carcinoma of tonsil Current Visit: No Status: Acute Code(s): C09.9 - MALIGNANT NEOPLASM OF TONSIL, UNSPECIFIED SNOMED Code(s): 429847163 (4) Status post revision of total replacement of left knee Current Visit: No Status: Acute Code(s): Z96.652 - PRESENCE OF LEFT ARTIFICIAL KNEE JOINT SNOMED Code(s): 617051242162397
[2019-02-19] MEDS: HYDROcodone/APAP 5-325MG 1 EACH TAB PO PRN ×4 (01:06→16:58)
[2019-02-19] MEDS: LEVOTHYROXINE 25 MCG TAB PO SCH (06:06)
[2019-02-19] MEDS: SODIUM CHLORIDE 0.9% 1,000 ML IV SCH (06:08)
[2019-02-19] MEDS: ALLOPURINOL 100 MG TAB PO SCH (07:31)
[2019-02-19] MEDS: FLUTICASONE 50MCG/SPRAY NASAL 16GM EA NOSTRIL SCH (07:31)
[2019-02-19] MEDS: PANTOPRAZOLE 40 MG TABLET PO SCH (07:31)
[2019-02-19] MEDS: GABAPENTIN 100 MG CAP PO SCH ×2 (07:31→20:33)
[2019-02-19] MEDS: LORATADINE 10 MG TAB PO SCH (07:31)
[2019-02-19] MEDS: CYCLOBENZAPRINE 10 MG TAB PO SCH ×3 (07:31→20:33)
[2019-02-19] MEDS ORDERED: diphenhydrAMINE 25 MG CAP PO PRN (10:58)
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
[2019-02-19] MEDS: ENOXAPARIN 120 MG/0.8 ML SYRINGE SQ SCH (16:05)
[2019-02-19] MEDS ORDERED: diphenhydrAMINE 25 MG CAP PO STA (16:32)
--- NOTE | 2019-02-19 16:38 | P.PN ---
Subjective Progress Note Date: 02/19/19 Principal diagnosis: Septic left knee s/p TKA Patient is a 73-year-old male seen at bedside this am. He is status post stage I revision left total knee arthroplasty with removal of components and placement of antibiotic spacer, POD #2. He is being followed by infectious disease and on IV Rocephin. He is also being followed by IM and cardiology. Patient states that his pain is controlled today and he denies any new complaints.He denies numbness , tingling, calf pain, fever, chills, chest pain or shortness of breath. Objective - Vital Signs Vital signs: Vital Signs Temp 98.5 F 02/19/19 15:00 Pulse 90 02/19/19 15:00 Resp 16 02/19/19 15:00 BP 111/63 02/19/19 15:00 Pulse Ox 94 L 02/19/19 15:00 Intake & Output 02/18/19 02/19/19 02/19/19 18:59 06:59 18:59 Intake Total 240 2375 Output Total 780 Balance 240 1595 Weight 90.265 kg 70 kg Intake: Intake, IV Titration 735 Amount Sodium Chloride 0.9% 1, 735 000 ml @ 70 mls/hr IV . [id number] [facility] Rx#:[id number] Oral 200 Tube Feeding 240 1380 Other 60 Output: Urine 780 Other: Voiding Method Urinal Urinal Urinal # Voids 1 - Exam Vital signs are stable. Patient is in no acute distress and is alert and oriented 3. Calf is soft and nontender to palpation. There is swelling at the knee as expected. No increased erythema. Dressing is clean, dry, and intact. Patient has full foot and ankle motion without pain or difficulty. Neurovascular status with motor and sensation is intact as well as 2+ DP pulses and less than 2 swec cap refill present. - Constitutional General appearance: Present: no acute distress - Labs CBC & Chem 7: 02/18/19 07:01 02/18/19 07:01 Labs: Microbiology - Last 24 Hours (Table) 02/17/19 22:48 Blood Culture - Preliminary Blood No Growth after 24 hours 02/17/19 22:56 Blood Culture - Preliminary Blood No Growth after 24 hours 02/17/19 15:00 Gram Stain - Preliminary Knee - Left Wound Culture - Preliminary Strep agalactiae - (group b) 02/17/19 15:00 Gram Stain - Preliminary Knee - Left Wound Culture - Preliminary Strep agalactiae - (group b) Assessment and Plan (1) Infection of total left knee replacement Narrative/Plan: He will continue with routine postoperative care including pain control, wound care with dressing to be left in place for 10 days, medical management, DVT prophylaxis, IV antibiotics per infectious disease and cardiology manisha mmendations. Expect discharge when cleared by ID and cardiology. Current Visit: Yes Status: Acute Priority: High Code(s): T84.54XA - INFECT/INFLM REACTION DUE TO INTERNAL LEFT KNEE PROSTH, INIT SNOMED Code(s): 097889253 Time with Patient: Less than 30
[2019-02-19] MEDS ORDERED: methylPREDNISolone SOD SUCCI 125 MG/2 ML VIAL IV STA (17:44)
[2019-02-19] MEDS: SENNOSIDES-DOCUSATE SODIUM 1 EACH TAB PO SCH (20:33)
[2019-02-19] MEDS: METOPROLOL SUCCINATE (ER) 25 MG TAB.ER.24H PO SCH (20:33)
[2019-02-19] MEDS: VANCOMYCIN 1,250 MG in SODIUM CHLORIDE 0.9% 250 ML IVPB SCH (22:15)
--- NOTE | 2019-02-19 22:28 | PN ---
PROGRESS NOTE DATE OF SERVICE: 02/19/2019 REASON FOR FOLLOWUP: 1. Rash. 2. Left knee septic arthritis. HISTORY OF PRESENT ILLNESS: The patient is a 73-year-old male who has been electively admitted to hospital on 02/13/2019 for a left knee excisional arthroplasty and placement of antibiotics spacer secondary to left knee infection with group B strep. The patient blood cultures have been negative so far. Patient is currently being treated with Rocephin 2 g daily. The patient has developed extensive rash involving most of his body, especially the thighs and the extremities and the patient complaining of severe itching associated with it. The RN earlier contacted Medical Services, who added Benadryl and advised to continue with antibiotics. The patient currently has not received any other medication and only 1 dose of Dilaudid. Apparently the rash started before that. The patient denies having any tongue swelling or lesion in his mouth or any difficulty breathing. Pain to the left knee still sharp, excruciating, mostly postoperative but the patient with intensity about 5 out of 10 with no radiation. The patient RN did call me to evaluate the patient. I was covering for Dr. Ramey. REVIEW OF SYSTEMS: Positive points have been mentioned in HPI. Rest of review of systems negative. Past medical and surgical history reviewed. Medication reviewed. PHYSICAL EXAMINATION: His blood pressure is 111/63 with a pulse of 90, temperature 98.5. He is 94% on room air. General description is an elderly male lying in bed in no distress. HEENT examination is slight pallor. No scleral icterus. Oral mucosa membranes are moist. No mucosal LUNGS: Unlabored breathing. Clear to auscultation anteriorly. No wheeze or crackles. HEART S1, S2. Regular rate and rhythm. ABDOMEN: Soft, no tenderness. Examination of the extremities shows extensive maculopapular rash currently with no blistering or any raised formation. MUSCULOSKELETAL: Left knee is currently dressed up. No obvious drainage on the dressing. LABS: Hemoglobin is 10.7, white count 7.3. Sedimentation rate of 62 with BUN of 45, creatinine 1.57. CRP is 338.6. Blood culture negative. Knee culture positive for group B strep. DIAGNOSTIC IMPRESSION/PLAN: Patient with extensive rash in this patient who did have history of PENICILLIN ALLERGY, more likely secondary to rash now related to his Rocephin. At this point we will discontinue the Rocephin and start the patient on vancomycin pharmacy to dose target of 15. We will need to monitor his kidney function very closely as the patient did have borderline kidney function at 1 dose of Solu-Medrol because of extensive rash and continue with Benadryl. MMODL / IJN: [id number] /
[2019-02-19] MEDS ORDERED: diphenhydrAMINE 50 MG/ML 1 ML VIAL IVP PRN (23:15)
[2019-02-20] MEDS: HYDROcodone/APAP 5-325MG 1 EACH TAB PO PRN ×3 (06:06→16:54)
[2019-02-20] MEDS: LEVOTHYROXINE 25 MCG TAB PO SCH (06:06)
[2019-02-20 06:49] LABS: Basophils % (A) 0 %; Eosinophils % (A) 0 %; Hypochromasia Moderate; Lymphocytes # (A) 0.3 k/uL (1.0-4.8); Lymphocytes % (A) 8 %; MCH 28.8 pg (25.0-35.0); MCHC 31.3 g/dL (31.0-37.0); Mean Platelet Volume 8.5; Monocytes # (A) 0.1 k/uL (0-1.0); Monocytes % (A) 1 %; Neutrophils # (A) 4.1 k/uL (1.3-7.7); Neutrophils % (A) 90 %; Platelet Count 261 k/uL (150-450); RBC 3.47 m/uL (4.30-5.90); RDW 13.5 % (11.5-15.5); WBC 4.5 k/uL (3.8-10.6)
[2019-02-20] MEDS ORDERED: VANCOMYCIN IV PER PHARMACY 1 EACH MISC MISCELLANE PRN (07:00)
[2019-02-20] MEDS: PANTOPRAZOLE 40 MG TABLET PO SCH (07:47)
[2019-02-20] MEDS: CYCLOBENZAPRINE 10 MG TAB PO SCH ×3 (07:47→20:12)
[2019-02-20] MEDS: GABAPENTIN 100 MG CAP PO SCH ×2 (07:47→20:11)
[2019-02-20] MEDS: LORATADINE 10 MG TAB PO SCH (07:47)
[2019-02-20] MEDS: FLUTICASONE 50MCG/SPRAY NASAL 16GM EA NOSTRIL SCH (07:47)
[2019-02-20] MEDS: ALLOPURINOL 100 MG TAB PO SCH (07:47)
--- NOTE | 2019-02-20 09:33 | P.PN ---
Subjective Progress Note Date: 02/19/19 Patient is admitted for septic arthritis of the left knee patient has multiple procedures and then the knee on the left side for his sepsis post knee replacement. Patient is presently on Rocephin 9 all the cultures are so far negative patient will undergo surgical intervention for for her septic knee. An d possible revision arthroplasty patient is on PEG tube feedings and does eat by mouth as well. 02/18/2019 She underwent revision arthroplasty yesterday patient is presently on ceftezolin 02/19/2019 Patient started having a rash which appears to be ALLERGIC reaction to unknown medication that was started except for patient was switched to Rocephin although patient did receive Rocephin in the past and patient was another cephalosporin and to less today my suspicion is low that the this antibiotic is causing problems because of which I continued the medication but later in the day his rash worsened because of which I held the the antibiotic and infectious disease was notified. Constitutional: Denied any fatigue denied any fever. Cardio vascular: denied any chest pain, palpitations Gastrointestinal denied any nausea vomiting Pulmonary: Denied any shortness of breath cough Neurologic denied any new focal deficits All inpatient medications were reviewed and appropriate changes in these medications as dictated in the interval history and assessment and plan. Objective - Vital Signs Vital signs: Vital Signs Temp 97.7 F 02/20/19 07:25 Pulse 69 02/20/19 07:25 Resp 18 02/20/19 07:40 BP 104/68 02/20/19 07:25 Pulse Ox 98 02/20/19 07:25 Intake & Output 02/19/19 02/20/19 02/20/19 18:59 06:59 18:59 Output Total 400 Balance -400 Weight 70 kg Output: Urine 400 Other: Voiding Method Urinal Urinal Urinal - Exam PHYSICAL EXAMINATION: GENERAL: The patient is alert and oriented x3, not in any acute distress. Well developed, well nourished. HEENT: Pupils are round and equally reacting to light. EOMI. No scleral icterus. No conjunctival pallor. Normocephalic, atraumatic. No pharyngeal erythema. No thyromegaly. CARDIOVASCULAR: S1 and S2 present. No murmurs, rubs, or gallops. PULMONARY: Chest is clear to auscultation, no wheezing or crackles. ABDOMEN: Soft, nontender, nondistended, normoactive bowel sounds. No palpable organomegaly. MUSCULOSKELETAL: No joint swelling or deformity. Left knee swollen postsurg ically packed EXTREMITIES: No cyanosis, clubbing, or pedal edema. NEUROLOGICAL: Gross neurological examination did not reveal any focal deficits. SKIN: Mild diffuse ALLERGIC rash - Labs CBC & Chem 7: 02/20/19 06:19 02/20/19 06:19 Labs: Abnormal Lab Results - Last 24 Hours (Table) 02/20/19 Range/Units 06:19 RBC 3.47 L (4.30-5.90) m/uL Hgb 10.0 L (13.0-17.5) gm/dL Hct 32.0 L (39.0-53.0) % Lymphocytes # 0.3 L (1.0-4.8) k/uL Microbiology - Last 24 Hours (Table) 02/17/19 22:48 Blood Culture - Preliminary Blood No Growth after 48 hours 02/17/19 22:56 Blood Culture - Preliminary Blood No Growth after 48 hours 02/17/19 15:00 Anaerobic Culture - Preliminary Knee - Left 02/17/19 15:00 Anaerobic Culture - Preliminary Knee - Left 02/17/19 15:00 Gram Stain - Final Knee - Left Wound Culture - Final Strep agalactiae - (group b) 02/17/19 15:00 Gram Stain - Final Knee - Left Wound Culture - Final Strep agalactiae - (group b) Assessment and Plan Plan: -Septic arthritis of the left knee antibiotics as per infectious disease patient appears to depending on his previous cultures. -Possible ALLERGIC reaction unsure whether Rocephin is doing that further management as mentioned in the interval history -History of laryngeal cancer patient has a PEG tube feeding does tolerate by mouth feedings as well . -History of DVT for which patient is on Lovenox -Hypertension -History of obstructive sleep apnea uses BiPAP at home which will be continued -Hypothyroidism
--- NOTE | 2019-02-20 11:14 | P.PN ---
Subjective Progress Note Date: 02/20/19 Principal diagnosis: Septic left knee s/p TKA Patient is a 73-year-old male seen at bedside this am. He is status post stage I revision left total knee arthroplasty with removal of components and placement of antibiotic spacer, POD #3. He is being followed by infectious disease and on IV antibiotics. He is also being followed by IM and cardiology. Patient states that his pain is controlled today and he denies any new complaints. He denies numbness , tingling, calf pain, fever, chills, chest pain or shortness of breath. Objective - Vital Signs Vital signs: Vital Signs Temp 97.7 F 02/20/19 07:25 Pulse 69 02/20/19 07:25 Resp 18 02/20/19 07:40 BP 104/68 02/20/19 07:25 Pulse Ox 98 02/20/19 07:25 Intake & Output 02/19/19 02/20/19 02/20/19 18:59 06:59 18:59 Output Total 400 Balance -400 Weight 70 kg Output: Urine 400 Other: Voiding Method Urinal Urinal Urinal - Exam Vital signs are stable. Patient is in no acute distress and is alert and oriented 3. Calf is soft and nontender to palpation. There is swelling at the knee as expected. No increased erythema. Dressing is clean, dry, and intact. P atient has full foot and ankle motion without pain or difficulty. Neurovascular status with motor and sensation is intact throughout left leg as well as 2+ DP pulses and less than 2 sec cap refill present. - Constitutional General appearance: Present: no acute distress - Labs CBC & Chem 7: 02/20/19 06:19 02/20/19 06:19 Labs: Abnormal Lab Results - Last 24 Hours (Table) 02/20/19 Range/Units 06:19 RBC 3.47 L (4.30-5.90) m/uL Hgb 10.0 L (13.0-17.5) gm/dL Hct 32.0 L (39.0-53.0) % Lymphocytes # 0.3 L (1.0-4.8) k/uL Microbiology - Last 24 Hours (Table) 02/17/19 22:48 Blood Culture - Preliminary Blood No Growth after 48 hours 02/17/19 22:56 Blood Culture - Preliminary Blood No Growth after 48 hours 02/17/19 15:00 Anaerobic Culture - Preliminary Knee - Left 02/17/19 15:00 Anaerobic Culture - Preliminary Knee - Left 02/17/19 15:00 Gram Stain - Final Knee - Left Wound Culture - Final Strep agalactiae - (group b) 02/17/19 15:00 Gram Stain - Final Knee - Left Wound Culture - Final Strep agalactiae - (group b) Assessment and Plan (1) Infection of total left knee replacement Narrative/Plan: He will continue with routine postoperative care including pain control, wound care with dressing to be left in place for 10 days, medical management, DVT prophylaxis, IV antibiotics per infectious disease and cardiology recommendations. Expect discharge when cleared by ID and cardiology. Current Visit: Yes Status: Acute Priority: High Code(s): T84.54XA - INFECT/INFLM REACTION DUE TO INTERNAL LEFT KNEE PROSTH, INIT SNOMED Code(s): 917238914 Time with Patient: Less than 30
--- NOTE | 2019-02-20 11:42 | P.PN ---
Subjective Patient is admitted for septic arthritis of the left knee patient has multiple procedures and then the knee on the left side for his sepsis post knee replacement. Patient is presently on Rocephin 9 all the cultures are so far negative patient will undergo surgical intervention for for her septic knee. And possible revision arthroplasty patient is on PEG tube feedings and does eat by mouth as well. 02/18/2019 She underwent revision arthroplasty yesterday patient is presently on ceftezolin 02/19/2019 Patient started having a rash which appears to be ALLERGIC reaction to unknown medication that was started except for patient was switched to Rocephin although patient did receive Rocephin in the past and patient was another cephalosporin and to less today my suspicion is low that the this antibiotic is causing problems because of which I continued the medication but later in the day his rash worsened because of which I held the the antibiotic and infectious disease was notified. 02/20/2019 Patient's ALLERGIC reaction resolved after discontinue additional Rocephin patient was started on vancomycin creatinine is 1.0 IV fluids were discontinued yesterday because of desaturation requirement approximately skin he walks in and see if he desaturates again we'll obtain a chest x-ray. Patient received Solu- Medrol with improved rash. Constitutional: Denied any fatigue denied any fever. Cardio vascular: denied any chest pain, palpitations Gastrointestinal denied any nausea vomiting Pulmonary: Denied any shortness of breath cough Neurologic denied any new focal deficits All inpatient medications were reviewed and appropriate changes in these medications as dictated in the interval history and assessment and plan. Objective - Vital Signs Vital signs: Vital Signs Temp 97.7 F 02/20/19 07:25 Pulse 69 02/20/19 07:25 Resp 18 02/20/19 07:40 BP 104/68 02/20/19 07:25 Pulse Ox 98 02/20/19 07:25 Intake & Output 02/19/19 02/20/19 02/20/19 18:59 06:59 18:59 Output Total 400 Balance -400 Weight 70 kg Output: Urine 400 Other: Voiding Method Urinal Urinal Urinal - Exam PHYSICAL EXAMINATION: GENERAL: The patient is alert and oriented x3, not in any acute distress. Well developed, well nourished. HEENT: Pupils are round and equally reacting to light. EOMI. No scleral icterus. No conjunctival pallor. Normocephalic, atraumatic. No pharyngeal erythema. No thyromegaly. CARDIOVASCULAR: S1 and S2 present. No murmurs, rubs, or gallops. PULMONARY: Chest is clear to auscultation, no wheezing or crackles. ABDOMEN: Soft, nontender, nondistended, normoactive bowel sounds. No palpable organomegaly. MUSCULOSKELETAL: No joint swelling or deformity. Left knee swollen postsurgically packed EXTREMITIES: No cyanosis, clubbing, or pedal edema. NEUROLOGICAL: Gross neurological examination did not reveal any focal deficits. SKIN: ALLERGIC rash resolved - Labs CBC & Chem 7: 02/20/19 06:19 02/20/19 06:19 Labs: Abnormal Lab Results - Last 24 Hours (Table) 02/20/19 Range/Units 06:19 RBC 3.47 L (4.30-5.90) m/uL Hgb 10.0 L (13.0-17.5) gm/dL Hct 32.0 L (39.0-53.0) % Lymphocytes # 0.3 L (1.0-4.8) k/uL Microbiology - Last 24 Hours (Table) 02/17/19 22:48 Blood Culture - Preliminary Blood No Growth after 48 hours 02/17/19 22:56 Blood Culture - Preliminary Blood No Growth after 48 hours 02/17/19 15:00 Anaerobic Culture - Preliminary Knee - Left 02/17/19 15:00 Anaerobic Culture - Preliminary Knee - Left 02/17/19 15:00 Gram Stain - Final Knee - Left Wound Culture - Final Strep agalactiae - (group b) 02/17/19 15:00 Gram Stain - Final Knee - Left Wound Culture - Final Strep agalactiae - (group b) Assessment and Plan Plan: -Septic arthritis of the left knee antibiotics as per infectious disease patient appears to depending on his previous cultures. Patient is being evaluated for transesophageal echocardiogram by cardiology because of multiple infections in the knee. Although patient has radiation to his neck because of which the will not be possible -Possible ALLERGIC to Rocephin patient was switched to vancomycin with monitoring of kidney function. -History of laryngeal cancer patient has a PEG tube feeding does tolerate by mouth feedings as well . -History of DVT for which patient is on Lovenox -Hypertension -History of obstructive sleep apnea uses BiPAP at home which will be continued -Hypothyroidism
--- NOTE | 2019-02-20 12:42 | P.PN ---
Subjective Progress Note Date: 02/20/19 This is 73-year-old gentleman is being treated for infection in the knee. We're asked to see the patient to rule out possibility of endocarditis. Transthoracic echocardiogram was described as showing possible vegetation on the mitral valve. I discussed with the patient about doing a JENNIFER examination. Patient has history of previous throat cancer and has received radiation therapy. He claims that he doesn't have any problem swallowing. However, he does have by mouth that creates some problem with swallowing. Patient doesn't have a fever or white count elevation. I will discuss with Dr. Ramey again for the need to do JENNIFER examination. If it is necessary. We'll proceed with the procedure with caution because of his previous history. Objective - Vital Signs Vital signs: Vital Signs Temp 97.7 F 02/20/19 07:25 Pulse 69 02/20/19 07:25 Resp 18 02/20/19 07:40 BP 104/68 02/20/19 07:25 Pulse Ox 98 02/20/19 07:25 Intake & Output 02/19/19 02/20/19 02/20/19 18:59 06:59 18:59 Output Total 400 Balance -400 Weight 70 kg Output: Urine 400 Other: Voiding Method Urinal Urinal Urinal - Exam GENERAL EXAM: Patient is alert and oriented and doesn't appear to be in any acute distress HEENT: Normocephalic. Normal reaction of pupils, equal size, normal range of extraocular motion. No erythema or exudates in the throat. NECK: No masses, no nuchal rigidity. CHEST: No chest wall deformity. LUNGS: Equal air entry with no crackles or wheeze. HEART: S1 and S2 normal with no audible mumurs or gallops. Regular rhythm, femorals equal on both sides.. ABDOMEN: No hepatosplenomegaly, normal bowel sounds, no guarding or rigidity. SKIN: No rashes CENTRAL NERVOUS SYSTEM: No focal deficits. EXTREMITIES: No cyanosis, clubbing or edema. - Labs CBC & Chem 7: 02/20/19 06:19 02/20/19 06:19 Labs: Abnormal Lab Results - Last 24 Hours (Table) 02/20/19 Range/Units 06:19 RBC 3.47 L (4.30-5.90) m/uL Hgb 10.0 L (13.0-17.5) gm/dL Hct 32.0 L (39.0-53.0) % Lymphocytes # 0.3 L (1.0-4.8) k/uL Microbiology - Last 24 Hours (Table) 02/17/19 22:48 Blood Culture - Preliminary Blood No Growth after 48 hours 02/17/19 22:56 Blood Culture - Preliminary Blood No Growth after 48 hours 02/17/19 15:00 Anaerobic Culture - Preliminary Knee - Left 02/17/19 15:00 Anaerobic Culture - Preliminary Knee - Left 02/17/19 15:00 Gram Stain - Final Knee - Left Wound Culture - Final Strep agalactiae - (group b) 02/17/19 15:00 Gram Stain - Final Knee - Left Wound Culture - Final Strep agalactiae - (group b) Assessment and Plan (1) Infection of total left knee replacement Current Visit: Yes Status: Acute Priority: High Code(s): T84.54XA - INFECT/INFLM REACTION DUE TO INTERNAL LEFT KNEE PROSTH, INIT SNOMED Code(s): 693528023 (2) Group B streptococcal infection Current Visit: No Status: Acute Code(s): A49.1 - STREPTOCOCCAL INFECTION, UNSPECIFIED SITE SNOMED Code(s): 614243711 (3) History of total knee arthroplasty Current Visit: No Status: Acute Code(s): Z96.659 - PRESENCE OF UNSPECIFIED ARTIFICIAL KNEE JOINT SNOMED Code(s): 5137856247948 (4) Squamous cell carcinoma of tonsil Current Visit: No Status: Acute Code(s): C09.9 - MALIGNANT NEOPLASM OF TONSIL, UNSPECIFIED SNOMED Code(s): 790387407 Plan: If it is felt to be necessary, we'll proceed with a JENNIFER examination. Patient does have history of previous radiation therapy for throat cancer. If we encounter any difficulties, we may abandon the procedure. Discussed the risks of the procedure with the patient
[2019-02-20] MEDS: VANCOMYCIN 1,250 MG in SODIUM CHLORIDE 0.9% 250 ML IVPB SCH (15:06)
[2019-02-20] MEDS: ENOXAPARIN 120 MG/0.8 ML SYRINGE SQ SCH (16:54)
--- NOTE | 2019-02-20 17:20 | PN ---
PROGRESS NOTE DATE OF SERVICE: 02/20/2019. REASON FOR FOLLOWUP VISIT: 1. Drug rash. 2. Left knee septic arthritis secondary Group B strep. INTERVAL HISTORY: The patient is currently afebrile. The patient did have overall resolution of his rash. However, discontinuation of the Rocephin. The patient receiving 1 dose of Solu- Medrol. The patient currently denies having any itching or any rash. No difficulty breathing or tongue swelling. Denies any chest pain or shortness of breath or cough. No abdominal pain and no worsening pain to the left knee area. PHYSICAL EXAMINATION: Blood pressure 94/57 with a pulse of 72. Temperature 97.3. He is 97% on room air. General description is an elderly male lying in bed in no distress. Respiratory system: Unlabored breathing, clear to auscultation anteriorly. Heart S1, S2. Regular rate and rhythm. Abdomen soft, no tenderness. On skin examination, the rash has resolved. Left knee is currently dressed up. No obvious drainage on the dressing. LABS: Hemoglobin is 10, white count 4.5, creatinine is 1.15. DIAGNOSTIC IMPRESSION AND PLAN: 1. Patient with generalized maculopapular rash, likely related to Rocephin that has been discontinued. Currently on vancomycin, pharmacy to dose. Vanco trough will be monitored closely. Kidney function improved compared to yesterday. 2. Left knee septic arthritis covered with vancomycin, Pharmacy to dose. Dr. Ramey will resume his care as of tomorrow. MMODL / IJN: [id number] /
[2019-02-20] MEDS: SENNOSIDES-DOCUSATE SODIUM 1 EACH TAB PO SCH (20:11)
[2019-02-20] MEDS: METOPROLOL SUCCINATE (ER) 25 MG TAB.ER.24H PO SCH (20:12)
[2019-02-21] MEDS: VANCOMYCIN 1,250 MG in SODIUM CHLORIDE 0.9% 250 ML IVPB SCH ×2 (06:27→22:28)
[2019-02-21] MEDS: PANTOPRAZOLE 40 MG TABLET PO SCH (06:28)
[2019-02-21] MEDS: LEVOTHYROXINE 25 MCG TAB PO SCH (06:28)
[2019-02-21 07:05] LABS: Calcium 8.7 mg/dL (8.4-10.2)
[2019-02-21] MEDS: CYCLOBENZAPRINE 10 MG TAB PO SCH ×4 (08:36→19:57)
[2019-02-21] MEDS: ALLOPURINOL 100 MG TAB PO SCH (08:54)
[2019-02-21] MEDS: GABAPENTIN 100 MG CAP PO SCH ×2 (08:54→19:57)
[2019-02-21] MEDS: LORATADINE 10 MG TAB PO SCH (08:54)
[2019-02-21] MEDS: diphenhydrAMINE 25 MG CAP PO PRN ×2 (09:27→18:48)
--- NOTE | 2019-02-21 11:31 | P.PN ---
Subjective Progress Note Date: 02/21/19 This is a 73-year-old male who is status post stage I revision left total knee arthroplasty with removal of components and placement of antibiotic spacer. This is postoperative day #4. Patient is seen and evaluated at bedside. Patient states that he was transferred to due to a change on his equipment monitor phototypesetting. Per nursing, there were ST changes noted and the patient was transferred to 3S last night, but cardiology has evaluated the patient and ruled out any acute process. Patient was scheduled for a JENNIFER today, but this was cancelled due to the patient's history of throat cancer. Patient states that he has been walking on the left leg daily and he states that his pain is well-controlled. Patient does complain of hives today. Patient states that the hives were going away, but now they are returning. Patient denies any fever/chills, numbness, weakness, tingling, abdominal pain, shortness of breath or chest pain. Objective - Vital Signs Vital signs: Vital Signs Temp 97.8 F 02/21/19 00:54 Pulse 72 02/21/19 00:54 Resp 16 02/21/19 00:54 BP 104/63 02/21/19 00:54 Pulse Ox 97 02/21/19 00:54 Intake & Output 02/20/19 02/21/19 02/21/19 18:59 06:59 18:59 Intake Total 240 Output Total 400 Balance 240 -400 Intake: Oral 240 Output: Urine 400 Other: Voiding Method Urinal Urinal # Voids 1 - Exam Vital signs are stable. Patient is in no acute distress and is alert and oriented 3. Calf is soft and nontender to palpation. Dressing is clean, dry, and intact. Patient has full foot and ankle motion without pain or difficulty. Neurovascular status and circulatory status are intact. - Labs CBC & Chem 7: 02/20/19 06:19 02/21/19 06:21 Labs: Abnormal Lab Results - Last 24 Hours (Table) 02/21/19 Range/Units 06:21 BUN 42 H (9-20) mg/dL Creatinine 1.26 H (0.66-1.25) mg/dL Microbiology - Last 24 Hours (Table) 02/17/19 22:48 Blood Culture - Preliminary Blood No Growth after 72 hours 02/17/19 22:56 Blood Culture - Preliminary Blood No Growth after 72 hours Assessment and Plan Assessment: Status post stage I revision left total knee arthroplasty with removal of components and placement of antibiotic spacer. (1) Infection of total left knee replacement Current Visit: Yes Status: Acute Priority: High Code(s): T84.54XA - INFECT/INFLM REACTION DUE TO INTERNAL LEFT KNEE PROSTH, INIT SNOMED Code(s): 231791261 Plan: #1 Continue with routine postoperative care and pain control, leave dressing in place for ten days. #2 Anticoagulation with Lovenox. #3 Physical therapy today. Weightbearing as tolerated to the left lower extremity. #4 Appreciate input from internal medicine, cardiology and infectious disease. #5 Cultures are positive for group B strep. Blood cultures are negative. Patient is awaiting PICC line placement. #6 Anticipate discharge in the next 24-48 hours.
[2019-02-21] MEDS: FLUTICASONE 50MCG/SPRAY NASAL 16GM EA NOSTRIL SCH (13:16)
[2019-02-21] MEDS: HYDROcodone/APAP 5-325MG 1 EACH TAB PO PRN (14:59)
--- NOTE | 2019-02-21 15:24 | P.PN ---
Subjective Progress Note Date: 02/21/19 Principal diagnosis: Patient is admitted for septic arthritis of the left knee patient has multiple procedures and then the knee on the left side for his sepsis post knee replaceme nt. Patient is presently on Rocephin 9 all the cultures are so far negative patient will undergo surgical intervention for for her septic knee. And possible revision arthroplasty patient is on PEG tube feedings and does eat by mouth as well. 02/18/2019 She underwent revision arthroplasty yesterday patient is presently on ceftezolin 02/19/2019 Patient started having a rash which appears to be ALLERGIC reaction to unknown medication that was started except for patient was switched to Rocephin although patient did receive Rocephin in the past and patient was another cephalosporin and to less today my suspicion is low that the this antibiotic is causing problems because of which I continued the medication but later in the day his rash worsened because of which I held the the antibiotic and infectious disease was notified. 02/20/2019 Patient's ALLERGIC reaction resolved after discontinue additional Rocephin patient was started on vancomycin creatinine is 1.0 IV fluids were discontinued yesterday because of desaturation requirement approximately skin he walks in and see if he desaturates again we'll obtain a chest x-ray. Patient received Solu- Medrol with improved rash. 02/21/2019 Patient is sitting up in bed in no acute distress with no acute overnight issues. Left knee dressing is dry and intact. Patient states that he has been getting up and walking with physical therapy. Patient is awaiting to possibly receive a midline for PICC line for continued IV antibiotic therapy per infectious disease recommendations. Cardiology has evaluated the patient and JENNIFER is scheduled for the morning. Will await report. Review of Systems: Cardiovascular: No reports of chest pain or palpitations Respiratory: No reports of shortness of breath or cough GI: No reports of nausea, vomiting, or diarrhea : No reports of dysuria or retention Objective - Vital Signs Vital signs: Vital Signs Temp 97.6 F 02/21/19 11:51 Pulse 72 02/21/19 11:51 Resp 20 02/21/19 11:51 BP 109/68 02/21/19 11:51 Pulse Ox 96 02/21/19 11:51 Intake & Output 02/20/19 02/21/19 02/21/19 18:59 06:59 18:59 Intake Total 240 400 Output Total 400 925 Balance 240 -400 -525 Weight 94.2 kg Intake: Intake, IV Titration 160 Amount IV Fluid Continuation 1, 160 000 ml @ 0 mls/hr IV .[employer]gar[employer] ONE Rx#:[id number] Oral 240 240 Output: Urine 400 925 Other: Voiding Method Urinal Urinal # Voids 1 - Exam GENERAL: The patient is alert and oriented x3, not in any acute distress. Well developed, well nourished. HEENT: Pupils are round and equally reacting to light. EOMI. No scleral icterus. No conjunctival pallor. Normocephalic, atraumatic. No pharyngeal erythema. No thyromegaly. CARDIOVASCULAR: S1 and S2 present. No murmurs, rubs, or gallops. PULMONARY: Chest is clear to auscultation, no wheezing or crackles. ABDOMEN: Soft, nontender, nondistended, normoactive bowel sounds. No palpable organomegaly. MUSCULOSKELETAL: No joint swelling or deformity. Left knee with minimal swelling noted, surgical dressing is dry and intact, no areas of redness noted. EXTREMITIES: No cyanosis, clubbing, or pedal edema. NEUROLOGICAL: Gross neurological examination did not reveal any focal deficits. SKIN: ALLERGIC rash resolved - Labs CBC & Chem 7: 02/20/19 06:19 02/21/19 06:21 Labs: Abnormal Lab Results - Last 24 Hours (Table) 02/21/19 Range/Units 06:21 BUN 42 H (9-20) mg/dL Creatinine 1.26 H (0.66-1.25) mg/dL Microbiology - Last 24 Hours (Table) 02/17/19 22:48 Blood Culture - Preliminary Blood No Growth after 72 hours 02/17/19 22:56 Blood Culture - Preliminary Blood No Growth after 72 hours Assessment and Plan Assessment: -Septic arthritis of the left knee, antibiotics as per infectious disease patient appears to depending on his previous cultures. Patient is being evaluated for transesophageal echocardiogram by cardiology because of multiple infections in the knee. Although patient has radiation to his neck because of which the will not be possible, per cardiology JENNIFER will be done tomorrow. Patient awaiting to receive a possible midline or PICC line for continued IV antibiotic therapy per infectious disease recommendations. -Possible ALLERGIC to Rocephin patient was switched to vancomycin with mon itoring of kidney function. -History of laryngeal cancer patient has a PEG tube feeding does tolerate by mouth feedings as well . -History of DVT for which patient is on Lovenox -Hypertension -History of obstructive sleep apnea uses BiPAP at home which will be continued -Hypothyroidism Plan: Patient will undergo JENNIFER in the morning. Cardiology and infectious disease are following closely. Case management and social work following as well for any potential discharge needs. Will continue to follow along closely. Further recommendations to follow.
[2019-02-21] MEDS: ENOXAPARIN 120 MG/0.8 ML SYRINGE SQ SCH (18:49)
--- NOTE | 2019-02-21 19:08 | P.PN ---
Subjective Progress Note Date: 02/21/19 73-year-old male presents to Hospital for evaluation of the sudden onset of pain to his left knee. This pleasant gentleman relates that he underwent a total knee arthroplasty approximately [address] Gatica. 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 The patient was treated with a course of radiation therapy and chemotherapy at an outside institution. Apparently patient developed significant side effects of radiation in that he could not swallow and constantly PEG tube was placed for him to receive his nutrition. The PEG tube remains in place and he continues to use tube feeds at this time, and does relate that he does also eat. He denies a ny difficulty with pain and swelling at this point in time. The patient relates surely before the knee became painful he was doing some work in the yard. He does not recall kneeling and had no acute injury to the knee. He's had no difficulty with sores or ulcerations to the left foot or leg. He c omplains of no discomforts to the leg except at the knee where there was a sudden onset of pain before his presentation. He does relate when the pain started he was seen by his orthopedic surgeons and aspiration was performed. Group B strep was isolated and the patient has been treated with a protracted course of intravenous antibiotic therapy. There was significant improvement of the patient's pain in the inflammatory parameters. He was consequently sent back to orthopedics for further evaluation. Aspiration of the joint occurred in there was evidence of recurrence of the group B strep and constantly he's been broadened to Hospital and the joint has been removed and antibiotic spacer was placed is a step 1 exchange. outpatient culture did have a group B strep. the patient did have reimplantation of the left total knee arthroplasty after completion of a protracted course of antibiotic therapy for the group B strep infection. Before reimplantation he did have aspiration of the joint that showed no evidence of any infection. At the time of surgery pathology did not reveal evidence of any significant inflammation to the joint. The patient has done well over the last several months from the surgery due to the sudden onset of the painful swelling to his knee. He presented to his orthopedic office where there was evidence of an effusion aspiration showed evidence of a winston late milk consistent material with evidence of gram-positive cocci. He knows he was admitted to hospital for extraction of the total knee arthroplasty in antibiotic that has been performed. Other than pain to the procedure the patient is just discouraged if he ongoing difficulties getting his very protracted past medical troubles. 02/18/2019 patient is postoperative feeling somewhat better today. The pain at surgical site he is feeling better. He is tolerating tube feeds well. And has been able to with a walker ambulatory to the restroom. He has not of the outpatient culture shows evidence of the group B strep. Echocardiogram was performed and reveals evidence of potential vegetation on the mitral valve. 02/21/2019 Patient is feeling somewhat better. Pain is slightly improved from the knee. He has been seen by cardiology and they've not decided that the JENNIFER will be performed to further evaluate his valve. He developed a significant rash to the Rocephin has now been transitioned vancomycin. Orders placed for his outpatient utilization of vancomycin. PICC line is also been requested. Blood cultures are negative. Objective - Vital Signs Vital signs: Vital Signs Temp 97.7 F 02/21/19 15:57 Pulse 83 02/21/19 15:57 Resp 20 02/21/19 15:57 BP 106/57 02/21/19 15:57 Pulse Ox 99 02/21/19 15:57 Intake & Output 02/21/19 02/21/19 02/22/19 06:59 18:59 06:59 Intake Total 872 Output Total 400 1225 Balance -400 -353 Weight 94.2 kg Intake: Intake, IV Titration 160 Amount IV Fluid Continuation 1, 160 000 ml @ 0 mls/hr IV .STK -MED ONE Rx#:[id number] Oral 712 Output: Urine 400 1225 Other: Voiding Method Urinal # Voids 1 - Exam Pleasant 73-year-old male, has some complaints of pain to the left knee area HEENT: Anicteric conjunctiva are pink and moist nasal mucosa grossly intact without significant lesions, there is no thrush. no visualized mass in the oral cavity no thrush Neck: The neck is supple without significant lymphadenopathy or thyromegaly. no palpable mass Lungs: medical bilateral air entry with few expiratory wheezes without yuriy bronchial sounds with dullness or egophony Heart: Regular rate and rhythm with an audible S1-S2, no S3 no S4. There is no significant murmur click or rub, PMI was nondisplaced. Abdomen: Positive bowel sounds soft and nontender without palpable masses or organomegaly. There was no guarding or rebound.PEG tube site is intact Extremities: The upper extremities have excellent pulses they are symmetric, no significant petechiae or telangiectasia. No splinter hemorrhages were noted. the right lower extremities without acute abnormalities. the left knee reveals evidence of the dressing which is not removed and there is no evidence of any drainage through the current dressing. The foot is evaluated is evidence of adequate warmth, adequate capillary refill, no open ulcerations or lesions. The foot is not cool and no necrotic ulcers are seen Neuro: Awake alert oriented to person place and time. There are no acute new gross focal sensory motor deficits. - Labs CBC & Chem 7: 02/20/19 06:19 02/21/19 06:21 Labs: Abnormal Lab Results - Last 24 Hours (Table) 02/21/19 Range/Units 06:21 BUN 42 H (9-20) mg/dL Creatinine 1.26 H (0.66-1.25) mg/dL Microbiology - Last 24 Hours (Table) 02/17/19 22:48 Blood Culture - Preliminary Blood No Growth after 72 hours 02/17/19 22:56 Blood Culture - Preliminary Blood No Growth after 72 hours Laboratory Results WBC 4.5 k/uL (3.8-10.6) 02/20/19 06:19 RBC 3.47 m/uL (4.30-5.90) L 02/20/19 06:19 Hgb 10.0 gm/dL (13.0-17.5) L 02/20/19 06:19 Hct 32.0 % (39.0-53.0) L 02/20/19 06:19 MCV 92.0 fL (80.0-100.0) 02/20/19 06:19 MCH 28.8 pg (25.0-35.0) 02/20/19 06:19 MCHC 31.3 g/dL (31.0-37.0) 02/20/19 06:19 RDW 13.5 % (11.5-15.5) 02/20/19 06:19 Plt Count 261 k/uL (150-450) 02/20/19 06:19 Neutrophils % 90 % 02/20/19 06:19 Lymphocytes % 8 % 02/20/19 06:19 Monocytes % 1 % 02/20/19 06:19 Eosinophils % 0 % 02/20/19 06:19 Basophils % 0 % 02/20/19 06:19 Neutrophils # 4.1 k/uL (1.3-7.7) 02/20/19 06:19 Lymphocytes # 0.3 k/uL (1.0-4.8) L 02/20/19 06:19 Monocytes # 0.1 k/uL (0-1.0) 02/20/19 06:19 Eosinophils # 0.0 k/uL (0-0.7) 02/20/19 06:19 Basophils # 0.0 k/uL (0-0.2) 02/20/19 06:19 Hypochromasia Moderate 02/20/19 06:19 ESR 62 mm/hr (0-15) H 02/17/19 22:48 Sodium 137 mmol/L (137-145) 02/21/19 06:21 Potassium 5.0 mmol/L (3.5-5.1) 02/21/19 06:21 Chloride 105 mmol/L (98-107) 02/21/19 06:21 Carbon Dioxide 28 mmol/L (22-30) 02/21/19 06:21 Anion Gap 4 mmol/L 02/21/19 06:21 BUN 42 mg/dL (9-20) H 02/21/19 06:21 Creatinine 1.26 mg/dL (0.66-1.25) H 02/21/19 06:21 Est GFR (CKD-EPI)AfAm 65 (>60 ml/min/1.73 sqM) 02/21/19 06:21 Est GFR (CKD-EPI)NonAf 57 (>60 ml/min/1.73 sqM) 02/21/19 06:21 Glucose 92 mg/dL (74-99) 02/21/19 06:21 Calcium 8.7 mg/dL (8.4-10.2) 02/21/19 06:21 Total Bilirubin 0.7 mg/dL (0.2-1.3) 02/16/19 18:17 AST 31 U/L (17-59) 02/16/19 18:17 ALT 39 U/L (4-49) 02/16/19 18:17 Alkaline Phosphatase 78 U/L (38-126) 02/16/19 18:17 Troponin I <0.012 ng/mL (0.000-0.034) 02/17/19 06:56 C-Reactive Protein 338.6 mg/L (<10.0) H 02/17/19 22:48 Total Protein 6.6 g/dL (6.3-8.2) 02/16/19 18:17 Albumin 3.3 g/dL (3.5-5.0) L 02/16/19 18:17 Blood Type A Positive 02/14/19 14:58 Blood Type Recheck A Pos 02/14/19 14:58 Bld Type Recheck Status No 02/14/19 14:58 Antibody Screen NEGATIVE 02/14/19 14:58 Spec Expiration Date 02/19/2019 [id number] 02/14/19 14:58 Microbiology 02/17/19 22:48 Blood Blood Culture - Preliminary No Growth after 72 hours 02/17/19 22:56 Blood Blood Culture - Preliminary No Growth after 72 hours 02/17/19 15:00 Knee - Left Anaerobic Culture - Preliminary 02/17/19 15:00 Knee - Left Anaerobic Culture - Preliminary 02/17/19 15:00 Knee - Left Gram Stain - Final 02/17/19 15:00 Knee - Left Wound Culture - Final Strep agalactiae - (group b) 02/17/19 15:00 Knee - Left Gram Stain - Final 02/17/19 15:00 Knee - Left Wound Culture - Final Strep agalactiae - (group b) 02/17/19 15:00 Knee - Left Fungal Culture - Preliminary 02/17/19 15:00 Knee - Left Fungal Culture - Preliminary Assessment and Plan (1) Group B streptococcal infection Current Visit: No Status: Acute Code(s): A49.1 - STREPTOCOCCAL INFECTION, UNSPECIFIED SITE SNOMED Code(s): 021199618 (2) Infection of total left knee replacement Narrative/Plan: 73-year-old male with a complex past medical history including as well as for carcinoma which has been treated with prior surgical intervention with chemoradiation. He continues to have his PEG tube in place for his nutritional support. His weight is been stable and he said modestly well over time. However developed significant pain and swelling to his left knee earlier in the year. A group B streptococcal infection was found. The knee was extracted, antibiotic spacer was placed and he received a protracted course of antibiotic therapy. Once he had improvement he then was evaluated and had aspiration of the joints with evidence of no abnormalities. At the time of reimplantation pathology showed no evidence of any acute inflammation in the total knee arthroplasty was reimplanted. Now 3 months later she has again group B streptococcal infection of that joint. The patient is a complex host and consequently evaluation for endocarditis is being requested by an echocardiogram. Blood cultures are requested. Antibiotic therapy with Rocephin 2 g a day is an ideal choice at this time. During his last treatment he had to come to [facility] daily for his infusions. We'll again ask case management to [facility] to determine if there is any option for this at his home. the patient is in only 1 fever during this stay, likely some immunocompromised from his history of cancer. Once blood cultures are negative IV access will be placed and his outpatient course will be solidified. 02/18/2019 the patient has had improvement of his status, is not having fevers and pain is stable postoperative. The transverse thoracic echocardiogram shows evidence of potential vegetation on the mitral valve and constantly will ask for cardiology to evaluate for a JENNIFER if they believe is indicated. Antibiotic therapy should be adequate with Rocephin given the culture from the outpatient setting as well as now inpatient with group B strep. Once we have negative blood cultures available to place an IV catheter such as a PICC line for his outpatient intravenous antibiotic therapy. Prescription dispensed at the [place] for authorization. 02/21/2019 Patient has had some further improvement. However is transesophageal echocardiogram is planned for tomorrow to further evaluate that mitral valve leaflet to ensure that there is no endocarditis or if there is the extent ensure there is no other abnormality. PICC line has been requested. He is trying to have [place] authorizes everything [place] home tomorrow after his procedures have been performed. He still had a bit of rash and we've asked for the pedicle to changed from when necessary to scheduled until his rash is further resolved. Current Visit: Yes Status: Acute Priority: High Code(s): T84.54XA - INFECT/INFLM REACTION DUE TO INTERNAL LEFT KNEE PROSTH, INIT SNOMED Code(s): 125814016 (3) Squamous cell carcinoma of tonsil Current Visit: No Status: Acute Code(s): C09.9 - MALIGNANT NEOPLASM OF TONSIL, UNSPECIFIED SNOMED Code(s): 882997232 (4) Status post revision of total replacement of left knee Current Visit: No Status: Acute Code(s): Z96.652 - PRESENCE OF LEFT AR TIFICIAL KNEE JOINT SNOMED Code(s): 577745822243947
[2019-02-21] MEDS: diphenhydrAMINE 25 MG CAP PO SCH ×2 (19:56→22:29)
[2019-02-21] MEDS: SENNOSIDES-DOCUSATE SODIUM 1 EACH TAB PO SCH (19:56)
[2019-02-21] MEDS: METOPROLOL SUCCINATE (ER) 25 MG TAB.ER.24H PO SCH (19:57)
[2019-02-21 20:38] LABS: Glucose,Whole Blood 95 mg/dL (75-99)
[2019-02-21] MEDS ORDERED: VANCOMYCIN TROUGH DUE 1 EACH MISC MISCELLANE ONE (21:00)
[2019-02-22] MEDS: LEVOTHYROXINE 25 MCG TAB PO SCH (03:07)
[2019-02-22] MEDS: PANTOPRAZOLE 40 MG TABLET PO SCH (03:07)
[2019-02-22] MEDS: HYDROcodone/APAP 5-325MG 1 EACH TAB PO PRN ×2 (06:15→13:36)
[2019-02-22 06:31] LABS: Prothrombin Time 10.4 sec (9.0-12.0)
--- NOTE | 2019-02-22 08:47 | P.PN ---
Subjective Progress Note Date: 02/22/19 This is a 73-year-old male who is status post stage I revision left total knee arthroplasty with removal of components and placement of antibiotic spacer. This is postoperative day #5. Patient is seen and evaluated at bedside. Patient states that his pain is well controlled and he has been up and walking. Patient denies any new complaints today. Patient denies any fever/chills, numbness, weakness, tingling, abdominal pain, shortness of breath or chest pain. Objective - Vital Signs Vital signs: Vital Signs Temp 98 F 02/22/19 06:39 Pulse 72 02/22/19 06:39 Resp 18 02/22/19 06:39 BP 112/68 02/22/19 06:39 Pulse Ox 97 02/22/19 06:39 Intake & Output 02/21/19 02/22/19 02/22/19 18:59 06:59 18:59 Intake Total 872 Output Total 1225 1600 Balance -353 -1600 Weight 93.2 kg Intake: Intake, IV Titration 160 Amount IV Fluid Continuation 1, 160 000 ml @ 0 mls/hr IV .STK -MED ONE Rx#:[id number] Oral 712 Output: Urine 1225 1600 Other: # Voids 1 - Exam Vital signs are stable. Patient is in no acute distress and is alert and oriented 3. Calf is soft and nontender to palpation. Dressing is clean, dry, and intact. Patient has full foot and ankle motion without pain or difficulty. Neurovascular status and circulatory status are intact. - Labs CBC & Chem 7: 02/20/19 06:19 02/21/19 06:21 Labs: Microbiology - Last 24 Hours (Table) 02/17/19 22:48 Blood Culture - Preliminary Blood No Growth after 96 hours 02/17/19 22:56 Blood Culture - Preliminary Blood No Growth after 96 hours 02/17/19 15:00 Anaerobic Culture - Final Knee - Left 02/17/19 15:00 Anaerobic Culture - Final Knee - Left Assessment and Plan Assessment: Status post stage I revision left total knee arthroplasty with removal of compo nents and placement of antibiotic spacer. (1) Infection of total left knee replacement Current Visit: Yes Status: Acute Priority: High Code(s): T84.54XA - INFECT/INFLM REACTION DUE TO INTERNAL LEFT KNEE PROSTH, INIT SNOMED Code(s): 671548003 Plan: #1 Continue with routine postoperative care and pain control, leave dressing in place for ten days. #2 Anticoagulation with Lovenox. #3 Physical therapy today. Weightbearing as tolerated to the left lower extremity. #4 Appreciate input from internal medicine, cardiology and infectious disease. #5 Cultures are positive for group B strep. Blood cultures are negative. Patient is awaiting PICC line placement. #6 Anticipate discharge in the next 24-48 hours.
[2019-02-22] MEDS ORDERED: fentaNYL (PF) 50 MCG/ML 2 ML AMP ONE (09:55)
[2019-02-22] MEDS ORDERED: IV FLUID CONTINUATION 100 ML IV ONE (10:34)
[2019-02-22] MEDS: BENZOCAINE SPRAY 1 CAN MUCOUS MEM ONE ×2 (10:36→10:43)
[2019-02-22] MEDS ORDERED: fentaNYL (PF) 50 MCG/ML 2 ML AMP IV ONE (10:43)
[2019-02-22] MEDS ORDERED: MIDAZOLAM 2 MG/2 ML VIAL IVP ONE ×2 (10:44)
--- NOTE | 2019-02-22 11:12 | P.CARDCATH ---
Date of Procedure: 02/22/19 Preoperative Diagnosis: rule out vegetation on the mitral valve Postoperative Diagnosis: no definite vegetation. There is thickening of the mitral leaflets Procedure(s) Performed: JENNIFER Description of Procedure: INDICATION: Rule out vegetation in the mitral valve CONSENT: verbal consent was obtained from the patient PROCEDURE: . Patient was brought to the lab in a fasting state. He was prepped and draped in the usual fashion. Patient was given IV sedation with a 200 mg of Versed and 50 g of fentanyl. A lubricated Omni probe was introduced into the oropharynx and was advanced into the esophagus. Multiple views were obtained from the esophagus. Color, pulsed and continuous wave Doppler's studies were done. Saline contrast bubble injection was performed. The patient tolerated the procedure well. No immediate complications FINDINGS: . The aortic valve is tricuspid and function normally without any vegetation. Aortic root is measured about 4 cm. The mitral valve shows some thickening and redundant chordae. I do not see any definite vegetation. There is mild mitral regurgitation. The tricuspid valve appeared to be normal. The the interatrial septum appeared to show excessive oscillation. No spontaneous flow across the interatrial septum. Injection of the contrast saline bubble injection did not reveal any traversing of the bubbles across. Left ventricular function appeared within normal IMPRESSION: . #1. No definite vegetation on the mitral valve. There is thickening of the mitral valve and also redundant chordae #2. Mild mitral regurgitation #3. Normal aortic valve. #4. Normal aortic valve. #5. Left atrial appendage is free of any clot. #6. The interatrial septum is intact without any shunt. No evidence of PFO PLAN: continue current medical therapy
--- NOTE | 2019-02-22 11:20 | P.PN ---
Subjective Patient is admitted for septic arthritis of the left knee patient has multiple procedures and then the knee on the left side for his sepsis post knee replacement. Patient is presently on Rocephin 9 all the cultures are so far negative patient will undergo surgical intervention for for her septic knee. And possible revision arthroplasty patient is on PEG tube feedings and does eat by mouth as well. 02/18/2019 She underwent revision arthroplasty yesterday patient is presently on ceftezolin 02/19/2019 Patient started having a rash which appears to be ALLERGIC reaction to unknown medication that was started except for patient was switched to Rocephin although patient did receive Rocephin in the past and patient was another cephalosporin and to less today my suspicion is low that the this antibiotic is causing problems because of which I continued the medication but later in the day his rash worsened because of which I held the the antibiotic and infectious disease was notified. 02/20/2019 Patient's ALLERGIC reaction resolved after discontinue additional Rocephin patient was started on vancomycin creatinine is 1.0 IV fluids were discontinued yesterday because of desaturation requirement approximately skin he walks in and see if he desaturates again we'll obtain a chest x-ray. Patient received Solu- Medrol with improved rash. 02/22/2019 Patient underwent JENNIFER which did not show any vegetations. Constitutional: Denied any fatigue denied any fever. Cardio vascular: denied any chest pain, palpitations Gastrointestinal denied any nausea vomiting Pulmonary: Denied any shortness of breath cough Neurologic denied any new focal deficits All inpatient medications were reviewed and appropriate changes in these medications as dictated in the interval history and assessment and plan. Objective - Vital Signs Vital signs: Vital Signs Temp 97.8 F 02/22/19 09:03 Pulse 76 02/22/19 10:58 Resp 16 02/22/19 09:03 BP 123/104 02/22/19 10:58 Pulse Ox 96 02/22/19 10:58 Intake & Output 02/21/19 02/22/19 02/22/19 18:59 06:59 18:59 Intake Total 872 50 Output Total 1225 1600 Balance -353 -1600 50 Weight 93.2 kg Intake: IV 50 Intake, IV Titration 160 Amount IV Fluid Continuation 1, 160 000 ml @ 0 mls/hr IV .STK -MED ONE Rx#:[id number] Oral 712 Output: Urine 1225 1600 Other: # Voids 1 - Exam PHYSICAL EXAMINATION: GENERAL: The patient is alert and oriented x3, not in any acute distress. Well developed, well nourished. HEENT: Pupils are round and equally reacting to light. EOMI. No scleral icterus. No conjunctival pallor. Normocephalic, atraumatic. No pharyngeal erythema. No thyromegaly. CARDIOVASCULAR: S1 and S2 present. No murmurs, rubs, or gallops. PULMONARY: Chest is clear to auscultation, no wheezing or crackles. ABDOMEN: Soft, nontender, nondistended, normoactive bowel sounds. No palpable organomegaly. MUSCULOSKELETAL: No joint swelling or deformity. Left knee swollen postsurgically packed EXTREMITIES: No cyanosis, clubbing, or pedal edema. NEUROLOGICAL: Gross neurological examination did not reveal any focal deficits. SKIN: ALLERGIC rash resolved - Labs CBC & Chem 7: 02/20/19 06:19 02/21/19 06:21 Labs: Microbiology - Last 24 Hours (Table) 02/17/19 22:48 Blood Culture - Preliminary Blood No Growth after 96 hours 02/17/19 22:56 Blood Culture - Preliminary Blood No Growth after 96 hours 02/17/19 15:00 Anaerobic Culture - Final Knee - Left 02/17/19 15:00 Anaerobic Culture - Final Knee - Left Assessment and Plan Plan: -Septic arthritis of the left knee antibiotics as per infectious disease patient is presently on vancomycin patient underwent JENNIFER which did not show any vegetations, patient underwent JENNIFER which did not show any vegetations 1 possible 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 -Mild acute renal failure prerenal azotemia which improved. Hypertension -History of obstructive sleep apnea uses BiPAP at home which will be continued -Hypothyroidism
[2019-02-22 12:33] VITALS: BMI 27.8
[2019-02-22] MEDS ORDERED: LIDOCAINE 1% INJ 10MG/ML (20 ML MDV) SQ ONE (13:02)
[2019-02-22] MEDS: ALLOPURINOL 100 MG TAB PO SCH (13:37)
[2019-02-22] MEDS: diphenhydrAMINE 25 MG CAP PO SCH ×4 (13:37→20:35)
[2019-02-22] MEDS: CYCLOBENZAPRINE 10 MG TAB PO SCH ×3 (13:37→20:35)
[2019-02-22] MEDS: GABAPENTIN 100 MG CAP PO SCH ×2 (13:37→20:35)
[2019-02-22] MEDS: LORATADINE 10 MG TAB PO SCH (13:38)
--- NOTE | 2019-02-22 13:47 | IR ---
EXAMINATION TYPE: IR cvc insert >=5 years DATE OF EXAM: 02/22/2019 COMPARISON: NONE CLINICAL HISTORY: Infection Needs long-term intravenous access for antibiotics. PROCEDURE: After informed consent, the skin overlying the left basilic vein was localized with ultrasound and no tomi to be compressible and patent. An ultrasound image was obtained and submitted on the patient's c lamb. The overlying skin was prepped and draped and Lidocaine was used for local anesthesia. A skin flavia was made with a scalpel. Access was gained to the vein under ultrasound guidance with a 21 gau ge needle and a 0.018 inch wire was advanced. Access site was dilated with Peel-Away sheath and cath eter tailored to the appropriate length and advanced such that the distal tip is at the cavoatrial ju nction. Spot image was obtained verifying placement. Catheter was fixed to the skin and a sterile d ressing was placed following hemostasis. Catheter was aspirated and flushed with saline. Patient wa s discharged in stable condition without complication.Maximal barrier technique is utilized. Ultraso und image is documented on the chart. Ultrasound used with sterile technique. Fluoro time and fluoroscopic images submitted to document procedure: 0.1 minutes fluoroscopy time, 16 intraoperative images document the procedure IMPRESSION: STATUS POST ULTRASOUND AND FLUOROSCOPIC GUIDED PICC LINE PLACEMENT, READY FOR USE. THIS PROCEDURE WAS PERFORMED BY THE UNDERSIGNED.
[2019-02-22] MEDS: VANCOMYCIN 1,250 MG in SODIUM CHLORIDE 0.9% 250 ML IVPB SCH (15:29)
[2019-02-22] MEDS: SODIUM CHLORIDE 0.9% 1,000 ML IV SCH (17:30)
[2019-02-22] MEDS: FLUTICASONE 50MCG/SPRAY NASAL 16GM EA NOSTRIL SCH (17:31)
[2019-02-22] MEDS: ENOXAPARIN 120 MG/0.8 ML SYRINGE SQ SCH (17:36)
[2019-02-22] MEDS: SENNOSIDES-DOCUSATE SODIUM 1 EACH TAB PO SCH (20:35)
[2019-02-22] MEDS: METOPROLOL SUCCINATE (ER) 25 MG TAB.ER.24H PO SCH (20:35)
[2019-02-23] MEDS: HYDROcodone/APAP 5-325MG 1 EACH TAB PO PRN ×4 (00:52→23:16)
[2019-02-23] MEDS: LEVOTHYROXINE 25 MCG TAB PO SCH (06:23)
[2019-02-23] MEDS: PANTOPRAZOLE 40 MG TABLET PO SCH (06:23)
[2019-02-23] MEDS: VANCOMYCIN 1,250 MG in SODIUM CHLORIDE 0.9% 250 ML IVPB SCH ×2 (06:23→21:54)
[2019-02-23 06:50] LABS: Calcium 8.5 mg/dL (8.4-10.2); Potassium 4.7 mmol/L (3.5-5.1)
[2019-02-23] MEDS: diphenhydrAMINE 25 MG CAP PO SCH ×4 (08:38→21:48)
[2019-02-23] MEDS: ALLOPURINOL 100 MG TAB PO SCH (08:38)
[2019-02-23] MEDS: LORATADINE 10 MG TAB PO SCH (08:38)
[2019-02-23] MEDS: CYCLOBENZAPRINE 10 MG TAB PO SCH ×3 (08:39→21:49)
[2019-02-23] MEDS: GABAPENTIN 100 MG CAP PO SCH ×2 (08:39→21:49)
[2019-02-23] MEDS: FLUTICASONE 50MCG/SPRAY NASAL 16GM EA NOSTRIL SCH (08:39)
--- NOTE | 2019-02-23 12:16 | P.PN ---
Subjective Patient is admitted for septic arthritis of the left knee patient has multiple procedures and then the knee on the left side for his sepsis post knee replacement. Patient is presently on Rocephin 9 all the cultures are so far negative patient will undergo surgical intervention for for her septic knee. And possible revision arthroplasty patient is on PEG tube feedings and does eat by mouth as well. 02/18/2019 She underwent revision arthroplasty yesterday patient is presently on ceftezolin 02/19/2019 Patient started having a rash which appears to be ALLERGIC reaction to unknown medication that was started except for patient was switched to Rocephin although patient did receive Rocephin in the past and patient was another cephalosporin and to less today my suspicion is low that the this antibiotic is causing problems because of which I continued the medication but later in the day his rash worsened because of which I held the the antibiotic and infectious disease was notified. 02/20/2019 Patient's ALLERGIC reaction resolved after discontinue additional Rocephin patient was started on vancomycin creatinine is 1.0 IV fluids were discontinued yesterday because of desaturation requirement approximately skin he walks in and see if he desaturates again we'll obtain a chest x-ray. Patient received Solu- Medrol with improved rash. 02/22/2019 Patient underwent JENNIFER which did not show any vegetations. 02/23/2019 Patient's antibiotics were arranged and patient possibly will be discharged today. Constitutional: Denied any fatigue denied any fever. Cardio vascular: denied any chest pain, palpitations Gastrointestinal denied any nausea vomiting Pulmonary: Denied any shortness of breath cough Neurologic denied any new focal deficits All inpatient medications were reviewed and appropriate changes in these medications as dictated in the interval history and assessment and plan. Objective - Vital Signs Vital signs: Vital Signs Temp 96.5 F L 02/23/19 08:00 Pulse 76 02/22/19 10:58 Resp 16 02/23/19 11:35 BP 94/65 02/23/19 08:00 Pulse Ox 98 02/23/19 08:00 Intake & Output 02/22/19 02/23/19 02/23/19 18:59 06:59 18:59 Intake Total 4010 40 1020 Output Total 1600 1000 Balance 2410 -960 1020 Weight 93.2 kg 97 kg Intake: IV 50 Intake, IV Titration 40 Amount Sodium Chloride 0.9% 1, 40 000 ml @ 20 mls/hr IV . Q24H [facility] Rx#:[id number] Oral 900 0 Tube Feeding 3060 1020 Output: Urine 1600 1000 Other: Voiding Method Urinal Urinal Urinal # Voids 1 # Bowel Movements 1 - Exam PHYSICAL EXAMINATION: GENERAL: The patient is alert and oriented x3, not in any acute distress. Well developed, well nourished. HEENT: Pupils are round and equally reacting to light. EOMI. No scleral icterus. No conjunctival pallor. Normocephalic, atraumatic. No pharyngeal erythema. No thyromegaly. CARDIOVASCULAR: S1 and S2 present. No murmurs, rubs, or gallops. PULMONARY: Chest is clear to auscultation, no wheezing or crackles. ABDOMEN: Soft, nontender, nondistended, normoactive bowel sounds. No palpable organomegaly. MUSCULOSKELETAL: No joint swelling or deformity. Left knee swollen postsurgically packed EXTREMITIES: No cyanosis, clubbing, or pedal edema. NEUROLOGICAL: Gross neurological examination did not reveal any focal deficits. SKIN: ALLERGIC rash resolved - Labs CBC & Chem 7: 02/20/19 06:19 02/23/19 05:13 Labs: Abnormal Lab Results - Last 24 Hours (Table) 02/23/19 Range/Units 05:13 BUN 34 H (9-20) mg/dL Glucose 131 H (74-99) mg/dL Microbiology - Last 24 Hours (Table) 02/17/19 22:56 Blood Culture - Preliminary Blood No Growth after 120 hours 02/17/19 22:48 Blood Culture - Preliminary Blood No Growth after 120 hours Assessment and Plan Plan: -Septic arthritis of the left knee antibiotics as per infectious disease patient is presently on vancomycin patient underwent JENNIFER which did not show any vegetations, patient underwent JENNIFER which did not show any vegetations. 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 -Mild acute renal failure prerenal azotemia which improved. Hypertension -History of obstructive sleep apnea uses BiPAP at home which will be continued -Hypothyroidism
--- NOTE | 2019-02-23 12:27 | P.PN ---
Subjective Progress Note Date: 02/23/19 Principal diagnosis: Septic left knee s/p TKA Patient is a 73-year-old male seen at bedside this am. He is status post stage I revision left total knee arthroplasty with removal of components and placement of antibiotic spacer, POD #6. He is being followed by infectious disease and on IV antibiotics. A PICC line has been placed. He is also being followed by IM and cardiology. Patient states that his pain is controlled today and feels improved some. He denies any new complaints. He denies numbness , tingling, calf pain, fever, chills, chest pain or shortness of breath. Objective - Vital Signs Vital signs: Vital Signs Temp 96.5 F L 02/23/19 08:00 Pulse 76 02/22/19 10:58 Resp 16 02/23/19 11:35 BP 94/65 02/23/19 08:00 Pulse Ox 98 02/23/19 08:00 Intake & Output 02/22/19 02/23/19 02/23/19 18:59 06:59 18:59 Intake Total 4010 40 1020 Output Total 1600 1000 Balance 2410 -960 1020 Weight 93.2 kg 97 kg Intake: IV 50 Intake, IV Titration 40 Amount Sodium Chloride 0.9% 1, 40 000 ml @ 20 mls/hr IV . Q24H [facility] Rx#:[id number] Oral 900 0 Tube Feeding 3060 1020 Output: Urine 1600 1000 Other: Voiding Method Urinal Urinal Urinal # Voids 1 # Bowel Movements 1 - Exam Vital signs are stable. Patient is in no acute distress and is alert and orien tomi 3. Calf is soft and nontender to palpation. There is swelling at the knee as expected with some improvement. No increased erythema. Dressing is clean, dry, and intact. Patient has full foot and ankle motion without pain or difficulty. Neurovascular status with motor and sensation is intact throughout left leg as well as 2+ DP pulses and less than 2 sec cap refill present. - Constitutional General appearance: Present: no acute distress - Labs CBC & Chem 7: 02/20/19 06:19 02/23/19 05:13 Labs: Abnormal Lab Results - Last 24 Hours (Table) 02/23/19 Range/Units 05:13 BUN 34 H (9-20) mg/dL Glucose 131 H (74-99) mg/dL Microbiology - Last 24 Hours (Table) 02/17/19 22:56 Blood Culture - Preliminary Blood No Growth after 120 hours 02/17/19 22:48 Blood Culture - Preliminary Blood No Growth after 120 hours Assessment and Plan (1) Infection of total left knee replacement Narrative/Plan: He will continue with routine postoperative care including pain control, wound care with dressing to be left in place for 10 days, medical management, DVT prophylaxis, IV antibiotics per infectious disease and cardiology recommendations. He may discharge when home care and PICC line antibiotics are established, expect tomorrow 02/24. Current Visit: Yes Status: Acute Priority: High Code(s): T84.54XA - INFECT/INFLM REACTION DUE TO INTERNAL LEFT KNEE PROSTH, INIT SNOMED Code(s): 778517250 Time with Patient: Less than 30
[2019-02-23] MEDS: ENOXAPARIN 120 MG/0.8 ML SYRINGE SQ SCH (17:18)
[2019-02-23] MEDS: SENNOSIDES-DOCUSATE SODIUM 1 EACH TAB PO SCH (21:48)
[2019-02-23] MEDS: METOPROLOL SUCCINATE (ER) 25 MG TAB.ER.24H PO SCH (21:49)
[2019-02-23] MEDS: SODIUM CHLORIDE 0.9% 1,000 ML IV SCH (21:49)
[2019-02-24] MEDS: PANTOPRAZOLE 40 MG TABLET PO SCH (06:10)
[2019-02-24] MEDS: LEVOTHYROXINE 25 MCG TAB PO SCH (06:10)
--- NOTE | 2019-02-24 09:24 | P.PN ---
Subjective Progress Note Date: 02/24/19 This is a 73-year-old male who is status post stage I revision left total knee arthroplasty with removal of components and placement of antibiotic spacer. This is postoperative day #7. Patient is seen and evaluated at bedside. Patient states that his pain is well controlled today. Patient denies any new c omplaints today. Patient denies any fever/chills, numbness, weakness, tingling, abdominal pain, shortness of breath or chest pain. Objective - Vital Signs Vital signs: Vital Signs Temp 98 F 02/24/19 08:45 Pulse 82 02/24/19 08:45 Resp 20 02/24/19 08:45 BP 104/62 02/24/19 08:45 Pulse Ox 95 02/24/19 08:45 Intake & Output 02/23/19 02/24/19 02/24/19 18:59 06:59 18:59 Intake Total 1020 120 Output Total 880 Balance 1020 -880 120 Weight 96.5 kg Intake: Oral 120 Tube Feeding 1020 Output: Urine 880 Other: Voiding Method Urinal # Voids 1 1 # Bowel Movements 1 - Exam Vital signs are stable. Patient is in no acute distress and is alert and oriented 3. Calf is soft and nontender to palpation. Dressing is clean, dry, and intact. Patient has full foot and ankle motion without pain or difficulty. Neurovascular status and circulatory status are intact. - Labs CBC & Chem 7: 02/20/19 06:19 02/23/19 05:13 Labs: Microbiology - Last 24 Hours (Table) 02/17/19 22:48 Blood Culture - Final Blood No Growth after 144 hours 02/17/19 22:56 Blood Culture - Final Blood No Growth after 144 hours Assessment and Plan Assessment: Status post stage I revision left total knee arthroplasty with removal of components and placement of antibiotic spacer. (1) Infection of total left knee replacement Current Visit: Yes Status: Acute Priority: High Code(s): T84.54XA - INFECT/INFLM REACTION DUE TO INTERNAL LEFT KNEE PROSTH, INIT SNOMED Code(s): 396874586 Plan: #1 Continue with routine postoperative care and pain control, leave dressing in place for ten days. #2 Anticoagulation with Lovenox. #3 Physical therapy today. Weightbearing as tolerated to the left lower extremity. #4 Appreciate input from internal medicine, cardiology and infectious disease. #5 Cultures are positive for group B strep. Blood cultures are negative. Patient had a PICC line placed. #6 Anticipate discharge in the next 24-48 hours.
[2019-02-24] MEDS: ALLOPURINOL 100 MG TAB PO SCH (09:25)
[2019-02-24] MEDS: diphenhydrAMINE 25 MG CAP PO SCH ×4 (09:26→20:41)
[2019-02-24] MEDS: GABAPENTIN 100 MG CAP PO SCH ×2 (09:26→20:41)
[2019-02-24] MEDS: CYCLOBENZAPRINE 10 MG TAB PO SCH ×3 (09:26→20:41)
[2019-02-24] MEDS: HYDROcodone/APAP 5-325MG 1 EACH TAB PO PRN ×2 (09:26→18:50)
[2019-02-24] MEDS: LORATADINE 10 MG TAB PO SCH (09:26)
--- NOTE | 2019-02-24 09:40 | P.DS ---
Providers Date of admission: 02/16/19 15:07 Expected date of discharge: 02/24/19 Attending physician: Naman Barahona Consults: 02/16/19 09:53 Consult Physician Routine Consulting Provider: Royce Ramey Consult Reason/Comments: Infection of revision left total knee Do you want consulting provider notified?: Yes 02/16/19 10:00 Consult Physician Routine Consulting Provider: Priti Marx Consult Reason/Comments: medical management and surgical clearance Do you want consulting provider notified?: Yes 02/18/19 23:20 Consult Physician Routine Consulting Provider: Dedrick Daniels Consult Reason/Comments: endocarditis evaluate need for JENNIFER Do you want consulting provider notified?: Yes, Notify in am Primary care physician: Gil Israel - Discharge Diagnosis(es) (1) Infection of total left knee replacement Current Visit: Yes Status: Acute Priority: High Hospital Course: This is a 73-year-old male who was admitted for infection of his stage II left total knee replacement. 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 Most recently, patient underwent stage II revision left total knee arthroplasty on 11/16/2018 after a course of IV antibiotics. The patient was doing very well, but recently presented as an outpatient after developing sudden swelling in the left knee. The left knee was aspirated as an outpatient and cultures were positive for group B strep. After discussion and consideration patient elects to proceed with stage I revision left total knee arthroplasty with removal of components and placement of an antibiotic spacer. The patient is seen preoperatively by Dr. Barahona and medically cleared for surgery by internal medicine. Patient is admitted to [facility] on 02/16/2019 and stage I revision left total knee arthroplasty with removal of components and placement of an antibiotic spacer is performed on 02/17/2019. The procedures performed without complication or sequelae. The patient is doing well postoperatively. Labs and vital signs are stable on day of discharge. Patient had a PICC line placed and infectious disease has been managing antibiotics. Patient also underwent a JENNIFER to rule out endocarditis and no vegetations were found. Patient has also been followed by cardiology during this admission. On day of discharge patient's knee incision is healing well. There is minimal erythema. There is no drainage noted at this time. There is minimal soft tissue swelling to the knee. Patient has full foot and ankle motion without difficulty or pain. Calf is soft and nontender to palpation. Neurovascular status to the left lower extremity is intact. Patient is discharged home in good condition. Opioid start talking form is reviewed and signed at patient bedside. Please see [facility] rec for accurate list of home medications. Plan - Discharge Summary New Discharge Prescriptions: New cefTRIAXone [Rocephin] 2 gm IVPB Q24H #42 bag Vancomycin 1,000 mg IVPB Q12HR #120 bag HYDROcodone/APAP 5-325MG [Hum[place] 5-325] 1 - 2 tab PO Q6HR PRN #56 tab PRN Reason: Pain Sennosides [Senokot] 2 tab PO DAILY PRN #60 tablet PRN Reason: Constipation No Action Omeprazole [PriLOSEC] 20 mg PO BID Allopurinol [Zyloprim] 100 mg PO DAILY Metaxalone [Skelaxin] 800 mg PO TID Aspirin [Adult Low Dose Aspirin EC] 81 mg PO HS Fluticasone Nasal [place] [Flonase Nasal [place]] 2 spr EA NOSTRIL DAILY Gabapentin [Neurontin] 100 mg PO BID Enoxaparin [Lovenox] 120 mg SQ HS Hydrocodone/Acetaminophen [[place] 7.5-325] 1 tab PO Q4-6H PRN PRN Reason: Pain Levothyroxine Sodium [Synthroid] 25 mcg PO DAILY Loratadine 10 mg PO DAILY Metoprolol Succinate (ER) [Toprol Xl] 25 mg PO HS Sennosides [Senokot] 1 tab PO BID PRN PRN Reason: Constipation Discharge Medication List Allopurinol [Zyloprim] 100 mg PO DAILY 07/27/13 [History] Metaxalone [Skelaxin] 800 mg PO TID 07/27/13 [History] Omeprazole [PriLOSEC] 20 mg PO BID 07/27/13 [History] Aspirin [Adult Low Dose Aspirin EC] 81 mg PO HS 06/26/17 [History] Fluticasone Nasal [place] [Flonase Nasal [place]] 2 spr EA NOSTRIL DAILY 07/30/17 [History] Gabapentin [Neurontin] 100 mg PO BID 12/17/17 [History] Enoxaparin [Lovenox] 120 mg SQ HS 01/19/18 [History] Hydrocodone/Acetaminophen [[place] 7.5-325] 1 tab PO Q4-6H PRN 08/19/18 [History] Levothyroxine Sodium [Synthroid] 25 mcg PO DAILY 08/19/18 [History] Loratadine 10 mg PO DAILY 08/19/18 [History] Metoprolol Succinate (ER) [Toprol Xl] 25 mg PO HS 08/19/18 [History] Sennosides [Senokot] 1 tab PO BID PRN 02/16/19 [History] cefTRIAXone [Rocephin] 2 gm IVPB Q24H #42 bag 02/18/19 [Rx] Vancomycin 1,000 mg IVPB Q12HR #120 bag 02/21/19 [Rx] HYDROcodone/APAP 5-325MG [[place] 5-325] 1 - 2 tab PO Q6HR PRN #56 tab 02/22/19 [Rx] Sennosides [Senokot] 2 tab PO DAILY PRN #60 tablet 02/22/19 [Rx] Follow up Appointment(s)/Referral(s): Naman Barahona DO [Doctor of Osteopathic Medicine] - 2 Weeks Ambulatory/Diagnostic Orders: Basic Metabolic Panel [LAB.AMB] Location: None Selected Basic Metabolic Panel [LAB.AMB] Location: None Selected Complete Blood Count w/diff [LAB.AMB] Location: None Selected Complete Blood Count w/diff [LAB.AMB] Location: None Selected Miscellaneous Lab Order [LAB.AMB] Location: None Selected Miscellaneous Lab Order [LAB.AMB] Location: None Selected Activity/Diet/Wound Care/Special Instructions: [facility] Weightbearing as tolerated with a walker. Dressing may be removed 10 days postoperatively by home care nurse or by patient. Devon to be removed 10-14 days postoperatively. May shower with dressing in place. Recommend use of compression stockings daily for at least 2 weeks during the day to help prevent swelling and blood clots. May remove at night before sleeping. Anticoagulation per internal medicine. Please call [facility] with questions or concerns, . Discharge Disposition: HOME WITH HOME HEALTH SERVICES
[2019-02-24] MEDS: FLUTICASONE 50MCG/SPRAY NASAL 16GM EA NOSTRIL SCH (10:20)
--- NOTE | 2019-02-24 12:19 | P.PN ---
Subjective Patient is admitted for septic arthritis of the left knee patient has multiple procedures and then the knee on the left side for his sepsis post knee replacement. Patient is presently on Rocephin 9 all the cultures are so far negative patient will undergo surgical intervention for for her septic knee. And possible revision arthroplasty patient is on PEG tube feedings and does eat by mouth as well. 02/18/2019 She underwent revision arthroplasty yesterday patient is presently on ceftezolin 02/19/2019 Patient started having a rash which appears to be ALLERGIC reaction to unknown medication that was started except for patient was switched to Rocephin although patient did receive Rocephin in the past and patient was another cephalosporin and to less today my suspicion is low that the this antibiotic is causing problems because of which I continued the medication but later in the day his rash worsened because of which I held the the antibiotic and infectious disease was notified. 02/20/2019 Patient's ALLERGIC reaction resolved after discontinue additional Rocephin patient was started on vancomycin creatinine is 1.0 IV fluids were discontinued yesterday because of desaturation requirement approximately skin he walks in and see if he desaturates again we'll obtain a chest x-ray. Patient received Solu- Medrol with improved rash. 02/22/2019 Patient underwent JENNIFER which did not show any vegetations. 02/23/2019 Patient's antibiotics were arranged and patient possibly will be discharged today. 02/24/2019 [facility] is [facility]. Constitutional: Denied any fatigue denied any fever. Cardio vascular: denied any chest pain, palpitations Gastrointestinal denied any nausea vomiting Pulmonary: Denied any shortness of breath cough Neurologic denied any new focal deficits All inpatient medications were reviewed and appropriate changes in these medications as dictated in the interval history and assessment and plan. Objective - Vital Signs Vital signs: Vital Signs Temp 97.8 F 02/24/19 12:00 Pulse 71 02/24/19 12:00 Resp 20 02/24/19 12:00 BP 102/65 02/24/19 12:00 Pulse Ox 97 02/24/19 12:00 Intake & Output 02/23/19 02/24/19 02/24/19 18:59 06:59 18:59 Intake Total 1020 120 Output Total 880 400 Balance 1020 -880 -280 Weight 96.5 kg Intake: Oral 120 Tube Feeding 1020 Output: Urine 880 400 Other: Voiding Method Urinal # Voids 1 1 # Bowel Movements 1 - Exam PHYSICAL EXAMINATION: GENERAL: The patient is alert and oriented x3, not in any acute distress. Well developed, well nourished. HEENT: Pupils are round and equally reacting to light. EOMI. No scleral icterus. No conjunctival pallor. Normocephalic, atraumatic. No pharyngeal erythema. No thyromegaly. CARDIOVASCULAR: S1 and S2 present. No murmurs, rubs, or gallops. PULMONARY: Chest is clear to auscultation, no wheezing or crackles. ABDOMEN: Soft, nontender, nondistended, normoactive bowel sounds. No palpable organomegaly. MUSCULOSKELETAL: No joint swelling or deformity. Left knee swollen postsurgically packed EXTREMITIES: No cyanosis, clubbing, or pedal edema. NEUROLOGICAL: Gross neurological examination did not reveal any focal deficits. SKIN: ALLERGIC rash resolved - Labs CBC & Chem 7: 02/20/19 06:19 02/23/19 05:13 Labs: Microbiology - Last 24 Hours (Table) 02/17/19 22:48 Blood Culture - Final Blood No Growth after 144 hours 02/17/19 22:56 Blood Culture - Final Blood No Growth after 144 hours Assessment and Plan Plan: -Septic arthritis of the left knee antibiotics as per infectious disease patient is presently on vancomycin patient underwent JENNIFER which did not show any ve getations, patient underwent JENNIFER which did not show any vegetations. 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 -Mild acute renal failure prerenal azotemia which improved. Hypertension -History of obstructive sleep apnea uses BiPAP at home which will be continued -Hypothyroidism
[2019-02-24] MEDS: SODIUM CHLORIDE 0.9% 1,000 ML IV SCH (12:46)
[2019-02-24] MEDS ORDERED: VANCOMYCIN TROUGH DUE 1 EACH MISC MISCELLANE ONE (13:00)
[2019-02-24] MEDS: VANCOMYCIN 1,250 MG in SODIUM CHLORIDE 0.9% 250 ML IVPB SCH (14:20)
[2019-02-24 15:48] VITALS: RESP 16
[2019-02-24] MEDS: ENOXAPARIN 120 MG/0.8 ML SYRINGE SQ SCH (16:07)
[2019-02-24] MEDS: SENNOSIDES-DOCUSATE SODIUM 1 EACH TAB PO SCH (20:38)
[2019-02-24] MEDS: METOPROLOL SUCCINATE (ER) 25 MG TAB.ER.24H PO SCH (20:41)
[2019-02-25] MEDS: PANTOPRAZOLE 40 MG TABLET PO SCH (06:09)
[2019-02-25] MEDS: LEVOTHYROXINE 25 MCG TAB PO SCH (06:09)
[2019-02-25] MEDS: VANCOMYCIN 1,250 MG in SODIUM CHLORIDE 0.9% 250 ML IVPB SCH ×2 (06:09→14:06)
[2019-02-25] MEDS: diphenhydrAMINE 25 MG CAP PO SCH ×2 (09:29→12:51)
[2019-02-25] MEDS: GABAPENTIN 100 MG CAP PO SCH (09:29)
[2019-02-25] MEDS: ALLOPURINOL 100 MG TAB PO SCH (09:29)
[2019-02-25] MEDS: LORATADINE 10 MG TAB PO SCH (09:29)
[2019-02-25] MEDS: CYCLOBENZAPRINE 10 MG TAB PO SCH ×2 (09:29→16:03)
[2019-02-25] MEDS: FLUTICASONE 50MCG/SPRAY NASAL 16GM EA NOSTRIL SCH (09:30)
[2019-02-25] MEDS: HYDROcodone/APAP 5-325MG 1 EACH TAB PO PRN ×2 (09:30→16:03)
--- NOTE | 2019-02-25 11:02 | P.PN ---
Subjective Patient is admitted for septic arthritis of the left knee patient has multiple procedures and then the knee on the left side for his sepsis post knee replacement. Patient is presently on Rocephin 9 all the cultures are so far negative patient will undergo surgical intervention for for her septic knee. And possible revision arthroplasty patient is on PEG tube feedings and does eat by mouth as well. 02/18/2019 She underwent revision arthroplasty yesterday patient is presently on ceftezolin 02/19/2019 Patient started having a rash which appears to be ALLERGIC reaction to unknown medication that was started except for patient was switched to Rocephin although patient did receive Rocephin in the past and patient was another cephalosporin and to less today my suspicion is low that the this antibiotic is causing problems because of which I continued the medication but later in the day his rash worsened because of which I held the the antibiotic and infectious disease was notified. 02/20/2019 Patient's ALLERGIC reaction resolved after discontinue additional Rocephin patient was started on vancomycin creatinine is 1.0 IV fluids were discontinued yesterday because of desaturation requirement approximately skin he walks in and see if he desaturates again we'll obtain a chest x-ray. Patient received Solu- Medrol with improved rash. 02/22/2019 Patient underwent JENNIFER which did not show any vegetations. 02/23/2019 Patient's antibiotics were arranged and patient possibly will be discharged today. 02/24/2019 [facility] is [facility]. 02/25/2019 Patient is being discharged on vancomycin IV Constitutional: Denied any fatigue denied any fever. Cardio vascular: denied any chest pain, palpitations Gastrointestinal denied any nausea vomiting Pulmonary: Denied any shortness of breath cough Neurologic denied any new focal deficits All inpatient medications were reviewed and appropriate changes in these medications as dictated in the interval history and assessment and plan. Objective - Vital Signs Vital signs: Vital Signs Temp 97.7 F 02/25/19 08:00 Pulse 80 02/25/19 08:00 Resp 16 02/25/19 08:00 BP 113/70 02/25/19 08:00 Pulse Ox 96 02/25/19 08:00 Intake & Output 02/24/19 02/25/19 02/25/19 18:59 06:59 18:59 Intake Total 1000 958 240 Output Total 700 675 500 Balance 300 283 -260 Weight 96 kg Intake: IV 410 Sodium Chloride 0.9% 1, 160 000 ml @ 20 mls/hr IV . Q24H [facility] Rx#:[id number] Vancomycin 1,250 mg In 250 Sodium Chloride 0.9% 250 ml @ 125 mls/hr IVPB Q16H [facility] Rx#:[id number] Oral 240 118 240 Tube Feeding 350 840 Output: Urine 700 675 500 Other: Voiding Method Urinal Urinal Urinal - Exam PHYSICAL EXAMINATION: GENERAL: The patient is alert and oriented x3, not in any acute distress. Well developed, well nourished. HEENT: Pupils are round and equally reacting to light. EOMI. No scleral icterus. No conjunctival pallor. Normocephalic, atraumatic. No pharyngeal erythema. No thyromegaly. CARDIOVASCULAR: S1 and S2 present. No murmurs, rubs, or gallops. PULMONARY: Chest is clear to auscultation, no wheezing or crackles. ABDOMEN: Soft, nontender, nondistended, normoactive bowel sounds. No palpable organomegaly. MUSCULOSKELETAL: No joint swelling or deformity. Left knee swollen postsurgically packed EXTREMITIES: No cyanosis, clubbing, or pedal edema. NEUROLOGICAL: Gross neurological examination did not reveal any focal deficits. SKIN: ALLERGIC rash resolved - Labs CBC & Chem 7: 02/20/19 06:19 02/23/19 05:13 Assessment and Plan Plan: -Septic arthritis of the left knee antibiotics as per infectious disease patient is presently on vancomycin patient underwent JENNIFER which did not show any vegetations, patient underwent JENNIFER which did not show any vegetations. Patient is being discharged on vancomycin. 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 -Mild acute renal failure prerenal azotemia which improved. Hypertension -History of obstructive sleep apnea uses BiPAP at home which will be continued -Hypothyroidism
[2019-02-25 15:24] VITALS: BP 109/70; PULSE 73; TEMP 98.5
[2019-02-25] MEDS: ENOXAPARIN 120 MG/0.8 ML SYRINGE SQ SCH (16:03)
[2019-02-26] MEDS ORDERED: VANCOMYCIN TROUGH DUE 1 EACH MISC MISCELLANE ONE (13:00)
--- NOTE | 2019-02-28 15:16 | CDI ---
Documentation Clarification Form Date: 02/28/2019 03:03:17 PM From: Gris Nguyễn Phone: If you have a question about this query, please contact Corrina Enriquez, Correctional Captain at [phone] between 8am and 5pm. Admit Date: 02/22/2019 03:24:00 AM Patient Name: Zana Alegria Visit Number: [id number] Discharge Date: 02/24/2019 11:59:00 AM ATTENTION: The Clinical Documentation Specialists (CDI) and [facility] Coding Staff appreciate your assistance in clarifying documentation. Please respond to the clarification below the line at the bottom and electronically sign. The CDI & [facility] Coding staff will review the response and follow-up if needed. Please note: Queries are made part of the Legal Health Record. If you have any questions, please contact the author of this message via ITS. Dr. Magdi Marinelli Conflicting documentation has been found in the medical record: [facility] documents appearance of distal ileum and cecum could be related to localized crohn's disease. [employer] documents regional ileitis, which codes to crohn's. [employer] also documents non-specific enterocolitis which would not be crohn's. Please clarify if patient had non specific enterocolitis or did patient have regional ileitis. History/Risk Factors: bowel obstruction. dilated terminal ileum Clinical Indicators: abdominal pain Treatment: Levaquin and Flagyl In your opinion, what is the most clinically appropriate diagnosis for this patient? Regional ileitis non-specific enterocolitis Other explanation of clinical findings Unable to determine (no explanation for clinical findings) MTDD
== END 2019-02-25 16:48 | disposition home health service (06) | DRG 467 ==
LOC: OR 15:06 → 4SSUR 15:07 → EDSTATUS 02-17 13:40 → 3SCARD 02-21 06:09
PROVIDERS: ADMIT Orthopaedic Surgery; ATTEND Orthopaedic Surgery
PROC: 0SRD0J9 Replacement of Left Knee Joint with Synthetic Substitute, Cemented, Open Approach (ICD-10-PCS; 2019-02-17)
PROC: 0SPD0JZ Removal of Synthetic Substitute from Left Knee Joint, Open Approach (ICD-10-PCS; principal; 2019-02-17 13:40)
PROC: B246ZZ4 Ultrasonography of Right and Left Heart, Transesophageal (ICD-10-PCS; 2019-02-22)
PROC: 02HV33Z Insertion of Infusion Device into Superior Vena Cava, Percutaneous Approach (ICD-10-PCS; 2019-02-22)
DX: T84.54XA Infection and inflammatory reaction due to internal left knee prosthesis, initial encounter (principal); M00.262 Other streptococcal arthritis, left knee; Y83.1 Surgical operation with implant of artificial internal device as the cause of abnormal reaction of the patient, or of later complication, without mention of misadventure at the time of the procedure; B95.1 Streptococcus, group B, as the cause of diseases classified elsewhere; I34.0 Nonrheumatic mitral (valve) insufficiency; Z86.711 Personal history of pulmonary embolism; Z86.718 Personal history of other venous thrombosis and embolism; Z79.01 Long term (current) use of anticoagulants; G47.30 Sleep apnea, unspecified; Z93.1 Gastrostomy status; T36.1X5A Adverse effect of cephalosporins and other beta-lactam antibiotics, initial encounter; L27.0 Generalized skin eruption due to drugs and medicaments taken internally; K21.9 Gastro-esophageal reflux disease without esophagitis; Z85.21 Personal history of malignant neoplasm of larynx; Z87.891 Personal history of nicotine dependence; Z92.21 Personal history of antineoplastic chemotherapy; Z92.3 Personal history of irradiation; Z53.09 Procedure and treatment not carried out because of other contraindication; E03.9 Hypothyroidism, unspecified; D89.9 Disorder involving the immune mechanism, unspecified; I10 Essential (primary) hypertension; Z79.82 Long term (current) use of aspirin; Z79.890 Hormone replacement therapy; Z79.899 Other long term (current) drug therapy; Z80.3 Family history of malignant neoplasm of breast; Z79.51 Long term (current) use of inhaled steroids; Z99.89 Dependence on other enabling machines and devices; Z98.42 Cataract extraction status, left eye; Z98.41 Cataract extraction status, right eye
CPT/HCPCS: 36573; 71045; 80048; 80053; 80202; 82565; 84484; 85025; 85610; 85652; 86140; 86850; 86900; 86901; 87040; 87070; 87075; 87102; 87205; 93005; 93306; 93312; 93320; 93325

== ENCOUNTER → 2019-03-04 | Outpatient (CLI) | payer MEDICARE, OTHER ==
--- NOTE | 2019-03-04 22:41 | CT ---
CT CHEST FOR PULMONARY EMBOLISM. EXAMINATION TYPE: CT angio chest DATE OF EXAM: 03/04/2019 INDICATION: Follow up Lymphnode cancer per patient. CT DLP: 470.3 mGycm, Automated exposure control for dose reduction was used. CONTRAST: Patient injected with 60 mL of Isovue 370. COMPARISON: None TECHNIQUE: CT of the chest is performed on a spiral scan at 2 mm thick sections. Study is performed with intravenous contrast timed for evaluation for pulmonary embolism. This will limit additional po rtions of the evaluation. 3-D MIP images reconstructed by the technologist are reviewed on the compu ter in the coronal and sagittal planes. FINDINGS: No persistent filling defects are evident to suggest an acute pulmonary embolism. No mediastinal or hilar adenopathy enlarged by CT criteria is evident. There is some soft tissue type density over the left pulmonary vein which is stable from prior study. The ascending aorta diameter at the level of the main pulmonary artery is 4.4 cm. The main pulmonary artery diameter at the bifur cation is 3.1 cm. There is a moderate size hiatal hernia present. Limited CT section through the upper abdomen. Multiple cysts are within the kidneys compatible with p olycystic kidney disease. Supraclavicular region is unremarkable. Axillary regions within the [id number] appear within silvia l limits. IMPRESSIONS: 1. No acute pulmonary embolism. 2. Polycystic kidneys. Recommend monitoring renal function postcontrast. 3. Moderate size hiatal hernia. 4. Suspicious enlarged lymphadenopathy is not evident.
--- NOTE | 2019-03-05 07:52 | CT ---
EXAMINATION TYPE: CT soft tissue neck w con DATE OF EXAM: 03/04/2019 COMPARISON: 06/16/2018 HISTORY: Follow up Lymphnode cancer per patient.. 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 TECHNIQUE: Axial images at 3 mm thick sections. Reconstructed images in the coronal plane and sagitt al plane are reviewed. FINDINGS: Limited CT sections are obtained the lung apices. The lung apices appear clear. Subglottic airway appears normal. CT neck: The torus tubarius and fossa of Rosenmuller are normal. Motorcycle Mechanic spaces are normal. Para nasal sinuses and mastoid air cells are clear. Parotid glands appear normal and symmetrical. Submandibular glands, are normal. Parapharyngeal spac es are normal. No suspicious adenopathy is evident. A previous reference jugulodigastric lymph node on the right stable 0.8 cm. A left jugulodigastric lymph node is likewise within normal limits. The hypopharynx appears within normal limits. Vocal cord level is closed at the time of the examination is limited evaluation. Thyroid as visualized is normal. Degenerative disc changes are present within the lower cervical spine. The prevertebral space appears unremarkable. IMPRESSIONS: 1. No suspicious acute changes. 2. No enlarged lymph nodes or new developing lymphadenopathy is evident.
== END | disposition home or self-care (01) ==
LOC: RADCTMAIN 10:52
PROVIDERS: ATTEND Internal Medicine Hematology & Oncology
DX: K44.9 Diaphragmatic hernia without obstruction or gangrene (principal); C09.0 Malignant neoplasm of tonsillar fossa; R59.0 Localized enlarged lymph nodes; Z88.0 Allergy status to penicillin
CPT/HCPCS: 82565; 84520; 70491; 71275; 36415; Q9967

== ENCOUNTER → 2019-05-30 | Day surgery (SDC) | payer MEDICARE, OTHER ==
[2019-05-26 14:14] VITALS: BMI 28.7
[~2019-05-30] MED LIST changes: +ALPRAZolam 0.25 MG TAB PO PRN; +ALPRAZolam 0.5 MG TAB PO PRN; +ASPIRIN 325 MG TAB PO STA; -BISACODYL 10 MG SUPP RECTAL PRN; +ENOXAPARIN 120 MG/0.8 ML SYRINGE SQ STA; +HEPARIN SODIUM 1,000 UN/ML (10ML VL) ONE; -HYDROmorphone 0.5 MG/0.5 ML SYRINGE IVP PRN; +IOPAMIDOL-370 100ML BTL INJ ONE; +LIDOCAINE 1% INJ 10MG/ML (20 ML MDV) ONE; +LIDOCAINE 1% INJ 10MG/ML (20 ML MDV) SQ ONE; -MAGNESIUM HYDROXIDE 2,400 MG/10 ML CUP PO PRN; +MIDAZOLAM 2 MG/2 ML VIAL IV ONE; -NA PHOS,M-B/NA PHOS,DI-BA 133 ML ENEMA RECTAL PRN; -NALOXONE 0.4 MG/ML 1 ML VIAL IV PRN; +NITROGLYCERIN SL TABS 0.4 MG TAB SUBLINGUAL PRN; -ONDANSETRON 4 MG/2 ML VIAL IVP PRN; +SODIUM CHLORIDE 0.9% 1,000 ML IV SCH; +SODIUM CHLORIDE 0.9% 1,000 ML in EMPTY BAG 1 BAG IV ONE; +VERAPAMIL 2.5 MG/ML 2 ML AMP ONE; +VERAPAMIL SYRINGE (5 MG/10 ML) INTRAARTER ONE
[2019-05-30 09:48] VITALS: RESP 18; TEMP 98.2
[2019-05-30 10:02] LABS: Basophils % (A) 0 %; Eosinophils # (A) 0.4 k/uL (0-0.7); Eosinophils % (A) 9 %; HCT 42.6 % (39.0-53.0); HGB 13.9 gm/dL (13.0-17.5); Lymphocytes % (A) 24 %; MCH 27.3 pg (25.0-35.0); MCHC 32.5 g/dL (31.0-37.0); Mean Platelet Volume 7.7; Monocytes # (A) 0.3 k/uL (0-1.0); Monocytes % (A) 8 %; Neutrophils # (A) 2.4 k/uL (1.3-7.7); Neutrophils % (A) 56 %; Platelet Count 224 k/uL (150-450); RBC 5.07 m/uL (4.30-5.90); RDW 14.1 % (11.5-15.5); WBC 4.2 k/uL (3.8-10.6)
[2019-05-30 10:05] LABS: Calcium 9.7 mg/dL (8.4-10.2); MCV 84.1 fL (80.0-100.0); Potassium 4.5 mmol/L (3.5-5.1)
[2019-05-30 10:26] LABS: Prothrombin Time 10.3 sec (9.0-12.0)
--- NOTE | 2019-05-30 11:13 | CC ---
CARDIAC CATHETERIZATION REPORT DATE OF SERVICE: 05/30/2019 PROCEDURE: Left heart catheterization and coronary angiography. PERFORMED BY: Dr. Glenn Vidal. Moderate conscious sedation time was 16 minutes. CLINICAL INFORMATION: Mr. Rich Meza is a 73-year-old gentleman with a history of head and neck cancer, status post chemotherapy, also has had recurrent pulmonary embolism on Lovenox under the care of Dr. Wei. His primary care physician is Dr. Israel. He had a recent abnormal stress test prior to the elective redo left knee operation. There was significant reversible defect in the inferior wall. He was advised coronary angiography prior to elective surgery. Risks, benefits, options, rationale were explained. The patient understood all details and wished to proceed with the procedure. PROCEDURE NOTE: Under local anesthesia and strict aseptic precautions, a 6-Malay introducer was placed in the right radial artery. Using a 3.5 left and a 4.0 right Symone catheters I performed coronary angiography and the same right catheter was used to check LV pressures. LV gram was not performed. Following the procedure, a TR band was applied with good saturation of the fingers of the right hand. CARDIAC CATHETERIZATION FINDINGS: The left ventricular end-diastolic pressure was 8 mmHg without any gradient across aortic valve. CORONARY ANGIOGRAPHY FINDINGS: RIGHT CORONARY ARTERY: This is technically a dominant vessel has no significant disease. This is a very large caliber, large distribution superdominant RCA bifurcates into PDA and PLV. No significant disease. A large conus branch comes off very proximally and has no significant disease. LEFT MAIN CORONARY ARTERY: Short patent disease-free vessel that bifurcates into LAD and circumflex. Left main is free of significant disease. LEFT ANTERIOR DESCENDING CORONARY ARTERY: Good caliber vessel extends along the anterior wall. After giving off a diagonal branch, the caliber decreases. It runs towards the apex, has minor irregularities. No significant disease in the entire LAD system. Starts off as a large caliber vessel, but in the midportion after the diagonal branch, the caliber decreases. Towards the apex, the LAD is a small caliber vessel relatively. There is another second diagonal that comes off in the midportion. LEFT POSTERIOR CIRCUMFLEX CORONARY ARTERY: This is a small nondominant vessel runs in the AV groove, gives off a single obtuse marginal and a left atrial circumflex branch. No significant disease. FINAL IMPRESSION: This patient has a superdominant right coronary artery. No significant coronary disease. Distal left anterior descending artery is small in caliber. Filling pressures are normal. No gradient across aortic valve. RECOMMENDATIONS: Findings were discussed with the patient and . Patient probably has a false- positive stress test. Advised that he can proceed with his knee operation. No restrictions. He will be a moderate risk. Advised cautious fluid administration and optimal BP control and patient can be discharged later on today if he remains stable. MMODL / IJN: [id number] /
[2019-05-30 17:22] VITALS: BP 138/83; PULSE 59
== END ==
LOC: CATHCVL 09:17
PROVIDERS: ATTEND Internal Medicine Interventional Cardiology
DX: I20.0 Unstable angina (principal); I10 Essential (primary) hypertension; Z72.0 Tobacco use; M19.90 Unspecified osteoarthritis, unspecified site; Z85.89 Personal history of malignant neoplasm of other organs and systems; Z92.21 Personal history of antineoplastic chemotherapy; Z86.711 Personal history of pulmonary embolism; Z96.652 Presence of left artificial knee joint; Z86.19 Personal history of other infectious and parasitic diseases; Z79.02 Long term (current) use of antithrombotics/antiplatelets; Z79.82 Long term (current) use of aspirin; Z79.890 Hormone replacement therapy; Z79.891 Long term (current) use of opiate analgesic; Z79.899 Other long term (current) drug therapy; Z88.0 Allergy status to penicillin
CPT/HCPCS: 93458; 80048; 85025; 85610; C1769; C1894; J2250; J2001; J1650; J1644; Q9967

== ENCOUNTER → 2019-08-16 | Outpatient (CLI) | payer MEDICARE, OTHER | END | disposition home or self-care (01) | LOC: LABWHC1 14:34 | PROVIDERS: ATTEND Orthopaedic Surgery | DX: Z01.812 Encounter for preprocedural laboratory examination (principal) | CPT/HCPCS: 87070 ==

== ENCOUNTER 2019-08-22 13:23 | Inpatient (IN) | payer MEDICARE, OTHER ==
[~2019-08-22 13:23] MED LIST changes: +ACETAMINOPHEN TAB 500 MG TAB PO ONE; -ALPRAZolam 0.25 MG TAB PO PRN; -ALPRAZolam 0.5 MG TAB PO PRN; -ASPIRIN 325 MG TAB PO STA; +BISACODYL 10 MG SUPP RECTAL PRN; +DEXAMETHASONE SOD PHOSPHATE 10 MG/ML 1 ML VIAL IV ONE; -ENOXAPARIN 120 MG/0.8 ML SYRINGE SQ STA; +GABAPENTIN 300 MG CAP PO ONE; -HEPARIN SODIUM 1,000 UN/ML (10ML VL) ONE; +HYDROcodone/APAP 7.5-325MG 1 EACH TAB PO PRN; +HYDROmorphone 0.5 MG/0.5 ML SYRINGE IVP PRN; -IOPAMIDOL-370 100ML BTL INJ ONE; -LIDOCAINE 1% INJ 10MG/ML (20 ML MDV) ONE; -LIDOCAINE 1% INJ 10MG/ML (20 ML MDV) SQ ONE; +MAGNESIUM HYDROXIDE 2,400 MG/10 ML CUP PO PRN; +MELOXICAM 7.5 MG TAB PO ONE; -MIDAZOLAM 2 MG/2 ML VIAL IV ONE; +MIDAZOLAM 2 MG/2 ML VIAL IV PRN; +NA PHOS,M-B/NA PHOS,DI-BA 133 ML ENEMA RECTAL PRN; +NALOXONE 0.4 MG/ML 1 ML VIAL IV PRN; -NITROGLYCERIN SL TABS 0.4 MG TAB SUBLINGUAL PRN; +ONDANSETRON 4 MG/2 ML VIAL IVP ONE; +ONDANSETRON 4 MG/2 ML VIAL IVP PRN; +ROPIVACAINE 246.25 MG, EPINEPHrine 0.5 MG, KETOROLAC 30 MG, cloNIDine HCL/PF 80 MCG, WA... MISCELLANE ONE; -SODIUM CHLORIDE 0.9% 1,000 ML IV SCH; -SODIUM CHLORIDE 0.9% 1,000 ML in EMPTY BAG 1 BAG IV ONE; +TRANEXAMIC ACID 1,000 MG in SODIUM CHLORIDE 0.9% 100 ML IVPB ONE; -VERAPAMIL 2.5 MG/ML 2 ML AMP ONE; -VERAPAMIL SYRINGE (5 MG/10 ML) INTRAARTER ONE
[2019-08-22] MEDS ORDERED: ACETAMINOPHEN TAB 500 MG TAB ONE (13:27)
[2019-08-22] MEDS ORDERED: LIDOCAINE 1% (10MG/ML) FOR IV START INTRADERMA ONE ×2 (13:50→13:55)
[2019-08-22] MEDS: LACTATED RINGERS 1,000 ML IV SCH (13:54)
[2019-08-22 13:59] LABS: Glucose,Whole Blood 116 mg/dL (75-99)
[2019-08-22] MEDS ORDERED: MIDAZOLAM 2 MG/2 ML VIAL IV ONE (14:08)
[2019-08-22] MEDS ORDERED: ROPIVACAINE 0.2%-NS ON-Q PUMP 1,090 MG, EMPTY PAIN BALL 1 EACH MISCELLANE PRN (14:36)
--- NOTE | 2019-08-22 14:36 | P.ANPRN ---
Procedure Note - Anesthesia - Nerve Block Performed Left Adductor Canal Infusion Date of Procedure: 08/22/19 Procedure Start Time: 14:08 Procedure Stop Time: 14:20 Location of Patient: PreOp Indication: Acute Post-Operative Pain, Requested by Surgeon Sedation Type: Sedate with meaningful contact maintained Preparation: Sterile Prep, Sterile Dressing Position: Supine Catheter: Indwelling Needle Types: Pajunk Needle Gauge: 21 Ultrasound used to visualize needle placement: Yes Ultrasound used to observe medication spread: Yes Blood Aspirated: No Pain Paresthesia on Injection Noted: No Resistance on Injection: Normal Image Stored and Saved: Yes Events: Uneventful and Well Tolerated (Ropivacaine0.5% 20 mls)
[2019-08-22] MEDS ORDERED: PROPOFOL 10 MG/ML 20 ML VIAL IV ONE (15:23)
[2019-08-22] MEDS ORDERED: SODIUM CHLORIDE 0.9% 100 ML BAG ONE (15:23)
[2019-08-22] MEDS ORDERED: KETAMINE 10 MG/ML 20 ML VIAL ONE (15:23)
[2019-08-22] MEDS ORDERED: fentaNYL (PF) 50 MCG/ML 2 ML AMP ONE (15:23)
[2019-08-22] MEDS ORDERED: MIDAZOLAM 2 MG/2 ML VIAL ONE (15:23)
[2019-08-22] MEDS ORDERED: TRANEXAMIC ACID 1,000 MG/10 ML VIAL ONE (15:23)
[2019-08-22] MEDS ORDERED: PHENYLEPHRINE-0.9% NACL SYG 1 MG/10 ML SYRINGE ONE (15:23)
[2019-08-22] MEDS ORDERED: ceFAZolin 3,000 MG in SODIUM CHLORIDE 0.9% IRRIGATIO 3,000 ML IRRIGATION ONE (15:56)
[2019-08-22] MEDS ORDERED: LACTATED RINGERS 1,000 ML IV ONE (16:16)
--- NOTE | 2019-08-22 17:12 | P.OP ---
Date of Procedure: 08/22/19 Preoperative Diagnosis: Infection left total knee, status post stage I revision Postoperative Diagnosis: Infection left total knee, status post stage I revision Procedure(s) Performed: Stage II revision left total knee arthroplasty with removal of antibiotic spacer Implants: Silvestre and Nephew Legion Oxinium constrained femoral component size 6, left Sil[employer] Nephew Legion press-fit stem, straight 15 mm x 160 mm Silvestre & Nephew legion revision tibial baseplate size 5, left Silvestre [employer]hew Legion press-fit stem, straight 14 mm x 160 mm Silvestre & Nephew Ruth Ann II constrained articular insert size 5-6, 11 mm Silvestre & Nephew Ruth Ann II Patellar component 32 mm All components were cemented using Simplex P bone cement with Tobramycin x 2 The articulation is Oxinium on polyethylene. Anesthesia: spinal Surgeon: Naman Barahona Edge Inker Uppers #1: Nilda Carroll Estimated Blood Loss (ml): 100 Pathology: other (Cultures 2) Condition: stable Disposition: PACU Indications for Procedure: This is a 74-year-old gentleman that has had an infection in his left total knee arthroplasty. He is status post stage I revision with antibiotic spacer placement and IV antibiotic therapy. He subsequently finish his IV antibiotic therapy and is felt that his infection has been cleared. He now presents for stage II revision with removal of antibiotic spacer. Informed consent was obtained. Operative Findings: The operative findings are consistent with a status post stage I revision left total knee arthroplasty. There appears to be no gross evidence of active infection. Description of Procedure: Patient was seen in the preoperative area consent was reviewed and operative site was marked with a skin marker. An adductor canal pain catheter was placed by anesthesia in the preoperative area. Patient was then brought to the operating room and given preoperative antibiotics intravenously. A spinal anesthetic was administered by the anesthesia department. A tourniquet was placed on the upper thigh and the lower extremity was prepped and draped in usual sterile fashion. A gram of transexamic acid was given. A universal timeout was then performed which confirmed the patient's name, surgical site, ALLERGIES, and consent. The lower extremity was then exsanguinated and tourniquet was inflated to 250 mmHg. A standard and anterior midline approach to the knee was performed. The skin and subcutaneous tissue was dissected down to the patellar tendon. A medial parapatellar arthrotomy was then performed. The knee was then extended, the patellar was everted, and the knee was again flexed. The knee was then cultured 2. The antibiotic spacer was then removed without difficulty. Next, sequential reaming of the femoral canal was then performed by hand. The femur was then sized and the distal cutting block was then placed in the distal femur was then freshened with a cut. Next the 4-in-1 cutting block was then placed, and set for the appropriate rotation. Anterior posterior chamfer cuts were then performed as well as anterior posterior cuts. The trial femur was then placed with appropriate length stem. Next the box cutting guide was placed in the bone for the box was then reamed and removed. Femoral trial was then removed. Attention was then directed to the tibia. Sequential reaming of the tibial canal was then performed with appropriate size. The intramedullary tibial cutting guide was then placed the tibia was then freshened with a minimal resection. The tibia was then sized and the canal was prepared for the stem. The tibial trial was then placed and found to have a good fit. The femoral trial was then placed as well. Next, the insert trials were then sequentially used until the appropriate-sized insert was reached. Knee was able to fully extend and flex to 120 and was stable to varus and valgus and anterior posterior stresses throughout all range of motion. The patella was everted and the bone surface was freshened with a saw. The patella was then drilled with the guide and the patella trial was placed. The patella was trialed and tracked normally. Trials were then removed. The cut surfaces of bone were then irrigated with pulsatile lavage. The posterior structures were injected with the ropivacaine solution. The knee was also irrigated with Irrisept solution. The components were then opened, the cement was mixed, and the components were then cemented in place. The cement was allowed to harden with the knee in full extension. While the cement was hardening, the remaining soft tissues were then injected with a ropivacaine solution, which consisted of 246.25 mg of ropivacaine, 0.5 mg of epinephrine, 30 mg of Toradol, 80 g of clonidine, and 48.45 mL of sterile water, for a total of 100 mL of fluid injected. After the cemented hardened. The tourniquet was released, and hemostasis was obtained. A second gram of transexamic acid was given. The knee was again irrigated. The knee was again taken through range of motion and found to be stable throughout all range of motion of 0-130, and the patella tracked normally. The fascia was then closed with #2 strata fix suture. The subcutaneous tissue was closed with 3-0 Vicryl. Devon were used for the skin and placed with the knee in flexion. The patient was placed in a sterile silver dressing. Patient was then transferred to recovery room in stable condition. The administration assistant LESA Christy was required due the complexity surgery and the need for a skilled surgical appliances salesperson. She assisted in positioning, draping, retraction, and closure of the wound.
--- NOTE | 2019-08-22 18:36 | XR ---
EXAMINATION TYPE: XR knee limited LT DATE OF EXAM: 08/22/2019 COMPARISON: 02/17/2019 HISTORY: Knee surgery TECHNIQUE: 2 views FINDINGS: There is a left knee prosthesis. Components are in anatomic position. There is anterior ski n aurelio. There is knee joint effusion. IMPRESSION: There is knee joint prosthesis revision. No complicating process seen.
[2019-08-22] MEDS ORDERED: SENNOSIDES 8.6 MG TAB PO PRN (18:40)
[2019-08-22] MEDS: CYCLOBENZAPRINE 10 MG TAB PO SCH (20:50)
[2019-08-22] MEDS: GABAPENTIN 100 MG CAP PO SCH (20:50)
[2019-08-22] MEDS: PANTOPRAZOLE 40 MG TABLET PO SCH (20:50)
[2019-08-22] MEDS: SENNOSIDES-DOCUSATE SODIUM 1 EACH TAB PO SCH (20:50)
[2019-08-22] MEDS: HYDROmorphone 0.5 MG/0.5 ML SYRINGE IVP PRN ×2 (20:50→23:52)
[2019-08-22] MEDS ORDERED: NON FORMULARY DRUG (Aspirin [Adult Low Dose Aspirin Ec] 81 MG) PO SCH (21:00)
[2019-08-22] MEDS: SODIUM CHLORIDE 0.9% 1,000 ML IV SCH (23:53)
[2019-08-23] MEDS: SODIUM CHLORIDE 0.9% 1,000 ML IV SCH ×2 (01:53→16:00)
--- NOTE | 2019-08-23 02:13 | CONS ---
CONSULTATION REASON FOR CONSULTATION: Advice regarding DVT, GERD, hypertension, and pulmonary embolism being requested by Dr. Barahona. HISTORY OF PRESENT ILLNESS: This 74-year-old gentleman with a past medical history of multiple medical problems including history of DVT, history of GERD, hypertension, history of DJD, pulmonary embolism, sleep apnea, hypothyroidism, being followed by Dr. Israel in the outpatient setting underwent a stage II revision of the left total knee arthroplasty with removal of antibiotic spacer for infection of left knee by Dr. Barahona. The patient tolerated the procedure well. The patient also receiving tube feeds at home. There is no history of any fever or rigors. No history of headache, loss of consciousness, seizures. No chest pain, palpitations, hematochezia or melena at this time. PAST MEDICAL HISTORY: History of DVT, history of GERD, hypertension, DJD, history of pulmonary embolism, history of sleep apnea, hypothyroidism, history of DVT. MEDICATIONS: Home medications are reviewed and include: 1. Lovenox 100 mg subcu at bedtime. 2. Senokot 1 tab daily p.r.n. 3. Prilosec 20 mg b.i.d. 4. Toprol-XL 25 mg q.a.m. 5. Skelaxin 800 mg t.i.d. 6. Loratadine 10 mg daily. 7. Synthroid 25 mcg p.o. q.a.m. 8. [place] p.r.n. 9. Neurontin 100 mg p.o. t.i.d. 10.Fluticasone nasal spray 2 sprays daily. 11.Lipitor 10 mg p.o. daily. 12.Ecotrin 81 mg at bedtime. 13.Zyloprim 100 mg p.o. daily. ALLERGIES: PENICILLIN. FAMILY HISTORY: History of breast cancer in the family. SOCIAL HISTORY: Previous history of smoking. No history of current smoking or alcohol intake. REVIEW OF SYSTEMS: ENT: No diminished hearing or diminished vision. CARDIOVASCULAR SYSTEM: No angina. RESPIRATORY SYSTEM: As mentioned earlier. GI: As mentioned earlier. : No dysuria. NERVOUS SYSTEM: No numbness or weakness. ALLERGY/IMMUNOLOGY: No asthma or hayfever. MUSCULOSKELETAL: As mentioned earlier. HEMATOLOGY: No history of anemia. ENDOCRINE: Hypothyroidism. CONSTITUTIONAL: As mentioned earlier. DERMATOLOGY: Negative. RHEUMATOLOGY: Negative. PSYCHIATRY: As mentioned earlier. PHYSICAL EXAMINATION: The patient is alert and oriented x3. Pulse is 51, blood pressure 110/72, respiration 18, temperature 97.3, pulse ox 96% on room air. HEENT: Conjunctivae normal. Oral mucosa moist. NECK: No jugular venous distention. No carotid bruit. No lymph node enlargement. CARDIOVASCULAR: S1, S2 muffled. RESPIRATORY: Breath sounds diminished at the bases. No rhonchi, no crackles. ABDOMEN: Soft, nontender. LEGS: Status post surgery. NERVOUS SYSTEM: No focal deficits. LABS: Labs at this time, glucose 116. ASSESSMENT: 1. Status post stage II revision of the left total knee arthroplasty with removal of antibiotic spacer. 2. History of deep vein thrombosis. 3. History of laryngeal cancer, status post chemo, radiation and PEG tube placement. 4. Gastroesophageal reflux disease. 5. Hypertension. 6. History of degenerative joint disease. 7. History of pulmonary embolism. 8. History of sleep apnea. 9. History of hypothyroidism. 10.History of deep venous thrombosis left lower leg. 11.Tube feedings at night for nutrition, Jevity. 12.History of varicose veins. 13.History of cardiac catheterization. 14.Remote history of nicotine dependence. 15.FULL CODE. RECOMMENDATIONS AND DISCUSSION: This 74-year-old gentleman who presented with multiple complex medical issues, at this time, we will monitor the patient closely, continue the current medication, continue symptomatic treatment. Otherwise at this time I would recommend resume the home medications including Jevity, aspiration precautions, DVT prophylaxis, incentive spirometry. We will follow the patient closely with you. Patient may be asked to follow with Dr. Israel closely after discharge. Thank you Dr. Barahona for letting us participate in the care of this patient. MMODL / IJN: [id number] /
[2019-08-23] MEDS: LEVOTHYROXINE 25 MCG TAB PO SCH (05:59)
[2019-08-23] MEDS: HYDROcodone/APAP 7.5-325MG 1 EACH TAB PO PRN ×4 (06:03→23:53)
--- NOTE | 2019-08-23 06:49 | P.PN ---
Progress Note - Text Progress Note Date: 08/23/19 The patient is doing well status post total knee replacement. Pain is well con trolled by a combination of local anesthetic infusion through the adductor canal catheter and oral analgesics. There are no signs of infection around the catheter skin entry site. The local anesthetic infusion will be continued as per protocol.
[2019-08-23] MEDS: ATORVASTATIN 10 MG TAB PO SCH (07:08)
[2019-08-23] MEDS: CYCLOBENZAPRINE 10 MG TAB PO SCH ×2 (07:08→21:14)
[2019-08-23] MEDS: PANTOPRAZOLE 40 MG TABLET PO SCH ×2 (07:09→21:14)
[2019-08-23] MEDS: METOPROLOL SUCCINATE (ER) 25 MG TAB.ER.24H PO SCH (07:09)
[2019-08-23] MEDS: ALLOPURINOL 100 MG TAB PO SCH (07:09)
[2019-08-23] MEDS: GABAPENTIN 100 MG CAP PO SCH ×3 (07:09→21:14)
[2019-08-23] MEDS: ASPIRIN 81 MG PO SCH (07:09)
[2019-08-23] MEDS: LORATADINE 10 MG TAB PO SCH (07:09)
[2019-08-23] MEDS: LACTATED RINGERS 1,000 ML IV SCH (07:11)
[2019-08-23] MEDS: FLUTICASONE 50MCG/SPRAY NASAL 16GM EA NOSTRIL SCH (08:18)
[2019-08-23 10:12] LABS: Anisocytosis Slight; Basophils % (A) 0 %; Eosinophils # (A) 0.1 k/uL (0-0.7); Eosinophils % (A) 1 %; HCT 34.1 % (39.0-53.0); HGB 11.4 gm/dL (13.0-17.5); Lymphocytes # (A) 0.9 k/uL (1.0-4.8); Lymphocytes % (A) 10 %; MCH 29.8 pg (25.0-35.0); MCHC 33.5 g/dL (31.0-37.0); MCV 88.8 fL (80.0-100.0); Mean Platelet Volume 8.3; Monocytes # (A) 0.6 k/uL (0-1.0); Monocytes % (A) 7 %; Neutrophils # (A) 7.5 k/uL (1.3-7.7); Neutrophils % (A) 81 %; Platelet Count 168 k/uL (150-450); RBC 3.84 m/uL (4.30-5.90); RDW 16.2 % (11.5-15.5); WBC 9.3 k/uL (3.8-10.6)
[2019-08-23 12:47] VITALS: BMI 29.7
--- NOTE | 2019-08-23 13:06 | P.PN ---
Subjective Progress Note Date: 08/23/19 This is a 74-year-old male who is status post stage II revision left total knee arthroplasty with removal of antibiotic spacer. This is postoperative day #1 and patient is seen and evaluated at bedside with Dr. Naman Barahona. Patient states that his pain is well-controlled today and he denies any new complaints. Patient denies any fever/chills, numbness, weakness, tingling, abdominal pain, shortness of breath or chest pain. Objective - Vital Signs Vital signs: Vital Signs Temp 98.8 F 08/23/19 07:00 Pulse 74 08/23/19 07:00 Resp 16 08/23/19 07:25 BP 108/67 08/23/19 07:00 Pulse Ox 95 08/23/19 07:00 Intake & Output 08/22/19 08/23/19 08/23/19 18:59 06:59 18:59 Intake Total 1451 Output Total 100 Balance 1351 Weight 99.5 kg 99.5 kg Intake: IV 1451 Output: Estimated Blood Loss 100 - Exam Vital signs are stable. Patient is in no acute distress and is alert and oriented 3. Calf is soft and nontender to palpation. Dressing is intact with mild drainage present. Patient has full foot and ankle motion without pain or difficulty. Neurovascular status and circulatory status are intact. - Labs CBC & Chem 7: 08/23/19 09:27 08/22/19 13:52 Labs: Abnormal Lab Results - Last 24 Hours (Table) 08/22/19 08/23/19 Range/Units 13:57 09:27 RBC 3.84 L (4.30-5.90) m/uL Hgb 11.4 L (13.0-17.5) gm/dL Hct 34.1 L (39.0-53.0) % RDW 16.2 H (11.5-15.5) % Lymphocytes # 0.9 L (1.0-4.8) k/uL POC Glucose (mg/dL) 116 H (75-99) mg/dL Microbiology - Last 24 Hours (Table) 08/22/19 17:03 Gram Stain - Preliminary Knee - Left Wound Culture - Preliminary 08/22/19 17:03 Gram Stain - Preliminary Knee - Left Wound Culture - Preliminary 08/22/19 17:03 Anaerobic Culture - Preliminary Knee - Left 08/22/19 17:03 Anaerobic Culture - Preliminary Knee - Left Assessment and Plan Assessment: Status post stage II revision left total knee arthroplasty with removal of antibiotic spacer (1) History of infection of total joint prosthesis of knee Current Visit: Yes Status: Acute Code(s): Z87.39 - PERSONAL HISTORY OF DISEASES OF THE MS SYS AND CONN TISS SNOMED Code(s): 406348478 (2) History of total knee arthroplasty Current Visit: No Status: Acute Code(s): Z96.659 - PRESENCE OF UNSPECIFIED ARTIFICIAL KNEE JOINT SNOMED Code(s): 2727424114249 Plan: #1 Continue with routine postoperative care and pain control. Daily dressing changes. Sandstone to be removed 10-14 days postoperatively. #2 Anticoagulation with Lovenox. #3 Physical therapy and CPM today. #4 Appreciate input from medicine. #5 Cultures are negative. #6. Continue IV antibiotics. #7. Anticipate discharge home with home care likely tomorrow.
[2019-08-23] MEDS ORDERED: ENOXAPARIN 120 MG/0.8 ML SYRINGE SQ SCH (21:00)
[2019-08-23] MEDS: SENNOSIDES-DOCUSATE SODIUM 1 EACH TAB PO SCH (21:14)
--- NOTE | 2019-08-23 22:41 | PN ---
PROGRESS NOTE DATE OF SERVICE: 08/23/2019 This 74-year-old gentleman who was admitted with stage II revision of the left total knee arthroplasty is being closely monitored. No chest pain. No palpitations. No fever. have been initiated. PHYSICAL EXAMINATION: Alert and oriented x3. Pulse 53, blood pressure 94/69, respirations 16, temperature 98 degrees, pulse ox 94% on room air. HEENT: Conjunctivae normal. NECK: No jugular venous distention. CARDIOVASCULAR SYSTEM: S1, S2 muffled. RESPIRATORY SYSTEM: Breath sounds diminished at the bases. No rhonchi. No crackles. ABDOMEN: Soft, non-tender. LEGS: No edema. No swelling. NERVOUS SYSTEM: No focal deficit. LABS: WBC 9.3, hemoglobin 11.4. ASSESSMENT: 1. Status post stage II revision of left total knee arthroplasty with removal of the antibiotic spacer. 2. History of deep vein thrombosis. 3. History of laryngeal cancer, status post chemoradiation and PEG tube placement. 4. Gastroesophageal reflux disease. 5. Hypertension. 6. History of degenerative joint disease. 7. History of pulmonary embolism. 8. History of sleep apnea. 9. History of hypothyroidism. 10.History of deep vein thrombosis of the left leg. 11.Tube feedings at night for nutrition Jevity. 12.History of varicose veins. 13.History of cardiac catheterization. 14.Remote history of nicotine dependence. 15.FULL CODE. RECOMMENDATIONS AND DISCUSSION: I recommend to continue current medications, continue with the monitoring, symptomatic treatment. Recommend repeat labs. I would also recommend monitoring the blood pressure closely. The patient is on metoprolol. Will continue to monitor. Closely follow with Orthopedic Surgery. Further recommendations to follow. MMODL / IJN: [id number] / MTDD
[2019-08-24] MEDS: SODIUM CHLORIDE 0.9% 1,000 ML IV SCH (03:16)
[2019-08-24] MEDS: LACTATED RINGERS 1,000 ML IV SCH (04:58)
[2019-08-24] MEDS: LEVOTHYROXINE 25 MCG TAB PO SCH (05:07)
[2019-08-24] MEDS: METOPROLOL SUCCINATE (ER) 25 MG TAB.ER.24H PO SCH (07:10)
[2019-08-24] MEDS: ATORVASTATIN 10 MG TAB PO SCH (07:10)
[2019-08-24] MEDS: CYCLOBENZAPRINE 10 MG TAB PO SCH (07:10)
[2019-08-24] MEDS: ALLOPURINOL 100 MG TAB PO SCH (07:11)
[2019-08-24] MEDS: ASPIRIN 81 MG PO SCH (07:11)
[2019-08-24] MEDS: PANTOPRAZOLE 40 MG TABLET PO SCH (07:11)
[2019-08-24] MEDS: GABAPENTIN 100 MG CAP PO SCH (07:11)
[2019-08-24] MEDS: FLUTICASONE 50MCG/SPRAY NASAL 16GM EA NOSTRIL SCH (07:12)
[2019-08-24] MEDS: LORATADINE 10 MG TAB PO SCH (07:12)
[2019-08-24] MEDS: HYDROcodone/APAP 7.5-325MG 1 EACH TAB PO PRN ×2 (07:13→13:32)
[2019-08-24 08:01] VITALS: BP 113/78; PULSE 76; RESP 18; TEMP 99
[2019-08-24 08:33] LABS: Calcium 8.7 mg/dL (8.4-10.2); Potassium 5.3 mmol/L (3.5-5.1)
--- NOTE | 2019-08-24 09:42 | P.DS ---
Providers Date of admission: 08/22/19 18:21 Expected date of discharge: 08/24/19 Attending physician: Naman Barahona Consults: 08/22/19 08:37 Consult Physician Routine Consulting Provider: Anita Murdock Consult Reason/Comments: medical management and anticoagulation Do you want consulting provider notified?: Yes Primary care physician: Gil Israel - Discharge Diagnosis(es) (1) History of infection of total joint prosthesis of knee Current Visit: Yes Status: Acute (2) History of total knee arthroplasty Current Visit: No Status: Acute Hospital Course: This is a 74-year-old male with known history of infection of left total knee arthroplasty. Patient previously underwent stage I revision left total knee arthroplasty with placement of an antibiotic spacer. The patient's infection was successfully treated with a course of IV antibiotics. The patient presented for reevaluation as an outpatient. After discussion and consideration patient elects to proceed with stage II revision left total knee arthroplasty with removal of antibiotic spacer. The patient is seen preoperatively by Dr. Barahona and medically cleared for surgery by their primary care physician and infectious disease. Patient is admitted to [facility] on 08/22/2019 for stage II revision left total knee arthroplasty with removal of antibiotic spacer. The procedures performed without complication or sequelae. The patient is doing well postoperatively. Labs and vital signs are stable on day of discharge. Cultures are negative. On day of discharge patient's knee incision is healing well. There is minimal erythema. There is no drainage noted at this time. There is minimal soft tissue swelling to the knee. Patient has full foot and ankle motion without difficulty or pain. Calf is soft and nontender to palpation. Neurovascular status to the left lower extremity is intact. Patient is discharged home in good condition. Opioid start talking form is reviewed and signed at patient bedside. Please see med rec for accurate list of home medications. Plan - Discharge Summary Discharge Rx Participant: Yes New Discharge Prescriptions: New Cephalexin [Keflex] 500 mg PO Q8H 30 Days #90 cap HYDROcodone/APAP 7.5-325MG [Salix 7.5-325] 1 - 2 tab PO Q6H PRN #32 tab PRN Reason: Pain No Action Omeprazole [PriLOSEC] 20 mg PO BID Allopurinol [Zyloprim] 100 mg PO DAILY Metaxalone [Skelaxin] 800 mg PO TID Aspirin [Adult Low Dose Aspirin EC] 81 mg PO HS Fluticasone Nasal [place] [Flonase Nasal [place]] 2 spr EA NOSTRIL DAILY Gabapentin [Neurontin] 100 mg PO TID Enoxaparin [Lovenox] 120 mg SQ HS Hydrocodone/Acetaminophen [Salix 7.5-325] 1 tab PO BID PRN PRN Reason: Pain Levothyroxine Sodium [Synthroid] 25 mcg PO QAM Loratadine 10 mg PO DAILY Metoprolol Succinate (ER) [Toprol Xl] 25 mg PO QAM Sennosides [Senokot] 1 tab PO DAILY PRN PRN Reason: Constipation Atorvastatin [Lipitor] 10 mg PO DAILY Discharge Medication List Allopurinol [Zyloprim] 100 mg PO DAILY 07/27/13 [History] Metaxalone [Skelaxin] 800 mg PO TID 07/27/13 [History] Omeprazole [PriLOSEC] 20 mg PO BID 07/27/13 [History] Aspirin [Adult Low Dose Aspirin EC] 81 mg PO HS 06/26/17 [History] Fluticasone Nasal [place] [Flonase Nasal [place]] 2 spr EA NOSTRIL DAILY 07/30/17 [History] Gabapentin [Neurontin] 100 mg PO TID 12/17/17 [History] Enoxaparin [Lovenox] 120 mg SQ HS 01/19/18 [History] Hydrocodone/Acetaminophen [Salix 7.5-325] 1 tab PO BID PRN 08/19/18 [History] Levothyroxine Sodium [Synthroid] 25 mcg PO QAM 08/19/18 [History] Loratadine 10 mg PO DAILY 08/19/18 [History] Metoprolol Succinate (ER) [Toprol Xl] 25 mg PO QAM 08/19/18 [History] Sennosides [Senokot] 1 tab PO DAILY PRN 02/16/19 [History] Atorvastatin [Lipitor] 10 mg PO DAILY 05/30/19 [History] Cephalexin [Keflex] 500 mg PO Q8H 30 Days #90 cap 08/24/19 [Rx] HYDROcodone/APAP 7.5-325MG [Salix 7.5-325] 1 - 2 tab PO Q6H PRN #32 tab 08/24/19 [Rx] Follow up Appointment(s)/Referral(s): [facility], [NON-STAFF] - Naman Barahona DO [Doctor of Osteopathic Medicine] - 09/07/19 9:35 am Activity/Diet/Wound Care/Special Instructions: Weightbearing as tolerated with a walker. CPM 5-6h daily. Daily dressing changes. Change dressing as often as needed to keep clean and dry. May shower in 24-48 hours if no drainage from the incision. Recommend use of compression stockings daily until follow up to help prevent swelling and blood clots. May remove at night before sleeping. Please follow up with [facility] and call with any questions or concerns, . Discharge Disposition: HOME WITH HOME HEALTH SERVICES
--- NOTE | 2019-08-24 21:59 | PN ---
PROGRESS NOTE DATE OF SERVICE: 08/24/2019 This 74-year-old gentleman who was admitted with stage II revision of left total knee is improving significantly. No chest pain. No palpitations. No fever. PHYSICAL EXAMINATION: Alert and oriented x3. Pulse 76, blood pressure 113/78, respiration 18, temperature 99 degrees, pulse ox 97% on CPAP. HEENT: Conjunctivae normal. NECK: No jugular venous distention. CARDIOVASCULAR SYSTEM: S1, S2 muffled. RESPIRATORY SYSTEM: Breath sounds diminished at the bases. Scattered rhonchi. No crackles. ABDOMEN: Soft, non-tender. NERVOUS SYSTEM: No focal deficit. LABS: WBC 9.7, hemoglobin 11.4. Sodium 138, potassium 5.3, creatinine is 1.3. ASSESSMENT: 1. Status post stage II revision of left total knee arthroplasty with removal of the antibiotic spacer. 2. History of deep vein thrombosis. 3. History of laryngeal cancer, status post chemoradiation and PEG tube placement. 4. Gastroesophageal reflux disease. 5. Hypertension. 6. History of degenerative joint disease. 7. History of pulmonary embolism. 8. History of sleep apnea. 9. History of hypothyroidism. 10.History of deep vein thrombosis of the left leg. 11.Tube feeding at night for nutrition with Jevity. 12.History of varicose veins. 13.History of cardiac catheterization. 14.Remote history of nicotine dependence. 15.FULL CODE. RECOMMENDATIONS AND DISCUSSION: I recommend to continue current medications, continue with the monitoring, symptomatic treatment. Resume the home medications. Follow with primary physician in the outpatient setting. Repeat labs. Rest of the recommendations per Orthopedic Surgery. Further recommendations to follow. MMODL / IJN: [id number] /
== END 2019-08-24 14:30 | disposition home health service (06) | DRG 468 ==
LOC: OR 13:23 → 4SSUR 18:21
PROVIDERS: ADMIT Orthopaedic Surgery; ATTEND Orthopaedic Surgery
PROC: 5A09357 Assistance with Respiratory Ventilation, Less than 24 Consecutive Hours, Continuous Positive Airway Pressure (ICD-10-PCS; 2019-08-22)
PROC: 3E0G76Z Introduction of Nutritional Substance into Upper GI, Via Natural or Artificial Opening (ICD-10-PCS; 2019-08-22)
PROC: 0SPD08Z Removal of Spacer from Left Knee Joint, Open Approach (ICD-10-PCS; principal; 2019-08-22 14:35)
PROC: 0SRD069 Replacement of Left Knee Joint with Oxidized Zirconium on Polyethylene Synthetic Substitute, Cemented, Open Approach (ICD-10-PCS; principal; 2019-08-22 14:35)
DX: T84.54XA Infection and inflammatory reaction due to internal left knee prosthesis, initial encounter (principal); Y83.1 Surgical operation with implant of artificial internal device as the cause of abnormal reaction of the patient, or of later complication, without mention of misadventure at the time of the procedure; E03.9 Hypothyroidism, unspecified; G47.30 Sleep apnea, unspecified; I10 Essential (primary) hypertension; Z86.718 Personal history of other venous thrombosis and embolism; Z86.711 Personal history of pulmonary embolism; Z87.891 Personal history of nicotine dependence; Z85.21 Personal history of malignant neoplasm of larynx; Z92.21 Personal history of antineoplastic chemotherapy; Z92.3 Personal history of irradiation; K21.9 Gastro-esophageal reflux disease without esophagitis; Z79.890 Hormone replacement therapy; Z79.899 Other long term (current) drug therapy; Z93.1 Gastrostomy status
CPT/HCPCS: 64448; 76942; 80048; 84132; 85025; 87070; 87075; 87205; 94660; 94760

== ENCOUNTER → 2023-06-24 | Outpatient (CLI) | payer MEDICARE, OTHER ==
--- NOTE | 2023-06-25 07:59 | US ---
EXAMINATION TYPE: US prostate transrectal DATE OF EXAM: 06/24/2023 COMPARISON: NONE CLINICAL INDICATION: Male, 77 years old with history of R97.2 ELEVATED PROSTATE SPECIFIC ANTIGEN [PSA ]; Elevated PSA This examination was performed using the transrectal probe. EXAM MEASUREMENTS: Gland Size: 7.0 x 3.9 x 5.3cm Volume: 76.2ml Predicted PSA: 9.1 Actual PSA (if available):5.3 Heterogeneous gland. Possible subtle hypoechoic area mid peripheral zone = 0.6 x 0.3 x 0.5cm IMPRESSION: Subtle area of decreased echogenicity mid peripheral zone. Consider tissue diagnosis or short-term follow-up in 3-6 months. Correlate with serial PSA levels. Predicted PSA = volume x 0.12 ng/ml Calculated Volume = 0.5236 x L x W x H
== END | disposition home or self-care (01) ==
LOC: RADUSWWP 15:58
PROVIDERS: ATTEND Family Medicine
DX: R97.20 Elevated prostate specific antigen [PSA] (principal)
CPT/HCPCS: 76872

== ENCOUNTER → 2024-04-20 | Outpatient (CLI) | payer MEDICARE, OTHER ==
--- NOTE | 2024-04-23 21:38 | CT ---
EXAMINATION TYPE: CT chest wo con DATE OF EXAM: 04/20/2024 4:48 PM COMPARISON: 03/04/2019 CLINICAL INDICATION: Male, 78 years old with history of J44.9 CHRONIC OBSTRUCTIVE PULMONARY DISEASE R 06.00, Shortness of breath for the last couple years. TECHNIQUE: Axial images were obtained at 5 mm thick sections. Reconstructed images are reviewed on [employer] computer in the coronal plane. Contrast used: mL of , (none if empty) Oral contrast used: (none if empty) CT DLP: 568.4 mGycm, Automated exposure control for dose reduction was used. FINDINGS: Thyroid not visualized No suspicious lung nodules or focal infiltrates are present. No enlarged mediastinal or hilar adenopathy is evident. The ascending aorta diameter at the level o f the main pulmonary artery is 4.5 cm. The main pulmonary artery diameter at the bifurcation is 3.2 cm. Coronary artery calcifications present. Moderate size hiatal hernia is present. Previous pericard ial effusion resolved Limited CT sections are obtained through the upper abdomen. Multiple large cysts are present in bilat eral kidneys. Correlate for polycystic kidney disease. IMPRESSION: 1. Ascending thoracic aortic aneurysm of 4.5 cm. 2. Moderate-sized Hiatal hernia. 3. Polycystic kidney changes. [facility], , 04/23/2024 9:36 PM
== END | disposition home or self-care (01) ==
LOC: RADCTMAIN 16:19
PROVIDERS: ATTEND Family Medicine
DX: J44.9 Chronic obstructive pulmonary disease, unspecified (principal); I71.21 Aneurysm of the ascending aorta, without rupture; K44.9 Diaphragmatic hernia without obstruction or gangrene; Q61.3 Polycystic kidney, unspecified
CPT/HCPCS: 71250

== ENCOUNTER → 2024-05-31 | Outpatient (CLI) | payer MEDICARE, OTHER | END | disposition home or self-care (01) | LOC: LABWHC1 11:40 | PROVIDERS: ATTEND Urology | DX: R97.20 Elevated prostate specific antigen [PSA] (principal) | CPT/HCPCS: 36415; 84153 ==